=== PATIENT | male | born 1935 | race Caucasian/White ===

== ENCOUNTER 2017-02-14 12:29 | Inpatient (IN) | payer OTHER ==
[2017-02-14] MEDS ORDERED: TYLENOL PO PRN (12:35)
[2017-02-14] MEDS ORDERED: NITROSTAT SL PRN (12:35)
[2017-02-14] MEDS ORDERED: VISTARIL INJ IM PRN (12:35)
[2017-02-14] MEDS ORDERED: ATROPINE SULFATE PFS IVP PRN (12:35)
[2017-02-14] MEDS ORDERED: MORPHINE 4 MG/ML SYRINGE IVP PRN (12:35)
[2017-02-14] MEDS ORDERED: SOLU-CORTEF 250 MG IVP STA (12:39)
[2017-02-14 12:44] LABS: ABG PCO2 61.7 mmHg (35-45); ABG PH 7.367 (7.35-7.45)
[2017-02-14 12:45] LABS: ABG BASE EXCESS 10 (-2.0-2.0); ABG HCO3 35.4 (22.0-26.0); ABG TCO2 37 (22.0-28.0)
[2017-02-14 12:48] VITALS: BMI 20.9
[2017-02-14 13:24] LABS: BASOPHILS % (AUTO) 0.7 % (0.0-3.0); EOSINOPHILS # (AUTO) 0.1 K/ul (0.0-0.7); EOSINOPHILS % (AUTO) 0.9 % (0.0-7.0); HEMATOCRIT 42.9 % (42.0-52.0); HEMOGLOBIN 13.5 g/dl (14.0-18.0); IMMATURE GRANULOCYTE % (AUTO) 0.4 % (0.0-5.0); LYMPHOCYTES # (AUTO) 0.6 K/uL (0.60-3.4); LYMPHOCYTES % (AUTO) 11.2 (10.0-50.0); MEAN CORPUSCULAR HEMOGLOBIN 29.7 pg (27.0-31.0); MEAN CORPUSCULAR HGB CONC 31.5 (31.8-35.4); MEAN CORPUSCULAR VOLUME 94.3 fl (80.0-94.0); MONOCYTES # (AUTO) 0.5 K/uL (0.4-2.0); MONOCYTES % (AUTO) 9.7 (0-10); NEUTROPHILS # (AUTO) 4.3 K/ul (2.0-6.9); NEUTROPHILS % (AUTO) 77.1; PLATELET COUNT 186 10^3/uL (140-440); RED BLOOD COUNT 4.55 10^6/ul (4.70-6.10); WHITE BLOOD COUNT 5.54 K/ul (4.2-10.2)
[2017-02-14 13:26] LABS: BILIRUBIN,URINE Negative (NEGATIVE); KETONES,URINE Negative (NEGATIVE); LEUKOCYTE ESTERASE ,URINE Negative (NEGATIVE); NITRITE,URINE Negative (NEGATIVE); PH,URINE 8.5 (5-9); PROTEIN,URINE Negative (NEGATIVE); URINE, BLOOD Negative (NEGATIVE)
[2017-02-14 13:28] LABS: ADD URINE MICROSCOPIC NO
[2017-02-14] MEDS: ZITHROMAX PO SCH (13:58)
[2017-02-14] MEDS: ROCEPHIN 1 GM in SODIUM CHLORIDE 50 ML IV SCH (14:00)
[2017-02-14 14:03] LABS: ALBUMIN/GLOBULIN RATIO 1.14; ANION GAP 12.8; BILIRUBIN,TOTAL 0.77 mg/dL (0.00-1.20); BUN/CREATININE RATIO 14.49; CALCIUM 10.2 mg/dL (8.2-10.2); CREATININE 0.69 mg/dL (0.60-1.10); POTASSIUM 3.8 mmol/L (3.5-5.1); TOTAL PROTEIN 7.5 g/dL (5.8-8.1); TROPONIN I 0.042 ng/ml (0.0000-0.4000)
[2017-02-14 14:04] LABS: CREATINE KINASE MB 3.8 ng/ml (0.0-3.6)
[2017-02-14] MEDS ORDERED: ANTIVERT PO PRN (14:52)
--- NOTE | 2017-02-14 15:04 | DI ---
EXAM: Chest one view HISTORY: Shortness of air COMPARISON: 11/15/2015 TECHNIQUE: Single view of the chest was performed FINDINGS: Small right pleural effusion with adjacent atelectasis. No definite consolidation. Lung s are hyperinflated. No visible pneumothorax. Heart normal in size. Mediastinal contour unchanged , noting atherosclerosis. IMPRESSION: 1. Small right pleural effusion with adjacent atelectasis. No definite consolidation. 2. Hyperinflated lungs suggest chronic obstructive pulmonary disease
[2017-02-14] MEDS: PULMICORT 0.5 MG/2 ML NEB SCH (17:46)
[2017-02-14] MEDS: XOPENEX 1.25 MG NEB SCH ×2 (17:47→23:50)
[2017-02-14] MEDS: COZAAR PO SCH (20:28)
[2017-02-14] MEDS: XANAX PO SCH (20:28)
[2017-02-14 21:33] LABS: TROPONIN I 0.032 ng/ml (0.0000-0.4000)
[2017-02-14 21:34] LABS: CREATINE KINASE MB 3.9 ng/ml (0.0-3.6)
[2017-02-15] MEDS: PULMICORT 0.5 MG/2 ML NEB SCH ×2 (05:03→18:00)
[2017-02-15] MEDS: XOPENEX 1.25 MG NEB SCH ×3 (05:03→18:01)
[2017-02-15] MEDS ORDERED: DECADRON 4 MG/ML SDV IVP STA ×2 (08:38→09:25)
[2017-02-15 08:52] LABS: ABG PH 7.371 (7.35-7.45)
[2017-02-15 08:56] LABS: ABG BASE EXCESS 10 (-2.0-2.0); ABG HCO3 35.4 (22.0-26.0); ABG PCO2 61.1 mmHg (35-45); ABG TCO2 37 (22.0-28.0)
[2017-02-15] MEDS: ROCEPHIN 1 GM in SODIUM CHLORIDE 50 ML IV SCH (09:23)
[2017-02-15] MEDS: ZITHROMAX PO SCH (09:23)
[2017-02-15] MEDS: COZAAR PO SCH ×2 (09:23→21:08)
[2017-02-15] MEDS: LIPITOR PO SCH (09:23)
[2017-02-15] MEDS: NORVASC PO SCH (09:24)
[2017-02-15] MEDS: ASPIRIN EC PO SCH (09:24)
[2017-02-15 09:26] LABS: ABG BASE EXCESS 10 (-2.0-2.0); ABG PCO2 59.3 mmHg (35-45); ABG PH 7.379 (7.35-7.45)
[2017-02-15 09:27] LABS: ABG TCO2 37 (22.0-28.0)
--- NOTE | 2017-02-15 09:43 | PCM.PROG ---
Attending Provider: ATTENDING PROVIDER: Dr. BRIANA TORRES DATE OF SERVICE: 02/15/17 SUBJECTIVE: This 82 year old WHITE/ M was hospitalized 02/14/17 with acute respiratory failure and bronchitis. The patient is feeling a lot better. REVIEW OF SYSTEMS: CONSTITUTIONAL: No night sweats. No fatigue, malaise, lethargy. No fever or chills. HEENT: Eyes: No visual changes. No eye pain. No eye discharge. ENT: No runny nose. No epistaxis. No sinus pain. No odynophagia. No congestion. RESPIRATORY: No cough, no congestion. No hemoptysis. CARDIOVASCULAR: No angina symptoms. No CHF symptoms. No atypical chest pain for CAD. No palpitations. No shortness of breath. GASTROINTESTINAL: No abdominal pain. No nausea or vomiting. No diarrhea or constipation. No hematemesis. No hematochezia. GENITOURINARY: No urgency. No frequency. No dysuria. No hematuria. No obstructive symptoms. No discharge. No pain. No significant abnormal bleeding. MUSCULOSKELETAL: No musculoskeletal pain; no joint swelling. NEUROLOGICAL: Awake, alert, oriented to time, place and person. No headache. No neck pain. No syncope. No seizures. No dizziness. PSYCHIATRIC: Not anxious. No depression. No suicidal thoughts. No homicidal thoughts. SKIN: No rash. No lesions. No wounds. ENDOCRINE: No unexplained weight loss. No weight gain. HEMATOLOGIC/LYMPHATIC: No anemia. No purpura. No petechiae. No prolonged or excessive bleeding. No palpable lymph nodes. PHYSICAL EXAMINATION: GENERAL: The patient is awake, alert and oriented to time, place and person, sitting in bed in no distress. VITAL SIGNS: Temperature 96.9 F, Pulse 71, Respiratory Rate 22, BP 135/67, Pulse Ox 98% HEENT: Head normocephalic, atraumatic. Eyes: Extraocular muscles are intact. Pupils are equal, round and reactive to light and accommodation. Ears: No lesions. Nose appeared normal. Throat: No exudate or erythema. NECK: Supple. No JVD, no carotid bruit. No lymphadenopathy or thyromegaly. LUNGS:Decreased and clear to auscultation. Percussion note normal. Chest symmetrical. HEART: S1, S2, no S3. No murmurs. No cyanosis or clubbing. No ascites. Pulses: Dorsalis pedis and posterior tibial pulses +1 to +2 both sides. ABDOMEN: Soft. Non-tender. Bowel sounds active. No CVA tenderness. No mass felt. EXTREMITIES: No edema. Full range of motion of all extremities, equal. NEUROLOGIC: No focal deficit. Cranial nerves II through XII are grossly intact. No headache, no double vision or headache. SKIN: Not dry. Intact. Turgor-normal. LYMPHATIC: No palpable lymph nodes/no lymphedema. MUSCULOSKELETAL: Normal joints with no swelling. Muscle tone is normal. LAB REVIEW: 02/14/17 13:10 02/14/17 13:20 02/14/17 20:50: Total Creatine Kinase 177, CK-MB (CK-2) 3.9 H, CK-MB (CK-2) % 2.09426, Myoglobin 129, Troponin I 0.0320 02/14/17 13:23: B-Natriuretic Peptide 60 02/14/17 13:20: Sodium 137, Potassium 3.8, Chloride 94 L, Carbon Dioxide 34 H, Anion Gap 12.8, BUN 10, Creatinine 0.69, Estimated GFR (MDRD) 110.00, BUN/ Creatinine Ratio 14.49, Glucose 100, Calcium 10.2, Total Bilirubin 0.77, AST 22 , ALT 12, Alkaline Phosphatase 74, Total Creatine Kinase 176, CK-MB (CK-2) 3.8 H , CK-MB (CK-2) % 2.31784, Myoglobin 123, Troponin I 0.0420, Total Protein 7.5, Albumin 4.0, Globulin 3.5, Albumin/Globulin Ratio 1.14 02/14/17 13:10: WBC 5.54, RBC 4.55 L, Hgb 13.5 L, Hct 42.9, MCV 94.3 H, MCH 29.7 , MCHC 31.5 L, RDW Coeff of Amber 13.2, Plt Count 186, Immature Gran % (Auto) 0.4 , Neut % (Auto) 77.1, Lymph % (Auto) 11.2, [place] % (Auto) 9.7, Eos % (Auto) 0.9, Baso % (Auto) 0.7, Immature Gran # (Auto) 0.0, Neut # 4.3, Lymph # 0.6, [place] # 0.5, Eos # 0.1, Baso # 0.0, Urine Color Yellow, Urine Clarity Clear, Urine pH 8.5, Ur Specific [place] 1.015, Urine Protein Negative, Urine Glucose (UA) Negative, Urine Ketones Negative, Urine Blood Negative, Urine Nitrite Negative, Urine Bilirubin Negative, Urine Urobilinogen 0.2, Ur Leukocyte Esterase Negative 02/14/17 12:38: Puncture Site Rr, O2 Saturation 88.0 L, ABG pH 7.367, ABG pCO2 61.7 H, ABG pO2 59.0 L*, ABG HCO3 35.4 H, ABG Total CO2 37 H, ABG Base Excess 10 H, Steven Test +, O2 Delivery Device Nc, Oxygen Liter Flow 2.00, FiO2 % 28.0 ASSESSMENT: 1. Respiratory failure 2. Bronchitis 3. Pleuritic pain PLAN: 1. Steroids 2. Oxygen 3. Antibiotics Plan and coordination of the patient's care discussed in the presence of Motorcycle Fabricator and nurse. CONDITION: Stable The patient's oxygen tank was empty and that could have triggered all his respiratory problems. The patient is stubborn and non compliant. SCRIBED BY: CHIKI MOORE Cardiology Teacher scribed while in presence of service performed by Dr. BRIANA TORRES on 02/15/17 ([id number])
--- NOTE | 2017-02-15 13:33 | HP ---
DATE OF SERVICE: 02/14/17 REASON FOR HOSPITALIZATION/HISTORY OF PRESENT ILLNESS: The patient walked into the office. The patient is on 2 liters nasal cannula. Shortness of breath with minimal exertion. 86% oxygen saturation with exertion. Sinus drainage/cough. Duration of symptoms 7 days, getting worse. Son drive him to the office. REVIEW OF SYSTEMS: CONSTITUTIONAL: No fever, Fatigue. HEENT: No sinus drainage, no sore throat. RESPIRATORY: Cough, no congestion. CARDIOVASCULAR: No atypical chest pain for coronary artery disease. No angina , CHF symptoms, palpitations. Shortness of breath. GASTROINTESTINAL: No melena or abdominal pain. No GERD. GENITOURINARY: No hematuria, no prostatism, no polyuria. SALES TEAM MEMBER: No blackout, no dizziness, no headache, no double vision. MUSCULOSKELETAL: Osteoarthritis pain, no joint swelling. ENDOCRINE: No weight loss, no weight gain. SKIN: Not dry, no rash. PSYCHIATRIC: Not anxious, no depression, no suicidal thoughts, no homicidal thoughts. SOCIAL HISTORY: Marital Status: . Alcohol Usage: No. Tobacco Usage: Quit 25 years ago. Family history: Father , Mother - Adopted and 2 sisters one COPD and one alive unknown. MEDICAL/SURGICAL HISTORY: COPD Chronic bronchitis Hypertension Dyslipidemia Dizziness Anemia Appendectomy years ago. MEDICATIONS: Aspirin EC 81mg Po daily Proventil 2 grams IH four times a day Cozaar 50mg PO twice a day Norvasc 5mg PO daily Spiriva 18mcg IH daily Atorvastatin 20mg PO daily Symbicort 160-4.5mcg one puff IH twice a day Antivert 25mg PO four times a day PRN Xanax 0.25mg PO bedtime ALLERGIES: No known allergies. PHYSICAL EXAMINATION: V/S: Pulse 84, blood pressure 158/64, O2sat 93%, BMI 138.8. GENERAL APPEARANCE: Oriented times three. Pallor. Tired looking. HEENT: Normal. NECK: No JVP, no bruits. RESPIRATORY: Lungs are clear. Decreased breath sounds. CARDIOVASCULAR: S1, S2, no S3, Grade II/IV systolic ejection murmur. No cyanosis, clubbing. No ascites. GI/ABDOMEN: No tenderness. Bowel sounds are active. EXTREMITIES: edema, pulses +1, equal. SALES TEAM MEMBER: Deep tendon reflexes, sensory, motor and gait all normal. RECTAL: Refused/PROSTATE: 11-15 (4.7) Dr. Luu . LABS: The patients U/A was normal. The patient's ABG on 2 liters showed pO2 59, pCO2 61 and pH 7.36 with 80 % saturation. Hgb 13.5, hct 42.9, WBC 5,500 normal differentia. BUN 60. Chest x-ray shows more pleural effusion with possibility of atelectasis. Hyperinflated lungs were noted. BNP showed creatinine of 0.6, BUN 10, potassium 3.8, CK-MB 3.8, total CK 176. Liver profile normal. ASSESSMENT: 1. Acute respiratory failure 2. Pneumonitis 3. Pleuritic pain 4. COPD/Chronic bronchitis 5. mild/Moderate 6. Hypertension 7. Dyslipidemia 8. Severe atheronecrosis 9. Right Carotid 50-70% 10.History fo dizziness 11.Anemia 12.O2@ HS PLAN: 1. Admit (Special Care) 2. 2 CC Decadron in office 3. Routine Telemetry order 4. ABG stat 5. IV Solu-Cortef 125mg IV now 6. NEBS four times a day Xopenex 7. Pulmicort twice a day 8. Xanax 0.25mg PO at HS-Home medication 9. Atorvastatin 20mg PO daily- Home medication 10.Continue all home medications 11.Rocephin 1 gram IV now and Q 4 hours 12.Zithromax 500mg PO daily X 3 days 13.Blood cultures X2 14.Sputum Culture X2 15.BNP 16.Echo TIME SPENT: More than 70 minutes. MTDD
[2017-02-15] MEDS: XANAX PO SCH (21:08)
[2017-02-16] MEDS: XOPENEX 1.25 MG NEB SCH ×3 (00:05→11:07)
[2017-02-16] MEDS: PULMICORT 0.5 MG/2 ML NEB SCH (05:16)
[2017-02-16 07:09] LABS: EOSINOPHILS % (AUTO) 0.3 % (0.0-7.0); HEMATOCRIT 42.1 % (42.0-52.0); HEMOGLOBIN 13.4 g/dl (14.0-18.0); IMMATURE GRANULOCYTE % (AUTO) 0.3 % (0.0-5.0); LYMPHOCYTES # (AUTO) 1.1 K/uL (0.60-3.4); LYMPHOCYTES % (AUTO) 14.4 (10.0-50.0); MEAN CORPUSCULAR HEMOGLOBIN 29.6 pg (27.0-31.0); MEAN CORPUSCULAR HGB CONC 31.8 (31.8-35.4); MEAN CORPUSCULAR VOLUME 93.1 fl (80.0-94.0); MONOCYTES # (AUTO) 0.9 K/uL (0.4-2.0); MONOCYTES % (AUTO) 12.1 (0-10); NEUTROPHILS # (AUTO) 5.5 K/ul (2.0-6.9); NEUTROPHILS % (AUTO) 72.9; PLATELET COUNT 94 10^3/uL (140-440); RED BLOOD COUNT 4.52 10^6/ul (4.70-6.10)
[2017-02-16 07:26] LABS: ALBUMIN 3.6 g/dL (3.4-5.0); ALBUMIN/GLOBULIN RATIO 1.16; ANION GAP 14.3; BILIRUBIN,TOTAL 0.5 mg/dL (0.00-1.20); BUN/CREATININE RATIO 22.85; CALCIUM 9.9 mg/dL (8.2-10.2); CREATININE 0.7 mg/dL (0.60-1.10); POTASSIUM 5.3 mmol/L (3.5-5.1); TOTAL PROTEIN 6.7 g/dL (5.8-8.1)
[2017-02-16] MEDS: LIPITOR PO SCH (08:27)
[2017-02-16] MEDS: ROCEPHIN 1 GM in SODIUM CHLORIDE 50 ML IV SCH (08:27)
[2017-02-16] MEDS: ASPIRIN EC PO SCH (08:28)
[2017-02-16] MEDS: COZAAR PO SCH (08:28)
[2017-02-16] MEDS: ZITHROMAX PO SCH (08:28)
[2017-02-16] MEDS: NORVASC PO SCH (08:28)
[2017-02-16 09:33] VITALS: BP 122/61; TEMP 97.2
--- NOTE | 2017-02-16 09:33 | PCM.PROG ---
Attending Provider: ATTENDING PROVIDER: Dr. BRIANA TORRES rounds made by Dr. Hanks (covering for Dr. Torres) DATE OF SERVICE: 02/16/17 SUBJECTIVE: This 82 year old WHITE/ M was hospitalized 02/14/17. The patient's breathing better, still short of breath and needing oxygen. It has been discussed about the use of oxygen and risk of fire and the patient verbalized understanding. r. REVIEW OF SYSTEMS: CONSTITUTIONAL: No night sweats. No fatigue, malaise, lethargy. No fever or chills. HEENT: Eyes: No visual changes. No eye pain. No eye discharge. ENT: No runny nose. No epistaxis. No sinus pain. No odynophagia. No congestion. RESPIRATORY: No cough, no congestion. No hemoptysis. CARDIOVASCULAR: No angina symptoms. No CHF symptoms. No atypical chest pain for CAD. No palpitations. No shortness of breath. GASTROINTESTINAL: No abdominal pain. No nausea or vomiting. No diarrhea or constipation. No hematemesis. No hematochezia. GENITOURINARY: No urgency. No frequency. No dysuria. No hematuria. No obstructive symptoms. No discharge. No pain. No significant abnormal bleeding. MUSCULOSKELETAL: No musculoskeletal pain; no joint swelling. NEUROLOGICAL: Awake, alert, oriented to time, place and person. No headache. No neck pain. No syncope. No seizures. No dizziness. PSYCHIATRIC: Not anxious. No depression. No suicidal thoughts. No homicidal thoughts. SKIN: No rash. No lesions. No wounds. ENDOCRINE: No unexplained weight loss. No weight gain. HEMATOLOGIC/LYMPHATIC: No anemia. No purpura. No petechiae. No prolonged or excessive bleeding. No palpable lymph nodes. PHYSICAL EXAMINATION: GENERAL: The patient is awake, alert and oriented to time, place and person, sitting in bed in no distress and WANTS TO GO HOME. VITAL SIGNS: Temperature 97.0 F, Pulse 65, Respiratory Rate 22, BP 157/70, Pulse Ox 100% HEENT: Head normocephalic, atraumatic. Eyes: Extraocular muscles are intact. Pupils are equal, round and reactive to light and accommodation. Ears: No lesions. Nose appeared normal. Throat: No exudate or erythema. Mucosa dry. Pallor positive. NECK: Supple. No JVD, no carotid bruit. No lymphadenopathy or thyromegaly. LUNGS: Decreased and clear to auscultation. Percussion note normal. Chest symmetrical. HEART: S1, S2, no S3. No murmurs. No cyanosis or clubbing. No ascites. Pulses: Dorsalis pedis and posterior tibial pulses +1 to +2 both sides. ABDOMEN: Soft. Non-tender. Bowel sounds active. No CVA tenderness. No mass felt. EXTREMITIES: No edema. Full range of motion of all extremities, equal. NEUROLOGIC: No focal deficit. Cranial nerves II through XII are grossly intact. No headache, no double vision or headache. SKIN: Not dry. Intact. Turgor-normal. LYMPHATIC: No palpable lymph nodes/no lymphedema. MUSCULOSKELETAL: Normal joints with no swelling. Muscle tone is normal. LAB REVIEW: 02/16/17 06:25 02/16/17 06:25 02/16/17 06:25: WBC 7.50, RBC 4.52 L, Hgb 13.4 L, Hct 42.1, MCV 93.1, MCH 29.6, MCHC 31.8, RDW Coeff of Amber 13.1, Plt Count 94 L D, Immature Gran % (Auto) 0.3, Neut % (Auto) 72.9, Lymph % (Auto) 14.4, [place] % (Auto) 12.1 H, Eos % (Auto) 0.3 , Baso % (Auto) 0.0, Immature Gran # (Auto) 0.0, Neut # 5.5, Lymph # 1.1, [place] # 0.9, Eos # 0.0, Baso # 0.0, Sodium 134 L, Potassium 5.3 H, Chloride 94 L, Carbon Dioxide 31, Anion Gap 14.3, BUN 16, Creatinine 0.70, Estimated GFR (MDRD ) 108.00, BUN/Creatinine Ratio 22.85, Glucose 99, Calcium 9.9, Total Bilirubin 0.50, AST 27, ALT 14, Alkaline Phosphatase 61, Total Protein 6.7, Albumin 3.6, Globulin 3.1, Albumin/Globulin Ratio 1.16 02/15/17 09:15: Puncture Site R brach, O2 Saturation 86.0 L, ABG pH 7.379, ABG pCO2 59.3 H, ABG pO2 54.0 L*, ABG HCO3 35.0 H, ABG Total CO2 37 H, ABG Base Excess 10 H, Steven Test +, FiO2 % 21.0 02/15/17 08:45: Puncture Site R rad, O2 Saturation 96.0, ABG pH 7.371, ABG pCO2 61.1 H, ABG pO2 89.0, ABG HCO3 35.4 H, ABG Total CO2 37 H, ABG Base Excess 10 H , Steven Test +, O2 Delivery Device Nc, Oxygen Liter Flow 2.00 ASSESSMENT: 1. Respiratory failure 2. Bronchitis 3. Pleuritic pain PLAN: 1. Discharge home 2. Oxygen 2 liters nasal cannula 3. Keflex 500mg twice a day for 7 days 4. Prednisone 10mg twice for 7 days 5. DUO NEB three times a day 6. Followup in office on with Dr. Torres Plan and coordination of the patient's care discussed in the presence of Chisel Worker and nurse. CONDITION: Stable SCRIBED BY: Mau WEBER scribed while in presence of service performed by Dr. BRIANA TORRES on 02/16/17 ([id number])
--- NOTE | 2017-02-16 10:35 | CM.DICTOOL ---
ADMISSION: 02/14/17 12:29 DISCHARGE: February 16, 2017 DATE OF SERVICE: 02/16/17 FINAL DIAGNOSIS Acute respiratory failure Pleuritic pain Pneumonitis Hypertension COPD Aortic Stenosis, mild to moderate per echocardiogram Severe Atherosclerosis Right Carotid Stenosis, 50-70% (2015) Anemia Dyslipidemia LAST VITALS Temp Pulse Resp BP Pulse Ox 97.2 F L 65 20 122/61 97 02/16/17 09:31 02/16/17 09:31 02/16/17 09:31 02/16/17 09:31 02/16/17 09:31 ACTIVE HOME MEDICATIONS Alprazolam (Xanax) 0.25 mg PO BEDTIME [facility] Last Admin: 02/15/17 21:08 Dose: 0.25 mg Amlodipine Besylate (Norvasc) 5 mg PO DAILY [facility] Last Admin: 02/16/17 08:28 Dose: 5 mg Aspirin (Aspirin Ec) 81 mg PO DAILYWM [facility] Last Admin: 02/16/17 08:28 Dose: 81 mg Atorvastatin Calcium (Lipitor) 20 mg PO DAILY [facility] Last Admin: 02/16/17 08:27 Dose: 20 mg Losartan Potassium (Cozaar) 50 mg PO BID [facility] Last Admin: 02/16/17 08:28 Dose: 50 mg Meclizine HCl (Antivert) 25 mg PO QID PRN PRN Reason: Dizziness Albuterol Sulfate (ProAir) 2 gram IH QID Last Dose: Symbicort 160-4.5 Inhaler 1 puff BID Last Admin: ALLERGIES No Known Allergies Allergy (Verified 12/17/14 16:33) NEW PRESCRIPTIONS: Duonebs for nebulizer 1 treatment TID Keflex 500 mg BID for 7 days Prednsione 10 mg BID for 7 days take with food Alprazolam 0.25 mg at bedtime for sleep (refill rx) SMOKING: Not Applicable DISEASE SPECIFIC EDUCATION: COPD Use of oxygen continuous Medications Appointments LAB REVIEW: 02/16/17 06:25 02/16/17 06:25 02/16/17 06:25: WBC 7.50, RBC 4.52 L, Hgb 13.4 L, Hct 42.1, MCV 93.1, MCH 29.6, MCHC 31.8, RDW Coeff of Amber 13.1, Plt Count 94 L D, Immature Gran % (Auto) 0.3, Neut % (Auto) 72.9, Lymph % (Auto) 14.4, [place] % (Auto) 12.1 H, Eos % (Auto) 0.3 , Baso % (Auto) 0.0, Immature Gran # (Auto) 0.0, Neut # 5.5, Lymph # 1.1, [place] # 0.9, Eos # 0.0, Baso # 0.0, Sodium 134 L, Potassium 5.3 H, Chloride 94 L, Carbon Dioxide 31, Anion Gap 14.3, BUN 16, Creatinine 0.70, Estimated GFR (MDRD ) 108.00, BUN/Creatinine Ratio 22.85, Glucose 99, Calcium 9.9, Total Bilirubin 0.50, AST 27, ALT 14, Alkaline Phosphatase 61, Total Protein 6.7, Albumin 3.6, Globulin 3.1, Albumin/Globulin Ratio 1.16 PLAN: Discharge home Diet: as tolerated, heart healthy Activity: gradually resume as tolerated Use Oxygen continuously at 1 liter per cannula. Use nebulizer TID with medication No changes in home medications An appointment is scheduled with Dr. Flores on February 22 at 9 am. Mr. Wagner is alert and oriented x 3. He is independent with ADL's and ambulatory without staff assistance or use of assistive device. He has home oxygen through [employer]. [facility] has been advised of new liter flow of 1 liter for oxygen with new order sent. A nebulizer has been ordered through [employer]. No abdominal pain or nausea reported. Meal intakes are good at 50-100%. Skin is intact and free of open areas, rashes or irritation. The son is present at time of discharge. Recommendation for continuous oxygen and new flow of 1 liter discussed with the son. Antony Hanks MD for Roland Flores MD
--- NOTE | 2017-02-20 14:28 | ECHO2D ---
Date of Exam: 02/15/17 Ordering Physician: PRINCESS Reason for Echo: HYPERTENSION,DYSLIPIDEMIA M-Mode Normal Adult Results LV Dimensions Normal Adult Results AoV Opening excursions >1.6 1.3 LVEDD-base- 3.5-5.8 4.3 Ao root dimensions 2.0-3.7 3.7 LVESD-base- 3.1-4.6 L. Atrium dimensions 1.9-3.8 4.0 Post. Wall thickness 0.8-1.1 1.3 IV septum (thickness) 0.7-1.2 1.3 Post. Wall excursion 0.72-1.3 NORMAL Septal motion NORMAL Systolic motion R. Ventricular cavity 1.5-2.0 NORMAL LVEF 60% 64% Paradoxical septal wall motion NORMAL 2-D : MILDLY ENLARGED LEFT ATRIAL CAVITY, CALCIFIC AORTIC VALVES-MILD TO MODERATE AORTIC STENOSIS, NORMAL LEFT VENTRICULAR CONTRACTILITY--NO EFFUSION, NO THROMBUS M-MODE: MV: CALCIFIC MITRAL VALVE ANNULUS AV: CALCIFIC AORTIC STENOSIS (1.5 CM2) AREA TV: NORMAL PV: NORMAL CHAMBER SIZE: MILDLY ENLARGED WALL MOTION: NORMAL PERICARDIUM: NORMAL INTERPRETATION: 1. LEFT VENTRICULAR HYPERTROPHY WITH MILDLY ENLARGED LEFT ATRIAL CAVITY 2. NORMAL LEFT VENTRICULAR CONTRACTILITY 3. CALCIFIC MILD TO MODERATE AORTIC STENOSIS MTDD
--- NOTE | 2017-02-22 09:15 | DS ---
DATE OF SERVICE: 02/16/17 FINAL DIAGNOSIS: 1. Acute respiratory failure 2. Pleuritic pain 3. Pneumonitis 4. Hypertension 5. COPD 6. Aortic stenosis, mild to moderate per echocardiogram 7. Severe atherosclerosis 8. Right carotid stenosis, 50-70% (October 2015) 9. Anemia 10. Dyslipidemia LAST VITALS: Temperature 97.2, pulse 65, respiratory rate 20, blood pressure 122/61 and pulse ox 97% DISCHARGE INSTRUCTIONS: Discharge home. Use oxygen continuously at 1 liter per cannula. Use nebulizer three times a day with medication. No changes in home medications. An appointment is scheduled with Dr. Flores on February 9am. MEDICATIONS AT DISCHARGE: Xanax 0.25mg PO bedtime Norvasc 5mg PO daily Aspirin EC 81mg PO daily Lipitor 20mg PO daily Cozaar 50mg Po twice a day Antivert 25mg PO four times a day PRN ProAir 2 grams IH four times a day Symbicort 160-4.5 inhaler 1 puff twice a day ALLERGIES: No known allergies NEW PRESCRIPTIONS: GINA for nebulizer one treatment three times a day Keflex 500ng twice a day for 7 days Prednisone 10mg twice a day take with food Alprazolam 0.25mg at bedtime for sleep (refill rx) DIET INSTRUCTIONS: As tolerated, heart healthy ACTIVITY: Gradually resume as tolerated SMOKING: N/A DISEASE SPECIFIC EDUCATION: COPD Use of oxygen continuous Medications Appointments HOSPITAL COURSE: The patient is an 82 year old white male was hospitalized with acute respiratory failure and possibility of acute bronchitis with severe chronic lung disease. The patient was treated in the hospital with antibiotics Zithromax and Rocephin. He was also given steroids. The patient's condition improved and his blood gasses showed an improvement and was feeling a lot better. There was a possibility that the patient had an out of oxygen and continued to carry around the empty cylinder or stubborn enough not to tell anybody. When he was seen in the office his saturation was 86% what looked like on two liters. In any case at the time of discharge the patient is up and about , feeling a lot better and he isn't dizzy. His appetite has improved and he was strongly advised to start pulmonary rehab. Side effect of steroids discussed like cataracts, avascular necrosis of the femoral heads etc. CONDITION: Stable TIME SPENT: More than 60 minutes. [facility]
--- NOTE | 2017-02-22 09:18 | PN ---
02/14/17: Level 5 02/15/17: Intermediate 02/16/17: D as in discharge MTDD
== END 2017-02-16 12:03 | disposition home or self-care (01) | DRG 189 ==
LOC: SCU 12:29
PROVIDERS: ADMIT Internal Medicine; ATTEND Internal Medicine
DX: J96.00 Acute respiratory failure, unspecified whether with hypoxia or hypercapnia (principal); J18.9 Pneumonia, unspecified organism; J44.0 Chronic obstructive pulmonary disease with (acute) lower respiratory infection; J20.9 Acute bronchitis, unspecified; I10 Essential (primary) hypertension; R06.02 Shortness of breath; I35.0 Nonrheumatic aortic (valve) stenosis; I65.21 Occlusion and stenosis of right carotid artery; D64.9 Anemia, unspecified; E78.5 Hyperlipidemia, unspecified; Z99.81 Dependence on supplemental oxygen; Z87.891 Personal history of nicotine dependence; Z79.899 Other long term (current) drug therapy
CPT/HCPCS: 36415; 80053; 81001; 82550; 82553; 82803; 83874; 83880; 84484; 85025; 87040; 87070; 87081; 87186; 93005; 93010; 94640; 97802

== ENCOUNTER 2017-11-17 08:39 | Inpatient (IN) ==
[2017-11-17] MEDS ORDERED: SOLU-MEDROL 125 MG IVP STA (08:41)
[2017-11-17] MEDS ORDERED: DUONEB NEB STA (08:41)
--- NOTE | 2017-11-17 08:52 | ED.PDOC ---
General ED Provider: Dr. MAGGIE AGUILAR Chief Complaint: Shortness of Air Stated Complaint: Patient states he has been feeling ill for the past 3 days with cough that is productive of yellow sputum and shortness of breath. Usually uses 1 liter of oxygen. Quit smoking 30 year ago. Not sure if he has been exposed to persons with the Flu. He has been on Oral steroids and Keflex for 3 days but has not helped. Time Seen by Physician: 08:51 Mode of Arrival: Wheelchair Information Source: Patient Exam Limitations: No limitations Primary Care Provider: BRIANA TORRES Nursing and Triage Documentation Reviewed and Agree: Yes Reviewed sepsis parameters & appropriate labs ordered?: Yes (obtained ) System Inflammatory Response Syndrome: Pulse >90 BPM, Resp >20/Minute Sepsis Protocol: For patient's 13 years and over: Temp is 96.8 and below OR 101 and greater Pulse >90 BPM Resp >20/minute Acutely Altered Mental Status Are patient's symptoms suggestive of a new infection, such as: -Pneumonia -Skin, Soft Tissue -Endocarditis -UTI -Bone, Joint Infection -Implantable Device -Acute Abdominal Infection -Wound Infection -Meningitis -Blood Stream Catheter Infection -Unknown System Inflammatory Response Syndrome: Not Applicable Respiratory Complaint Exam - Respiratory Complaint/Exam Onset/Duration: 3 days Symptoms Are: Still present Timing: Constant Initial Severity: Moderate Current Severity: Severe Location: Chest Character: Reports: Productive cough Aggravating: Reports: URI, Weather Alleviating: Reports: None Associated Signs and Symptoms: Reports: Rapid breathing, Dyspnea, Wheezing, URI. Denies: Fever, Chills, Chest pain, Pleuritic chest pain, Hemoptysis, Dizziness, Calf pain, Calf swelling, Edema, Nasal congestion, Hoarseness, Sinus discomfort, Vomiting, Sore throat, Weight loss, Decreased oral intake, Increased thirst, Increased appetite, Increased urination Related History: Reports: Similar episode History of Healthcare-Acquired Pneumonia: No Related Surgical History: Reports: None Pulmonary Embolism Risk Factors: None Cardiac Risk Factors: Reports: Hypertension Pseudomonas Risk Factors: Reports: Chronic Lung Disease. Denies: Bronchiectasis , Repeat Antibx in 3 months, Chronic steriod use Tuberculosis Risk Factors: Reports: None Status Asthmaticus Risk Factors: Reports: Recent steriods Home Oxygen Use: Yes (1 ) Recent Stress Test: No Recent Echo/LV Function: No Current Antibiotic Use: Yes (keflex) Current Asthma Medication Use: No Inadequate Respiratory Effort: No Dysphagia Present: No Stridor Present: No JVD Present: No Accessory Muscle Use: No Retractions: Not Present Diminished Breath Sounds: Yes Sinus Tenderness: None Grunting Respirations: No Kussmaul Respirations: No Differential Diagnoses: COPD Exacerbation, Pneumonia, Bronchitis, URI, Influenza Non-Traumatic Chest Pain Syncope: EKG Performed Review of Systems - Review Of Systems Constitutional: Reports: Loss of appetite Eyes: Reports: No symptoms Ears, Nose, Mouth, Throat: Reports: No symptoms Respiratory: Reports: Cough, Short of air, Wheezing Cardiac: Reports: No symptoms GI: Reports: No symptoms : Reports: No symptoms Musculoskeletal: Reports: No symptoms Skin: Reports: No symptoms Neurological: Reports: Anxiety All Other Systems: Reviewed and Negative Past Medical History - Past Medical History Previously Healthy: Yes Endocrine: Reports: None Cardiovascular: Reports: Hypertension Respiratory: Reports: COPD Hematological: Reports: None Gastrointestinal: Reports: None Genitourinary: Reports: None Neuro/Psych: Reports: None Musculoskeletal: Reports: None Cancer: Reports: None Other Pertinent Past Medical History: heart murmur, shingles - Surgical History General Surgical History: Reports: None - Family History Family History: Reports: None - Social History Smoking Status: Former smoker Hx Substance Use: No Alcohol Screening: None - Immunizations Tetanus Shot up to Date: No Physical Exam - Physical Exam Appearance: Ill-appearing, Thin Ill-appearing: Moderate Pain Distress: None Neck: Supple Respiratory: Breath sounds diminished, Rhonchi, Wheezes Cardiovascular: Pulses normal, No rub, Tachycardia GI/: Soft, Nontender, No masses, Bowel sounds normal, No Organomegaly Musculoskeletal: Normal strength Skin: Warm, Dry, Normal color Neurological: Sensation intact, Alert, Oriented Psychiatric: Anxious Interpretation - Radiology Interpretation Radiology Interpretation By: ED Physician Radiology Results: Positive (minimal increased Lung Markings in the right Base probably atelectatis Although early infiltrate is possible, COPD changes.) Exam Interpreted: Portable CXR - EKG Interpretation Time of EKG #1: 09:22 Rate: Tachy Rhythm: Sinus Ectopy: None [place]: NL ST Segment: Normal Physician Notification - Case Discussed Physician Notified: Torres Time of Notification: 10:12 (Admit to SCU) Critical Care Note - Critical Care Note Total Time (mins): 40 Course - Course Hematology/Chemistry: 11/17/17 09:00 11/17/17 09:00 Orders, Labs, Meds: Lab Review 11/17/17 11/17/17 11/17/17 08:41 09:00 09:00 WBC RBC Hgb Hct MCV MCH MCHC RDW Coeff of Amber Plt Count Immature Gran % (Auto) Neut % (Auto) Lymph % (Auto) Baker % (Auto) Eos % (Auto) Baso % (Auto) Immature Gran # (Auto) Neut # Lymph # Baker # Eos # Baso # Puncture Site Rr O2 Saturation 71.0 L ABG pH 7.420 ABG pCO2 50.3 H ABG pO2 37.0 L* ABG HCO3 32.7 H ABG Total CO2 34 H ABG Base Excess 8 H Steven Test + O2 Delivery Device Nc Oxygen Liter Flow 1.00 Sodium Potassium Chloride Carbon Dioxide Anion Gap BUN Creatinine Estimated GFR (MDRD) BUN/Creatinine Ratio Glucose Lactic Acid 12.5 Calcium Total Bilirubin AST ALT Alkaline Phosphatase Total Creatine Kinase Troponin I B-Natriuretic Peptide 53 Total Protein Albumin Globulin Albumin/Globulin Ratio Influenza A (Rapid) Influenza B (Rapid) 11/17/17 11/17/17 11/17/17 09:00 09:00 09:05 WBC 14.81 H RBC 3.98 L Hgb 12.5 L Hct 38.6 L MCV 97.0 H MCH 31.4 H MCHC 32.4 RDW Coeff of Amber 13.6 Plt Count 251 Immature Gran % (Auto) 0.4 Neut % (Auto) 78.0 Lymph % (Auto) 10.3 Baker % (Auto) 10.9 H Eos % (Auto) 0.3 Baso % (Auto) 0.1 Immature Gran # (Auto) 0.1 Neut # 11.6 H Lymph # 1.5 Baker # 1.6 Eos # 0.0 Baso # 0.0 Puncture Site O2 Saturation ABG pH ABG pCO2 ABG pO2 ABG HCO3 ABG Total CO2 ABG Base Excess Steven Test O2 Delivery Device Oxygen Liter Flow Sodium 139 Potassium 4.0 Chloride 95 L Carbon Dioxide 34 H Anion Gap 14.0 BUN 23 H Creatinine 0.91 Estimated GFR (MDRD) 80.00 BUN/Creatinine Ratio 25.27 Glucose 120 H Lactic Acid Calcium 10.2 Total Bilirubin 0.7 AST 16 ALT 14 Alkaline Phosphatase 65 Total Creatine Kinase 37 Troponin I 0.0170 B-Natriuretic Peptide Total Protein 6.9 Albumin 3.5 Globulin 3.4 Albumin/Globulin Ratio 1.03 Influenza A (Rapid) Negative by naat Influenza B (Rapid) Negative by naat Orders Category Date Time Status ABG DRAW REQUEST Stat CARDIO 11/17/17 08:43 Completed ABG DRAW REQUEST Stat CARDIO 11/17/17 09:52 Ordered EKG-(ED ONLY) Stat CARDIO 11/17/17 08:42 Completed NEBULIZER TREATMENT Stat CARDIO 11/17/17 08:43 Completed ED APPLY O2 .ONCE EMERGENCY 11/17/17 08:41 Active ED IV/MEDIPORT/POWERPORT .ONCE EMERGENCY 11/17/17 08:41 Active ABG Stat LAB 11/17/17 08:41 Completed ABG Stat LAB 11/17/17 09:52 Ordered B-TYPE NATRIURETIC PEPTIDE Stat LAB 11/17/17 09:00 Completed BLOOD CULTURE (ED ONLY) Stat LAB 11/17/17 09:05 Received CBC W/ AUTO DIFF Stat LAB 11/17/17 09:00 Completed COMPREHENSIVE METABOLIC PANEL Stat LAB 11/17/17 09:00 Completed CREATINE KINASE Stat LAB 11/17/17 09:00 Completed FLU A/B MOLECULAR Stat LAB 11/17/17 09:05 Completed LACTIC ACID Stat LAB 11/17/17 09:00 Completed PROLACTIN Stat LAB 11/17/17 09:00 Received RAPID STREP SCREEN [MOLECULAR GROUP A STREP] Stat LAB 11/17/17 09:05 Completed TROPONIN I Stat LAB 11/17/17 09:00 Completed 0.9 % Sodium Chloride [Saline Flush] MEDS 11/17/17 08:41 Active 1 syr IVF PRN PRN Ipratropium/Albuterol Neb [Duoneb] MEDS 11/17/17 08:41 Discontinued 1 vial NEB ONCE STA Levofloxacin/D5w [Levaquin] 100 ml MEDS 11/17/17 09:57 Discontinued IV .STK-MED Levofloxacin/D5w [Levaquin] 500 mg MEDS 11/17/17 09:52 Active Premix 100 ml D5w 1 bag IV ONCE Methylprednisolone Sod Succ/Pf [Solu-Medrol 125 mg] MEDS 11/17/17 08:41 Discontinued 125 mg IVP ONCE STA CHEST, 1V AP ONLY Stat RADS 11/17/17 08:42 Completed Medications Generic Name Dose Route Start Last Admin Trade Name Freq PRN Reason Stop Dose Admin Levofloxacin/Dextrose 500 mg/ 100 mls @ 100 mls/hr 11/17/17 09:52 Dextrose IV 11/17/17 10:51 ONCE STA Sodium Chloride 1 syr 11/17/17 08:41 Saline Flush IVF PRN PRN To flush IV Discontinued Medications Generic Name Dose Route Start Last Admin Trade Name Bia PRN Reason Stop Dose Admin Albuterol/Ipratropium 1 vial 11/17/17 08:41 11/17/17 09:04 Duoneb NEB 11/17/17 08:42 1 vial ONCE STA Administration Methylprednisolone Sodium Succinate 125 mg 11/17/17 08:41 11/17/17 09:23 Solu-Medrol 125 Mg IVP 11/17/17 08:42 125 mg ONCE STA Administration Vital Signs: Temp Pulse Resp BP Pulse Ox 11/17/17 08:40 99.5 F 122 H 26 H 156/73 H 71 L Departure - Departure Time of Disposition: 10:12 Disposition: ADMITTED INPATIENT Discharge Problem: COPD with exacerbation Pneumonia Qualifiers: Pneumonia type: due to unspecified organism Laterality: right Lung location: lower lobe of lung Qualified Code(s): J18.1 - Lobar pneumonia, unspecified organism Condition: Stable Pt referred to PMD for follow-up: No (Admitted ) IPMP verified?: No Allergies/Adverse Reactions: Allergies No Known Allergies Allergy (Verified 11/17/17 09:29) Home Medications: Ambulatory Orders Aspirin [Aspirin EC] 81 mg PO DAILY 11/30/14 Albuterol Sulfate [Proventil Hfa] 2 gm IH QID 12/17/14 Amlodipine Besylate [Norvasc] 5 mg PO DAILY #30 tablet 12/24/14 Losartan Potassium [Cozaar] 50 mg PO BID #60 tablet 12/24/14 Alprazolam [Xanax] 0.25 mg PO BEDTIME 02/14/17 Budesonide/Formoterol Fumarate [Symbicort 160-4.5 Mcg Inhaler] 1 puff IH BID Ipratropium/Albuterol Neb [Duoneb] 1 vial NEB RTQ8H #90 vial.neb 02/16/17 Cephalexin [Keflex] 500 mg PO TID 11/17/17 Prednisone 20 mg PO BID 11/17/17 Disposition Discussed With: Patient, Family
--- NOTE | 2017-11-17 09:22 | DI ---
EXAM: Single view chest COMPARISON: Chest Xray from 02/14/2017 HISTORY: Cough FINDINGS: There is some minimal prominent lung markings in the right base which is a bit more appare nt and may represent early infiltrate or some atelectasis. There is no overt failure or large effusi on. There is hyperexpansion and flattening of the hemidiaphragms. Cardiac and mediastinal silhouett es show no acute abnormality. There is calcific atherosclerosis of the aorta. No acute soft tissue or osseous abnormalities. IMPRESSION: 1. Minimal increased lung markings in the right base probably atelectasis although early infiltrate is possible. 2. Chronic obstructive pulmonary disease.
[2017-11-17] MEDS ORDERED: LEVAQUIN 500 MG in PREMIX 100 ML D5W 1 BAG IV STA (09:52)
[2017-11-17] MEDS ORDERED: LEVAQUIN 100 ML IV ONE (09:57)
[2017-11-17] MEDS ORDERED: TYLENOL PO PRN (10:14)
[2017-11-17] MEDS ORDERED: ZOFRAN 4 MG/2 ML IVP PRN (10:14)
[2017-11-17] MEDS ORDERED: SODIUM CHLORIDE 1,000 ML IV SCH (10:30)
[2017-11-17] MEDS: XOPENEX 1.25 MG NEB SCH ×3 (11:30→23:40)
[2017-11-17 11:37] VITALS: BMI 21.1
[2017-11-17] MEDS: SODIUM CHLORIDE 1,000 ML IV SCH (12:46)
[2017-11-17] MEDS: SOLU-MEDROL 125 MG IVP SCH ×2 (15:17→20:32)
[2017-11-17] MEDS: COZAAR PO SCH (20:32)
[2017-11-17] MEDS: XANAX PO SCH (20:32)
[2017-11-17] MEDS: SYMBICORT 160-4.5 MCG INHALER IH SCH (20:32)
[2017-11-17] MEDS ORDERED: NON-FORMULARY MEDICATION (Losartan Potassium 50 MG) PO SCH (21:00)
[2017-11-18] MEDS: SOLU-MEDROL 125 MG IVP SCH ×3 (04:19→20:40)
[2017-11-18] MEDS: XOPENEX 1.25 MG NEB SCH ×4 (05:02→22:20)
[2017-11-18] MEDS: SODIUM CHLORIDE 1,000 ML IV SCH (06:16)
[2017-11-18] MEDS: ASPIRIN EC PO SCH (09:17)
[2017-11-18] MEDS: COZAAR PO SCH ×2 (09:17→20:40)
[2017-11-18] MEDS: NORVASC PO SCH (09:18)
[2017-11-18] MEDS: SYMBICORT 160-4.5 MCG INHALER IH SCH ×2 (09:18→20:40)
[2017-11-18] MEDS: DYAZIDE PO SCH (09:18)
[2017-11-18] MEDS: NON-FORMULARY MEDICATION (Tiotropium Bromide [Spiriva Respimat] 4 GM) IH SCH ×2 (09:19→09:30)
[2017-11-18] MEDS: LEVAQUIN 500 MG in PREMIX 100 ML D5W 1 BAG IV SCH (09:20)
[2017-11-18] MEDS: LOVENOX SUBCUT SCH (09:25)
[2017-11-18] MEDS: XANAX PO SCH (20:41)
[2017-11-19] MEDS: SOLU-MEDROL 125 MG IVP SCH ×3 (04:15→20:44)
[2017-11-19] MEDS: SODIUM CHLORIDE 1,000 ML IV SCH (04:15)
[2017-11-19] MEDS: XOPENEX 1.25 MG NEB SCH ×4 (04:30→23:58)
[2017-11-19] MEDS ORDERED: XANAX PO STA (08:21)
[2017-11-19] MEDS: ASPIRIN EC PO SCH (08:39)
[2017-11-19] MEDS: COZAAR PO SCH ×2 (08:39→20:44)
[2017-11-19] MEDS: LEVAQUIN 500 MG in PREMIX 100 ML D5W 1 BAG IV SCH (08:40)
[2017-11-19] MEDS: DYAZIDE PO SCH (08:40)
[2017-11-19] MEDS: NORVASC PO SCH (08:42)
[2017-11-19] MEDS: SYMBICORT 160-4.5 MCG INHALER IH SCH ×2 (08:43→20:50)
[2017-11-19] MEDS: NON-FORMULARY MEDICATION (Tiotropium Bromide [Spiriva Respimat] 4 GM) IH SCH (08:44)
[2017-11-19] MEDS: LOVENOX SUBCUT SCH (08:46)
--- NOTE | 2017-11-19 10:37 | PCM.PROG ---
Attending Provider: ATTENDING PROVIDER: Dr. BRIANA TORRES This patient is seen with Raina Rodriges, Nurse Practitioner. DATE OF SERVICE: 11/19/17 SUBJECTIVE: This 82 year old WHITE/ M was hospitalized 11/17/17. Sitting on side of bed, alert. He states he didn't sleep well and doesn't feel good today. REVIEW OF SYSTEMS: CONSTITUTIONAL: Fatigue and weakness. No night sweats. No malaise, lethargy. No fever or chills. HEENT: Eyes: No visual changes. No eye pain. No eye discharge. ENT: No runny nose. No epistaxis. No sinus pain. No odynophagia. No congestion. RESPIRATORY: Cough. No congestion. No hemoptysis. No shortness of breath. CARDIOVASCULAR: No angina symptoms. No CHF symptoms. No atypical chest pain for CAD. No palpitations. No orthopnea.. GASTROINTESTINAL: No abdominal pain. No nausea or vomiting. No diarrhea or constipation. No hematemesis. No hematochezia. GENITOURINARY: No urgency. No frequency. No dysuria. No hematuria. No obstructive symptoms. No discharge. No pain. No significant abnormal bleeding. MUSCULOSKELETAL: No musculoskeletal pain; no joint swelling. NEUROLOGICAL: Awake, alert, oriented to time, place and person. No headache. No neck pain. No syncope. No seizures. No dizziness. PSYCHIATRIC: Anxious. No depression. No suicidal thoughts. No homicidal thoughts. SKIN: No rash. No lesions. No wounds. ENDOCRINE: No unexplained weight loss. No weight gain. HEMATOLOGIC/LYMPHATIC: No anemia. No purpura. No petechiae. No prolonged or excessive bleeding. No palpable lymph nodes. PHYSICAL EXAMINATION: GENERAL: The patient is awake, alert and oriented, sitting in bed in no distress. VITAL SIGNS: Temperature 97.1 F, Pulse 75, Respiratory Rate 16, BP 100/51, Pulse Ox 96% HEENT: Head normocephalic, atraumatic. Eyes: Extraocular muscles are intact. Pupils are equal, round and reactive to light and accommodation. Ears: No lesions. Nose appeared normal. Throat: No exudate or erythema. NECK: Supple. No JVD, no carotid bruit. No lymphadenopathy or thyromegaly. LUNGS: Diminished breath sounds bilaterally. Clear to auscultation. Percussion note normal. Chest symmetrical. HEART: S1, S2, no S3. No murmurs. No cyanosis or clubbing. No ascites. Pulses: Dorsalis pedis and posterior tibial pulses +1 to +2 both sides. ABDOMEN: Soft. Non-tender. Bowel sounds active. No CVA tenderness. No mass felt. EXTREMITIES: No edema. Full range of motion of all extremities, equal. NEUROLOGIC: No focal deficit. Cranial nerves II through XII are grossly intact. No headache, no double vision or headache. SKIN: Not dry. Intact. Turgor-normal. LYMPHATIC: No palpable lymph nodes/no lymphedema. MUSCULOSKELETAL: Normal joints with no swelling. Muscle tone is normal. LAB REVIEW: 11/18/17 04:20 11/18/17 04:20 11/19/17 03:29: Puncture Site Lb, O2 Saturation 83.0 L, ABG pH 7.422, ABG pCO2 50.9 H, ABG pO2 48.0 L*, ABG HCO3 33.2 H, ABG Total CO2 35 H, ABG Base Excess 9 H, Steven Test +, FiO2 % 21.0 11/18/17 08:53: Puncture Site Rr, O2 Saturation 97.0, ABG pH 7.429, ABG pCO2 48.3 H, ABG pO2 87.0, ABG HCO3 32.0 H, ABG Total CO2 33 H, ABG Base Excess 8 H, Steven Test +, O2 Delivery Device Nc, Oxygen Liter Flow 3.00, FiO2 % 32.0 ASSESSMENT: ACUTE BRONCHITIS SOB DEHYDRATION IMPROVING PLAN: CBC and CMP Steroids q.12 Stop IV fluids Xanax 0.25 a.m. and 0.5 mg at nighttime Continue Xopenex Plan and coordination of the patient's care discussed in the presence of Soaker Helper and nurse. CONDITION: Stable SCRIBED BY: RAUL MINAYA Autom[employer] Salesperson scribed while in presence of service performed by Dr. Torres/Raina Rodriges APRN on 11/19/17 ([id number])
[2017-11-19] MEDS: PHENERGAN WITH CODEINE 6.25/10 MG/5 ML PO PRN ×2 (12:51→20:45)
[2017-11-19] MEDS: XANAX PO SCH (20:44)
[2017-11-20] MEDS: XOPENEX 1.25 MG NEB SCH ×3 (05:32→16:45)
[2017-11-20] MEDS: DYAZIDE PO SCH (09:01)
[2017-11-20] MEDS: NORVASC PO SCH (09:02)
[2017-11-20] MEDS: ASPIRIN EC PO SCH (09:02)
[2017-11-20] MEDS: COZAAR PO SCH ×2 (09:02→20:57)
[2017-11-20] MEDS: PREDNISONE PO SCH (09:03)
[2017-11-20] MEDS: LEVAQUIN PO SCH (09:03)
[2017-11-20] MEDS: LOVENOX SUBCUT SCH (09:04)
[2017-11-20] MEDS: SYMBICORT 160-4.5 MCG INHALER IH SCH ×2 (09:09→20:57)
[2017-11-20] MEDS: NON-FORMULARY MEDICATION (Tiotropium Bromide [Spiriva Respimat] 4 GM) IH SCH (09:10)
--- NOTE | 2017-11-20 14:29 | US ---
EXAM: ULTRASOUND CAROTID DUPLEX, BILATERAL HISTORY: Confusion, history of vascular stenosis FINDINGS: Adams-scale ultrasound, color Doppler and spectral analysis was performed. Velocities are in meters per second. By adams scale and color Doppler imaging, there were regions of heterogeneous plaque formation identif ied within the carotid bulbs and internal carotid arteries. These regions of plaque appeared to appr oach 50% vessel diameter at some levels bilaterally. RIGHT: External carotid artery peak systolic velocity: 1.2/0.1 Common carotid artery peak systolic velocity/end diastolic velocity: 0.7/0.2 Internal carotid artery peak systolic velocity: 1.5 ICA/CCA peak systolic velocity ratio: 2.2 ICA end diastolic velocity: 0.4 LEFT: External carotid artery peak systolic velocity: 1.8/0.1 Common carotid artery peak systolic velocity/end diastolic velocity: 0.6/0.1 Internal carotid artery peak systolic velocity: 1.5 ICA/CCA peak systolic velocity ratio: 2.6 ICA end diastolic velocity: 0.3 The right and left vertebral arteries were antegrade. IMPRESSION: 1. By adams scale and color Doppler imaging, there were regions of heterogeneous plaque formation dante ntified within the carotid bulbs and internal carotid arteries. These regions of plaque appeared to approach 50% vessel diameter at some levels bilaterally. 2. Both the right and left internal carotid artery peak systolic velocities as well as both of the I CA/CCA peak systolic velocity ratios are consistent with moderate stenosis. Moderate indicates 50 - 69% vessel diameter. This correlates with the adams scale and color Doppler imaging findings. 3. Both vertebral arteries were antegrade.
--- NOTE | 2017-11-20 15:26 | PN ---
DATE OF SERVICE: 11/19/17 SUBJECTIVE: The patient was hospitalized with acute respiratory failure, the patient has chronic respiratory insufficiency. The patient's condition have improved with steroids, antibiotics and NEBS. PHYSICAL EXAMINATION: HEENT: Head normocephalic, atraumatic. Eyes: Extraocular muscles are intact. Pupils are equal, round and reactive to light and accommodation. Ears: No lesions. Nose appeared normal. Throat: No exudate or erythema. NECK: Supple. No JVD, no carotid bruit. No lymphadenopathy or thyromegaly. LUNGS: Decreased breath sounds. Clear to auscultation. Percussion note normal. Chest symmetrical. HEART: S1, S2, no S3. No murmurs. No cyanosis or clubbing. No ascites. Pulses: Dorsalis pedis and posterior tibial pulses +1 to +2 both sides. ABDOMEN: Soft. Nontender. Bowel sounds active. No CVA tenderness. No mass felt. EXTREMITIES: No edema. Full range of motion of all extremities, equal. NEUROLOGIC: No focal deficit. Cranial nerves II through XII are grossly intact. No headache, no double vision or headache. SKIN: Not dry. Intact. Turgor - normal. LYMPHATIC: No palpable lymph nodes/no lymphedema. MUSCULOSKELETAL: Normal joints with no swelling. Muscle tone is normal. CONDITION: Stabilizing The patient was seen and examined with Nurse Practitioner. TIME SPENT: More than 30 minutes. Plan and coordination of the patient's care discussed in the presence of nurse. ZAKIA
[2017-11-20] MEDS: XANAX PO SCH (20:57)
[2017-11-20] MEDS: PHENERGAN WITH CODEINE 6.25/10 MG/5 ML PO PRN (20:57)
[2017-11-21] MEDS: XOPENEX 1.25 MG NEB SCH ×5 (00:04→22:33)
[2017-11-21] MEDS: LEVAQUIN PO SCH (05:37)
[2017-11-21] MEDS ORDERED: SOLU-CORTEF 250 MG IVP STA (08:33)
[2017-11-21] MEDS ORDERED: LASIX IVP STA (08:33)
[2017-11-21] MEDS ORDERED: TORADOL IVP STA (08:34)
[2017-11-21] MEDS ORDERED: PULMICORT 0.5 MG/2 ML NEB STA (08:37)
[2017-11-21] MEDS ORDERED: MUCOMYST 20% NEB NEB STA (08:37)
[2017-11-21] MEDS ORDERED: DUONEB NEB PRN ×2 (08:50→22:23)
[2017-11-21] MEDS: SYMBICORT 160-4.5 MCG INHALER IH SCH ×2 (09:36→20:38)
[2017-11-21] MEDS: NON-FORMULARY MEDICATION (Tiotropium Bromide [Spiriva Respimat] 4 GM) IH SCH (09:36)
[2017-11-21] MEDS: ASPIRIN EC PO SCH (09:37)
[2017-11-21] MEDS: PREDNISONE PO SCH (09:37)
[2017-11-21] MEDS: NORVASC PO SCH (09:37)
[2017-11-21] MEDS: DYAZIDE PO SCH (09:37)
[2017-11-21] MEDS: COZAAR PO SCH ×2 (09:37→20:38)
[2017-11-21] MEDS: LOVENOX SUBCUT SCH (09:38)
--- NOTE | 2017-11-21 09:41 | PN ---
DATE OF SERVICE: 11/17/17 SUBJECTIVE: 82-year-old white male hospitalized with acute respiratory failure, p02 was 37, pc02 50 with normal pH. The patient was given nebs treatment, steroids. He has been given oxygen. The patient's p02 now is 60 with pc02 of 45 and oxygen saturation of 94%. I had seen the patient in the [facility] and son was present in the room. He says he is feeling a lot better. PHYSICAL EXAMINATION: VITAL SIGNS: Temperature 100.9, pulse 108, respiratory rate 28, BP 150/70, pulse ox 92%. HEENT: Head normocephalic, atraumatic. Eyes: Extraocular muscles are intact. Pupils are equal, round and reactive to light and accommodation. Ears: No lesions. Nose appeared normal. Throat: No exudate or erythema. NECK: Supple. No JVD, no carotid bruit. No lymphadenopathy or thyromegaly. LUNGS: Clear to auscultation. Percussion note normal. Chest symmetrical. HEART: S1, S2, no S3. No murmurs. No cyanosis or clubbing. No ascites. Pulses: Dorsalis pedis and posterior tibial pulses +1 to +2 both sides. ABDOMEN: Soft. Nontender. Bowel sounds active. No CVA tenderness. No mass felt. EXTREMITIES: No edema. Full range of motion of all extremities, equal. NEUROLOGIC: No focal deficit. Cranial nerves II through XII are grossly intact. No headache, no double vision or headache. SKIN: Not dry. Intact. Turgor - normal. LYMPHATIC: No palpable lymph nodes/no lymphedema. MUSCULOSKELETAL: Normal joints with no swelling. Muscle tone is normal. LABS: Hemoglobin 12.5, hematocrit 38, WBC 14,000, normal differential. Creatinine 0.9 , BUN 23. ASSESSMENT: 1. ACUTE PNEUMONITIS/BRONCHITIS WITH ACUTE RESPIRATORY FAILURE PLAN: 1. Give IV antibiotics, steroids, nebs treatment. 2. The patient is a full code. TIME SPENT: More than 30 minutes. Plan and coordination of the patient's care discussed in the presence of nurse. ZAKIA
--- NOTE | 2017-11-21 09:46 | PN ---
DATE OF SERVICE: 11/18/17 SUBJECTIVE: The patient was hospitalized with acute bronchitis, pneumonia and respiratory failure. The patient is doing alot better, feeling better, sitting up in the chair eating. REVIEW OF SYSTEMS: CONSTITUTIONAL: No night sweats. No fatigue, malaise, lethargy. No fever or chills. HEENT: Eyes: No visual changes. No eye pain. No eye discharge. ENT: No runny nose. No epistaxis. No sinus pain. No sore throat. No odynophagia. No congestion. RESPIRATORY: Mild cough. No congestion. No hemoptysis. No shortness of breath. CARDIOVASCULAR: No angina symptoms. No CHF symptoms. No atypical chest pain for CAD. No palpitations. No orthopnea. GASTROINTESTINAL: No abdominal pain. No nausea or vomiting. No diarrhea or constipation. No hematemesis. No hematochezia. GENITOURINARY: No urgency. No frequency. No dysuria. No hematuria. No obstructive symptoms. No discharge. No pain. No significant abnormal bleeding. MUSCULOSKELETAL: No musculoskeletal pain; no joint swelling. NEUROLOGICAL: No headache. No neck pain. No syncope. No seizures. No dizziness. PSYCHIATRIC: Not anxious. No depression. No suicidal thoughts. No homicidal thoughts. SKIN: No rash. No lesions. No wounds. ENDOCRINE: No unexplained weight loss. No weight gain. HEMATOLOGIC/LYMPHATIC: No anemia. No purpura. No petechiae. No prolonged or excessive bleeding. No palpable lymph nodes. PHYSICAL EXAMINATION: GENERAL: The patient is oriented to time, place and person. VITAL SIGNS: Temperature 98.3, pulse 83, respiratory rate 16, BP 110/55. Pulse ox 97%. HEENT: Head normocephalic, atraumatic. Eyes: Extraocular muscles are intact. Pupils are equal, round and reactive to light and accommodation. Ears: No lesions. Nose appeared normal. Throat: No exudate or erythema. NECK: Supple. No JVD, no carotid bruit. No lymphadenopathy or thyromegaly. LUNGS: Decreased breath sounds but clear to auscultation. Percussion note normal. Chest symmetrical. HEART: S1, S2, no S3. No murmurs. No cyanosis or clubbing. No ascites. Pulses: Dorsalis pedis and posterior tibial pulses +1 to +2 both sides. ABDOMEN: Soft. Nontender. Bowel sounds active. No CVA tenderness. No mass felt. EXTREMITIES: No edema. Full range of motion of all extremities, equal. NEUROLOGIC: No focal deficit. Cranial nerves II through XII are grossly intact. No headache, no double vision or headache. SKIN: Not dry. Intact. Turgor - normal. LYMPHATIC: No palpable lymph nodes/no lymphedema. MUSCULOSKELETAL: Normal joints with no swelling. Muscle tone is normal. LABS: Hemoglobin 11.2, hematocrit 34, WBC 18,000, normal different. Creatinine 0.8, BUN 23, potassium 4.2. Glucose 152, BNP 53. ASSESSMENT: 1. ACUTE RESPIRATORY FAILURE SEEMS TO BE RESOLVING. 2. CHRONIC RESPIRATORY FAILURE. 3. CHRONIC LUNG DISEASE. PLAN: 1. Continue steroids, antibiotics, nebs treatment. CONDITION: Stable. TIME SPENT: More than 30 minutes. Plan and coordination of the patient's care discussed in the presence of nurse. ZAKIA
[2017-11-21] MEDS ORDERED: XOPENEX 1.25 MG NEB SCH (10:00)
[2017-11-21] MEDS: MUCOMYST 20% NEB NEB SCH ×2 (11:15→22:33)
--- NOTE | 2017-11-21 13:13 | PCM.PROG ---
Attending Provider: ATTENDING PROVIDER: Dr. BRIANA TORRES DATE OF SERVICE: 11/21/17 SUBJECTIVE: This 82 year old WHITE/ M was hospitalized 11/17/17 with acute bronchitis with respiratory failure. He has evidence of chronic respiratory failure. The patient's congestion is worse than the past couple of days. REVIEW OF SYSTEMS: CONSTITUTIONAL: No night sweats. No fatigue, malaise, lethargy. No fever or chills. HEENT: Eyes: No visual changes. No eye pain. No eye discharge. ENT: No runny nose. No epistaxis. No sinus pain. No odynophagia. No congestion. RESPIRATORY: Cough and congestion. No hemoptysis. No shortness of breath. CARDIOVASCULAR: No angina symptoms. No CHF symptoms. No atypical chest pain for CAD. No palpitations. No PND. No orthopnea.. GASTROINTESTINAL: No abdominal pain. No nausea or vomiting. No diarrhea or constipation. No hematemesis. No hematochezia. GENITOURINARY: No urgency. No frequency. No dysuria. No hematuria. No obstructive symptoms. No discharge. No pain. No significant abnormal bleeding. MUSCULOSKELETAL: No musculoskeletal pain; no joint swelling. NEUROLOGICAL: Awake, alert, oriented to time, place and person. No headache. No neck pain. No syncope. No seizures. No dizziness. PSYCHIATRIC: Not anxious. No depression. No suicidal thoughts. No homicidal thoughts. SKIN: No rash. No lesions. No wounds. ENDOCRINE: No unexplained weight loss. No weight gain. HEMATOLOGIC/LYMPHATIC: No anemia. No purpura. No petechiae. No prolonged or excessive bleeding. No palpable lymph nodes. PHYSICAL EXAMINATION: GENERAL: The patient is awake, alert and oriented, lying in bed in no distress. VITAL SIGNS: Temperature 98.7 F, Pulse 82, Respiratory Rate 20, BP 141/74, Pulse Ox 96% HEENT: Head normocephalic, atraumatic. Eyes: Extraocular muscles are intact. Pupils are equal, round and reactive to light and accommodation. Ears: No lesions. Nose appeared normal. Throat: No exudate or erythema. NECK: Supple. No JVD, no carotid bruit. No lymphadenopathy or thyromegaly. LUNGS: Decreased breath sounds with good air entry. Congestion is in the upper part of the chest. Clear to auscultation. Percussion note normal. Chest symmetrical. HEART: S1, S2, no S3. No murmurs. No cyanosis or clubbing. No ascites. Pulses: Dorsalis pedis and posterior tibial pulses +1 to +2 both sides. ABDOMEN: Soft. Non-tender. Bowel sounds active. No CVA tenderness. No mass felt. EXTREMITIES: No edema. Full range of motion of all extremities, equal. NEUROLOGIC: No focal deficit. Cranial nerves II through XII are grossly intact. No headache, no double vision or headache. SKIN: Warm and dry. Intact. Turgor-normal. LYMPHATIC: No palpable lymph nodes/no lymphedema. MUSCULOSKELETAL: Normal joints with no swelling. Muscle tone is normal. LAB REVIEW: 11/21/17 04:50 11/21/17 04:50 11/21/17 04:50: Sodium 139, Potassium 4.3, Chloride 98, Carbon Dioxide 34 H, Anion Gap 11.3, BUN 30 H, Creatinine 0.86, Estimated GFR (MDRD) 85.00, BUN/ Creatinine Ratio 34.88, Glucose 113 D, Calcium 10.4 H, Total Bilirubin 0.3, AST 14 L, ALT 13, Alkaline Phosphatase 45 L, Total Protein 5.7 L, Albumin 2.4 L , Globulin 3.3, Albumin/Globulin Ratio 0.73 11/21/17 04:50: WBC 16.29 H, RBC 3.73 L, Hgb 11.5 L, Hct 36.2 L, MCV 97.1 H, MCH 30.8, MCHC 31.8, RDW Coeff of Amber 13.5, Plt Count 246, Immature Gran % (Auto ) 2.2, Neut % (Auto) 78.0, Lymph % (Auto) 7.8 L, Mclean % (Auto) 11.8 H, Eos % ( Auto) 0.0, Baso % (Auto) 0.2, Immature Gran # (Auto) 0.4, Neut # (Auto) 12.7 H, Lymph # (Auto) 1.3, Mclean # (Auto) 1.9, Eos # (Auto) 0.0, Baso # (Auto) 0.0 ASSESSMENT: 1. CHRONIC RESPIRATORY FAILURE WITH ACUTE BRONCHITIS PLAN: 1. Toradol 30 mg IV 2. Pulmicort nebs b.i.d. add to breathing treatment with Mucomyst 3. Solucortef 250 mg IV, one dose with existing steroid supplements 4. Xopenex q.6hr 5. Echo to evaluate LV function 6. Repeat BNP 7. Will speak to family advising that patient should not drive. Plan and coordination of the patient's care discussed in the presence of Analysis Intern and nurse. CONDITION: Stable SCRIBED BY: RAUL MINAYA Lawyer Probate scribed while in presence of service performed by Dr. BRIANA TORRES on 11/21/17 ([id number])
--- NOTE | 2017-11-21 13:22 | PCM.PROG ---
Attending Provider: ATTENDING PROVIDER: Dr. BRIANA TORRES This patient is seen with Raina Rodriges, Nurse Practitioner. DATE OF SERVICE: 11/20/17 SUBJECTIVE: This 82 year old WHITE/ M was hospitalized 11/17/17. Lying in bed, resting comfortably. Will try to wean 02 today. He usually has 1L of 02 at home. REVIEW OF SYSTEMS: CONSTITUTIONAL: Weakness. No night sweats. No malaise, lethargy. No fever or chills. HEENT: Eyes: No visual changes. No eye pain. No eye discharge. ENT: No runny nose. No epistaxis. No sinus pain. No odynophagia. No congestion. RESPIRATORY: Cough and congestion. No hemoptysis. No shortness of breath. CARDIOVASCULAR: No angina symptoms. No CHF symptoms. No atypical chest pain for CAD. No palpitations. No orthopnea.. GASTROINTESTINAL: No abdominal pain. No nausea or vomiting. No diarrhea or constipation. No hematemesis. No hematochezia. GENITOURINARY: No urgency. No frequency. No dysuria. No hematuria. No obstructive symptoms. No discharge. No pain. No significant abnormal bleeding. MUSCULOSKELETAL: No musculoskeletal pain; no joint swelling. NEUROLOGICAL: Awake, alert, oriented to time, place and person. No headache. No neck pain. No syncope. No seizures. No dizziness. PSYCHIATRIC: Not anxious. No depression. No suicidal thoughts. No homicidal thoughts. SKIN: No rash. No lesions. No wounds. ENDOCRINE: No unexplained weight loss. No weight gain. HEMATOLOGIC/LYMPHATIC: No anemia. No purpura. No petechiae. No prolonged or excessive bleeding. No palpable lymph nodes. PHYSICAL EXAMINATION: GENERAL: The patient is awake, alert and oriented, lying/sitting in bed in no distress. VITAL SIGNS: Temperature 97.5 F, Pulse 72, Respiratory Rate 18, BP 104/49, Pulse Ox 95% HEENT: Head normocephalic, atraumatic. Eyes: Extraocular muscles are intact. Pupils are equal, round and reactive to light and accommodation. Ears: No lesions. Nose appeared normal. Throat: No exudate or erythema. NECK: Supple. No JVD, no carotid bruit. No lymphadenopathy or thyromegaly. LUNGS: Diminished breath sounds bilaterally. Clear to auscultation. Percussion note normal. Chest symmetrical. HEART: S1, S2, no S3. No murmurs. No cyanosis or clubbing. No ascites. Pulses: Dorsalis pedis and posterior tibial pulses +1 to +2 both sides. ABDOMEN: Soft. Non-tender. Bowel sounds active. No CVA tenderness. No mass felt. EXTREMITIES: No edema. Full range of motion of all extremities, equal. NEUROLOGIC: No focal deficit. Cranial nerves II through XII are grossly intact. No headache, no double vision or headache. SKIN: Not dry. Intact. Turgor-normal. LYMPHATIC: No palpable lymph nodes/no lymphedema. MUSCULOSKELETAL: Normal joints with no swelling. Muscle tone is normal. LAB REVIEW: 11/20/17 05:10 11/20/17 05:10 11/20/17 05:10: Sodium 138, Potassium 4.3, Chloride 99, Carbon Dioxide 34 H, Anion Gap 9.3, BUN 35 H, Creatinine 0.96, Estimated GFR (MDRD) 75.00, BUN/ Creatinine Ratio 36.45, Glucose 164 H, Calcium 10.1, Total Bilirubin < 0.3, AST 13 L, ALT 13, Alkaline Phosphatase 46 L, Total Protein 5.9, Albumin 2.6 L, Globulin 3.3, Albumin/Globulin Ratio 0.79 11/20/17 05:10: WBC 15.59 H D, RBC 3.60 L, Hgb 11.2 L, Hct 34.8 L, MCV 96.7 H, MCH 31.1 H, MCHC 32.2, RDW Coeff of Amber 13.4, Plt Count 239, Immature Gran % ( Auto) 2.0, Neut % (Auto) 87.9, Lymph % (Auto) 3.6 L, Vinton % (Auto) 6.3, Eos % ( Auto) 0.0, Baso % (Auto) 0.2, Immature Gran # (Auto) 0.3, Neut # 13.7 H, Lymph # 0.6, Vinton # 1.0, Eos # 0.0, Baso # 0.0 11/19/17 08:30: Sodium 138, Potassium 3.8, Chloride 99, Carbon Dioxide 31, Anion Gap 11.8, BUN 26 H, Creatinine 0.87, Estimated GFR (MDRD) 84.00, BUN/ Creatinine Ratio 29.88, Glucose 162 H, Calcium 10.6 H, Total Bilirubin 0.3, AST 16, ALT 14, Alkaline Phosphatase 54 L, Total Protein 6.6, Albumin 3.1 L, Globulin 3.5, Albumin/Globulin Ratio 0.89 11/19/17 08:30: WBC 22.82 H, RBC 3.89 L, Hgb 12.1 L, Hct 36.8 L, MCV 94.6 H, MCH 31.1 H, MCHC 32.9, RDW Coeff of Amber 13.6, Plt Count 289 D, Immature Gran % (Auto) 1.1, Neut % (Auto) 90.5, Lymph % (Auto) 2.0 L, V[place] % (Auto) 6.3, Eos % ( Auto) 0.0, Baso % (Auto) 0.1, Immature Gran # (Auto) 0.3, Neut # 20.6 H, Lymph # 0.5 L, Vinton # 1.4, Eos # 0.0, Baso # 0.0 ASSESSMENT: 1. ACUTE BRONCHITIS 2. SOB, IMPROVED 3. DEHYDRATION IMPROVING PLAN: 1. D/C Solu-Cortef 2. Start oral Levaquin 500 mg daily 3. PFT if not done recently 4. Try and wean oxygen 5. Prednisone 20 mg daily Plan and coordination of the patient's care discussed in the presence of Physical Therapy Assistant Instructor and nurse. CONDITION: Stable SCRIBED BY: RAUL MINAYA Quality Review Specialist scribed while in presence of service performed by Dr. Torres/Raina Rodriges APRN on 11/20/17 ([id number])
--- NOTE | 2017-11-21 14:24 | HP ---
DATE OF SERVICE: 11/17/17 HISTORY OF PRESENT ILLNESS: This is an 82-year-old male who presented to the emergency room with coughing and shortness of breath. He stated that he had been having to use more oxygen. He had been on oral Keflex and Prednisone and has had a cough for several days with no improvement. PAST MEDICAL HISTORY: COPD Previous smoker Hypertension Anxiety Dementia PAST SURGICAL HISTORY: None pertinent. REVIEW OF SYSTEMS: CONSTITUTIONAL: Fatigue. No night sweats. No malaise, lethargy. No fever or chills. HEENT: Eyes: No visual changes. No eye pain. No eye discharge. ENT: No runny nose. No epistaxis. No sinus pain. No sore throat. No odynophagia. No ear pain. No congestion. RESPIRATORY: Cough and wheezing. No hemoptysis. Positive for shortness of breath. CARDIOVASCULAR: No angina symptoms. No CHF symptoms. No atypical chest pain for CAD. No palpitations. No orthopnea. GASTROINTESTINAL: No abdominal pain. No nausea or vomiting. No diarrhea or constipation. No hematemesis. No hematochezia. GENITOURINARY: No urgency. No frequency. No dysuria. No hematuria. No obstructive symptoms. No discharge. No pain. No significant abnormal bleeding. MUSCULOSKELETAL: No musculoskeletal pain. No joint swelling. No arthritis. NEUROLOGICAL: No headache. No neck pain. No syncope. No seizures. No dizziness. PSYCHIATRIC: Not anxious. No depression. No suicidal thoughts. No homicidal thoughts. SKIN: No rash. No lesions. No wounds. ENDOCRINE: No unexplained weight loss. No weight gain. HEMATOLOGIC/LYMPHATIC: No anemia. No purpura. No petechiae. No prolonged or excessive bleeding. No palpable lymph nodes. PERSONAL/FAMILY/SOCIAL HISTORY: He is a former smoker. He has three children. He currently resides at home by himself. No alcohol or ilicit drug use. MEDICATIONS: (Home) Aspirin 81 mg p.o. daily Proventil HFA 2 gm IH t.i.d. p.r.n. Cozaar 50 mg p.o. b.i.d. Norvasc 5 mg p.o. daily Symbicort 160-4.5 mcg one puff IH b.i.d. Xanax 0.25 mg p.o. bedtime Duoneb q.8hr Spiriva Respimat 4 gm IH daily Lipitor one tab p.o. daily Meclizine 25 mg one tab p.o. b.i.d. Triamterene-HCTZ 37.5-25 mg one tab p.o. daily Keflex 500 mg p.o. t.i.d. Prednisone 20 mg p.o. b.i.d. ALLERGIES: NKDA PHYSICAL EXAMINATION: VITAL SIGNS: Temperature 99.5, heart rate 122, respirations 26, BP 156/73, pulse ox 71% in the ER. GENERAL: Pale. Mild respiratory distress. HEENT: Head normocephalic, atraumatic. Eyes: Extraocular muscles are intact. Pupils are equal, round and reactive to light and accommodation. Ears: No lesions. Nose appeared normal. Throat: No exudate or erythema. NECK: Supple. No JVD, no carotid bruit. No lymphadenopathy or thyromegaly. LUNGS: Diminished breath sounds bilaterally with bilateral wheezing. Percussion note normal. Chest symmetrical. HEART: S1, S2, no S3. No murmurs. Normal heart sounds. No cyanosis or clubbing. No ascites. Pulses: Dorsalis pedis and posterior tibial pulses +1 to +2 both sides. ABDOMEN: Soft. Nontender. Bowel sounds active. No CVA tenderness. No mass felt. EXTREMITIES: No leg edema. Full range of motion of all extremities, equal. NEUROLOGIC: No focal deficit. Cranial nerves II through XII are grossly intact. No headache, no double vision or headache. SKIN: Not dry. Intact. Turgor - normal. LYMPHATIC: No palpable lymph nodes/no lymphedema. MUSCULOSKELETAL: Normal joints with no swelling. Muscle tone is normal. LAB VALUES: Hemoglobin 12.5, hematocrit 38.6, white count 14.81. Sodium 139, potassium 4.0, BUN 23, creatinine 0.91, glucose 120. ABGs on room air: 02 sat 71, pH 7.4, pc02 50.3, p02 37, bicarb 32.7, total c02 34, base excess of 8, BNP 53. Rapid flu A & B were both negative. Chest x-ray revealed right lower lobe pneumonia, COPD with exacerbation. ASSESSMENT: 1. RIGHT LOWER LOBE PNEUMONIA 2. COPD WITH EXACERBATION 3. RESPIRATORY DISTRESS 4. SHORTNESS OF BREATH 5. DEHYDRATION PLAN: 1. Admit to Special Care Unit 2. Routine telemetry orders 3. CBC, CMP daily 4. Repeat ABGs STAT on 3L 5. Rocephin 1 gm IV daily 6. Solu-Cortef 125 mg IV q.8hr 7. Xanax 0.25 mg b.i.d. as needed for anxiety 8. IV fluids NS at 50 cc/hr 9. Continue home medications 10. Xopenex neb treatments q.6hr 11. Continue home medications 12. Regular diet 13. Venti mask if needed TIME SPENT: More than 70 minutes. MTDD
[2017-11-21] MEDS: PULMICORT 0.5 MG/2 ML NEB SCH (17:50)
[2017-11-21] MEDS: XANAX PO SCH (20:38)
[2017-11-21] MEDS: PHENERGAN WITH CODEINE 6.25/10 MG/5 ML PO PRN (20:38)
[2017-11-22] MEDS: PULMICORT 0.5 MG/2 ML NEB SCH ×2 (04:38→17:12)
[2017-11-22] MEDS: XOPENEX 1.25 MG NEB SCH ×4 (04:38→23:48)
[2017-11-22] MEDS: LEVAQUIN PO SCH (05:29)
[2017-11-22] MEDS: PHENERGAN WITH CODEINE 6.25/10 MG/5 ML PO PRN (05:31)
[2017-11-22] MEDS: ASPIRIN EC PO SCH (09:44)
[2017-11-22] MEDS: DYAZIDE PO SCH (09:44)
[2017-11-22] MEDS: PREDNISONE PO SCH (09:44)
[2017-11-22] MEDS: COZAAR PO SCH ×2 (09:44→20:40)
[2017-11-22] MEDS: LOVENOX SUBCUT SCH (09:45)
[2017-11-22] MEDS: NON-FORMULARY MEDICATION (Tiotropium Bromide [Spiriva Respimat] 4 GM) IH SCH (09:45)
[2017-11-22] MEDS: NORVASC PO SCH (09:45)
[2017-11-22] MEDS: MUCINEX PO SCH ×2 (09:45→20:40)
[2017-11-22] MEDS: SYMBICORT 160-4.5 MCG INHALER IH SCH ×2 (09:45→20:40)
[2017-11-22] MEDS: MUCOMYST 20% NEB NEB SCH ×2 (11:10→23:48)
--- NOTE | 2017-11-22 12:30 | DI ---
Exam: Two x-rays of the chest. Comparison: 11/17/2017. Reason for exam: Cough and shortness of breath. FINDINGS: Patchy airspace opacities are seen throughout the right hemithorax. There is blunting of both costophrenic angles with a right-sided pleural effusion. The cardiac silhouette is not enlarged . The imaged osseous structures appear grossly unremarkable without acute fracture. No pneumothorax . Impression: Imaging findings are most consistent with a right-sided pneumonia and a small pleural effusion.
--- NOTE | 2017-11-22 12:48 | PCM.PROG ---
Attending Provider: ATTENDING PROVIDER: Dr. BRIANA TORRES DATE OF SERVICE: 11/22/17 SUBJECTIVE: This 82 year old WHITE/ M was hospitalized 11/17/17 with acute respiratory failure. The patient is less congested than yesterday. He is still shaky which could be from all the bronchodilators he gets. The patient is oriented to time, place and person. REVIEW OF SYSTEMS: CONSTITUTIONAL: No night sweats. No fatigue, malaise, lethargy. No fever or chills. HEENT: Eyes: No visual changes. No eye pain. No eye discharge. ENT: No runny nose. No epistaxis. No sinus pain. No odynophagia. No congestion. RESPIRATORY: Positive for cough, no congestion. No hemoptysis. Positive for hortness of breath on exertion as usual. CARDIOVASCULAR: No angina symptoms. No CHF symptoms. No atypical chest pain for CAD. No palpitations. No PND. No orthopnea.. GASTROINTESTINAL: Appetite is acceptable. No abdominal pain. No nausea or vomiting. No diarrhea or constipation. No hematemesis. No hematochezia. GENITOURINARY: No urgency. No frequency. No dysuria. No hematuria. No obstructive symptoms. No discharge. No pain. No significant abnormal bleeding. MUSCULOSKELETAL: No musculoskeletal pain; no joint swelling. NEUROLOGICAL: Awake, alert, oriented to time, place and person. Shaky. No headache. No neck pain. No syncope. No seizures. No dizziness. PSYCHIATRIC: Not anxious. No depression. No suicidal thoughts. No homicidal thoughts. SKIN: No rash. No lesions. No wounds. ENDOCRINE: No unexplained weight loss. No weight gain. HEMATOLOGIC/LYMPHATIC: No anemia. No purpura. No petechiae. No prolonged or excessive bleeding. No palpable lymph nodes. PHYSICAL EXAMINATION: GENERAL: The patient is awake, alert and oriented, sitting in bed in no distress. VITAL SIGNS: Temperature 98.1 F, Pulse 88, Respiratory Rate 18, BP 100/48, Pulse Ox 92% HEENT: Head normocephalic, atraumatic. Eyes: Extraocular muscles are intact. Pupils are equal, round and reactive to light and accommodation. Ears: No lesions. Nose appeared normal. Throat: No exudate or erythema. NECK: Supple. No JVD, no carotid bruit. No lymphadenopathy or thyromegaly. LUNGS: Decreased breath sounds. Clear to auscultation. Percussion note normal. Chest symmetrical. HEART: S1, S2, no S3. No murmurs. No cyanosis or clubbing. No ascites. Pulses: Dorsalis pedis and posterior tibial pulses +1 to +2 both sides. ABDOMEN: Soft. Non-tender. Bowel sounds active. No CVA tenderness. No mass felt. EXTREMITIES: No edema. Full range of motion of all extremities, equal. NEUROLOGIC: No focal deficit. Cranial nerves II through XII are grossly intact. No headache, no double vision or headache. SKIN: Warm and dry. Intact. Turgor-normal. LYMPHATIC: No palpable lymph nodes/no lymphedema. MUSCULOSKELETAL: Normal joints with no swelling. Muscle tone is normal. LAB REVIEW: 11/21/17 04:50 11/21/17 04:50 11/21/17 04:30: B-Natriuretic Peptide 36 ASSESSMENT: 1. ACUTE RESPIRATORY FAILURE WITH ACUTE BRONCHITIS AND SEVERE CHRONIC LUNG DISEASE. PLAN: 1. ABG on room air 2. Chest x-ray 3. D/C Phenergan with Codeine 4. Decrease Xanax to 0.25 mg 5. GG Expectorant (Guiafenensin) Plan and coordination of the patient's care discussed in the presence of Dial Mounter and nurse. CONDITION: Stable SCRIBED BY: RAUL MINAYA Diagnostics Sales Developer scribed while in presence of service performed by Dr. BRIANA TORRES on 11/22/17 ([id number])
[2017-11-22] MEDS: TESSALON PERLES PO PRN ×2 (16:51→20:39)
[2017-11-22] MEDS: XANAX PO SCH (20:40)
[2017-11-23] MEDS: PULMICORT 0.5 MG/2 ML NEB SCH ×2 (04:33→16:45)
[2017-11-23] MEDS: XOPENEX 1.25 MG NEB SCH ×3 (04:33→16:45)
[2017-11-23] MEDS: LEVAQUIN PO SCH (05:57)
[2017-11-23] MEDS ORDERED: MIRALAX PO STA (08:27)
[2017-11-23] MEDS: SYMBICORT 160-4.5 MCG INHALER IH SCH ×2 (09:38→21:04)
[2017-11-23] MEDS: MUCINEX PO SCH ×2 (09:39→21:03)
[2017-11-23] MEDS: NORVASC PO SCH (09:39)
[2017-11-23] MEDS: PREDNISONE PO SCH (09:39)
[2017-11-23] MEDS: COZAAR PO SCH (09:39)
[2017-11-23] MEDS: ASPIRIN EC PO SCH (09:40)
[2017-11-23] MEDS: NON-FORMULARY MEDICATION (Tiotropium Bromide [Spiriva Respimat] 4 GM) IH SCH (09:40)
[2017-11-23] MEDS: LOVENOX SUBCUT SCH (09:40)
[2017-11-23] MEDS: DYAZIDE PO SCH (09:40)
--- NOTE | 2017-11-23 10:26 | PN ---
DATE OF SERVICE: 11/20/17 SUBJECTIVE: The patient was hospitalized with acute respiratory failure. The patient has chronic respiratory insufficiency and failure. The patient is being treated with steroids, nebs treatment and antibiotics. The patient's condition is improving. He is gaining some strength back. On room air, the patient's p02 was 49 with pc02 of 50 with normal pH with 84% saturation, seems to be good for him. The patient was seen and examined with the nurse practitioner. The patient was explained about steroids and their side effects like avascular necrosis of the femoral head, cataracts, osteoporosis. The patient's COPD is dependent on steroids. When the steroids are taken off his condition worsens. The patient is advised not to go without oxygen. TIME SPENT: More than 30 minutes. Plan and coordination of the patient's care discussed in the presence of nurse. ZAKIA
[2017-11-23] MEDS: MUCOMYST 20% NEB NEB SCH (11:15)
--- NOTE | 2017-11-23 12:55 | PCM.PROG ---
Attending Provider: ATTENDING PROVIDER: Dr. BRIANA TORRES This patient is seen with Raina Rodriges, Nurse Practitioner. DATE OF SERVICE: 11/23/17 SUBJECTIVE: This 82 year old WHITE/ M was hospitalized 11/17/17. Sitting on the side of bed. He states he has no energy. He hasn't had a bowel movement since 11/19. Tired and worried about going home. REVIEW OF SYSTEMS: CONSTITUTIONAL: Weakness and fatigue. No night sweats. No malaise, lethargy. No fever or chills. HEENT: Eyes: No visual changes. No eye pain. No eye discharge. ENT: No runny nose. No epistaxis. No sinus pain. No odynophagia. No congestion. RESPIRATORY: Cough. No congestion. No hemoptysis. No shortness of breath. CARDIOVASCULAR: No angina symptoms. No CHF symptoms. No atypical chest pain for CAD. No palpitations. No orthopnea.. GASTROINTESTINAL: No abdominal pain. No nausea or vomiting. No diarrhea or constipation. No hematemesis. No hematochezia. GENITOURINARY: No urgency. No frequency. No dysuria. No hematuria. No obstructive symptoms. No discharge. No pain. No significant abnormal bleeding. MUSCULOSKELETAL: No musculoskeletal pain; no joint swelling. NEUROLOGICAL: Awake, alert, oriented to time, place and person. No headache. No neck pain. No syncope. No seizures. No dizziness. PSYCHIATRIC: Not anxious. No depression. No suicidal thoughts. No homicidal thoughts. SKIN: No rash. No lesions. No wounds. ENDOCRINE: No unexplained weight loss. No weight gain. HEMATOLOGIC/LYMPHATIC: No anemia. No purpura. No petechiae. No prolonged or excessive bleeding. No palpable lymph nodes. PHYSICAL EXAMINATION: GENERAL: The patient is awake, alert and oriented, sitting in bed in no distress. VITAL SIGNS: Temperature 98.5 F, Pulse 80, Respiratory Rate 24, BP 107/51, Pulse Ox 94% HEENT: Head normocephalic, atraumatic. Eyes: Extraocular muscles are intact. Pupils are equal, round and reactive to light and accommodation. Ears: No lesions. Nose appeared normal. Throat: No exudate or erythema. NECK: Supple. No JVD, no carotid bruit. No lymphadenopathy or thyromegaly. LUNGS: Diminished breath sounds bilaterally. Clear to auscultation. Percussion note normal. Chest symmetrical. HEART: S1, S2, no S3. No murmurs. No cyanosis or clubbing. No ascites. Pulses: Dorsalis pedis and posterior tibial pulses +1 to +2 both sides. ABDOMEN: Soft. Non-tender. Bowel sounds active. No CVA tenderness. No mass felt. EXTREMITIES: No edema. Full range of motion of all extremities, equal. NEUROLOGIC: No focal deficit. Cranial nerves II through XII are grossly intact. No headache, no double vision or headache. SKIN: Not dry. Intact. Turgor-normal. LYMPHATIC: No palpable lymph nodes/no lymphedema. MUSCULOSKELETAL: Normal joints with no swelling. Muscle tone is normal. LAB REVIEW: 11/21/17 04:50 11/21/17 04:50 11/22/17 09:00: Puncture Site Rr, O2 Saturation 79.0 L, ABG pH 7.513 H*, ABG pCO2 48.1 H, ABG pO2 39.0 L*, ABG HCO3 38.6 H, ABG Total CO2 40 H, ABG Base Excess 16 H, Steven Test +, FiO2 % 21.0 ASSESSMENT: 1. ACUTE RESPIRATORY FAILURE WITH ACUTE BRONCHITIS AND SEVERE CHRONIC LUNG DISEASE. 2. GENERALIZED WEAKNESS. 3. CONSTIPATION PLAN: 1. CBC, CMP 2. Miralax one capful times one dose Plan and coordination of the patient's care discussed in the presence of Ip Attorney and nurse. CONDITION: Stable SCRIBED BY: RAUL MINYAA Children'S Service Supervisor scribed while in presence of service performed by Dr. Torres/Raina Rodriges APRN on 11/23/17 ([id number])
[2017-11-23] MEDS: SODIUM CHLORIDE 1,000 ML IV SCH (13:29)
[2017-11-23] MEDS ORDERED: CARDIZEM PO SCH (21:00)
[2017-11-23] MEDS: TESSALON PERLES PO PRN (21:06)
[2017-11-23] MEDS: XANAX PO SCH (21:52)
[2017-11-24] MEDS: XOPENEX 1.25 MG NEB SCH ×3 (00:05→11:15)
[2017-11-24] MEDS: MUCOMYST 20% NEB NEB SCH ×2 (00:05→11:16)
[2017-11-24] MEDS: SODIUM CHLORIDE 1,000 ML IV SCH (02:13)
[2017-11-24] MEDS: PULMICORT 0.5 MG/2 ML NEB SCH (05:00)
[2017-11-24] MEDS: LEVAQUIN PO SCH (06:27)
[2017-11-24] MEDS ORDERED: NON-FORMULARY MEDICATION (Tiotropium Bromide [Spiriva Respimat] 4 GM) IH SCH (09:00)
[2017-11-24] MEDS ORDERED: CARDIZEM PO SCH (09:00)
[2017-11-24] MEDS ORDERED: COZAAR PO SCH (09:00)
[2017-11-24] MEDS: SYMBICORT 160-4.5 MCG INHALER IH SCH (09:33)
[2017-11-24] MEDS: MUCINEX PO SCH (09:34)
[2017-11-24] MEDS: PREDNISONE PO SCH (09:34)
[2017-11-24] MEDS: DYAZIDE PO SCH (09:34)
[2017-11-24] MEDS: ASPIRIN EC PO SCH (09:34)
[2017-11-24] MEDS: LOVENOX SUBCUT SCH (09:35)
[2017-11-24 11:00] VITALS: BP 113/59; TEMP 97.5
[2017-11-24] MEDS ORDERED: DULCOLAX PO SCH (21:00)
--- NOTE | 2017-11-26 13:20 | ECHO2D ---
Date of Exam: 11/26/17 Ordering Physician: DR. BRIANA TORRES Room #: SCU 2 Reason for Echo: SOB, RESPIRATORY FAILURE M-Mode Normal Adult Results LV Dimensions Normal Adult Results AoV Opening excursions >1.6 1.3 LVEDD-base- 3.5-5.8 4.6 Ao root dimensions 2.0-3.7 3.5 LVESD-base- 3.1-4.6 L. Atrium dimensions 1.9-3.8 3.8 Post. Wall thickness 0.8-1.1 1.0 IV septum (thickness) 0.7-1.2 1.0 Post. Wall excursion 0.72-1.3 NORMAL Septal motion NORMAL Systolic motion R. Ventricular cavity 1.5-2.0 3.0 LVEF 60% 80% Paradoxical septal wall motion NORMAL 2-D : CALCIFIC AORTIC STENOSIS--MILD, NORMAL LEFT VENTRICULAR CONTRACTILITY-- NO EFFUSION, NO THROMBUS, NORMAL VALVES, NORMAL LEFT VENTRICLE AND LEFT ATRIAL SIZE, ENLARGED RIGHT VENTRICLE SIZE M-MODE: MV: NORMAL AV: CALCIFIC AORTIC VALVES WITH MILD AORTIC STENOSIS TV: NORMAL PV: NORMAL CHAMBER SIZE: ENLARGED RIGHT VENTRICLE CAVITY WALL MOTION: NORMAL PERICARDIUM: NORMAL INTERPRETATION: 1. ENLARGED RIGHT VENTRICLE CAVITY 2. DARIANA LEFT VENTRICULAR CONTRACTILITY 3. MILD CALCIFIC AORTIC STENOSIS MTDD
--- NOTE | 2017-12-03 13:45 | PN ---
DATE OF SERVICE: 11/23/17 SUBJECTIVE: 82-year-old white male hospitalized with pneumonia and acute bronchitis. The patient has severe chronic lung disease. The patient's condition has steadily improved. He is feeling a lot better. The chest x-ray done yesterday showed still some infiltrate in the right lower lobe but mainly clinically the patient is afebrile for the past 3 to 4 days. Oxygen saturation running in the range of 92 to 96 on 2L. Appetite has improved. His congestion and wheezing is much less. He is coughing up clear sputum. His appetite has improved. He wants to go home. He says he may walk out. The daughter was also explained about all of his medical problems because her expectations seems to be somewhat higher. The son understands the medical conditions of his father. The patient's COPD is end- stage. The patient's COPD is Prednisone dependent. The side effects of Prednisone discussed including osteoporosis, cataracts and avascular necrosis of the femoral heads. His condition is improving. The patient was seen and examined with the nurse practitioner. TIME SPENT: More than 30 minutes. Plan and coordination of the patient's care discussed in the presence of nurse. ZAKIA
--- NOTE | 2017-12-03 13:53 | PN ---
DATE OF SERVICE: 11/24/17 SUBJECTIVE: 82-year-old white male hospitalized with acute bronchitis and pneumonia. The patient's condition has improved remarkably. He is feeling a lot better. As usual he is sitting up at the bedside and talking without stopping. The son is present in the room. The patient says he has not been wheezing like he was two days ago. He wants to go home. REVIEW OF SYSTEMS: CONSTITUTIONAL: No night sweats. No fatigue, malaise, lethargy. No fever or chills. HEENT: Eyes: No visual changes. No eye pain. No eye discharge. ENT: No runny nose. No epistaxis. No sinus pain. No sore throat. No odynophagia. No congestion. RESPIRATORY: No cough, no congestion. No hemoptysis. No shortness of breath. CARDIOVASCULAR: No angina symptoms. No CHF symptoms. No atypical chest pain for CAD. No palpitations. No orthopnea. GASTROINTESTINAL: Good appetite. No abdominal pain. No nausea or vomiting. No diarrhea or constipation. No hematemesis. No hematochezia. GENITOURINARY: No urgency. No frequency. No dysuria. No hematuria. No obstructive symptoms. No discharge. No pain. No significant abnormal bleeding. MUSCULOSKELETAL: No musculoskeletal pain; no joint swelling. NEUROLOGICAL: No headache. No neck pain. No syncope. No seizures. No dizziness. PSYCHIATRIC: Not anxious. No depression. No suicidal thoughts. No homicidal thoughts. SKIN: No rash. No lesions. No wounds. ENDOCRINE: No unexplained weight loss. No weight gain. HEMATOLOGIC/LYMPHATIC: No anemia. No purpura. No petechiae. No prolonged or excessive bleeding. No palpable lymph nodes. PHYSICAL EXAMINATION: VITAL SIGNS: Temperature 98, pulse 78, respiratory rate 19, BP 118/53, pulse ox 93%. HEENT: Head normocephalic, atraumatic. Eyes: Extraocular muscles are intact. Pupils are equal, round and reactive to light and accommodation. Ears: No lesions. Nose appeared normal. Throat: No exudate or erythema. NECK: Supple. No JVD, no carotid bruit. No lymphadenopathy or thyromegaly. LUNGS: Decreased breath sounds but good air entry. Percussion note normal. Chest symmetrical. HEART: S1, S2, no S3. No murmurs. No cyanosis or clubbing. No ascites. Pulses: Dorsalis pedis and posterior tibial pulses +1 to +2 both sides. ABDOMEN: Soft. Nontender. Bowel sounds active. No CVA tenderness. No mass felt. EXTREMITIES: No edema. Full range of motion of all extremities, equal. NEUROLOGIC: No focal deficit. Cranial nerves II through XII are grossly intact. No headache, no double vision or headache. SKIN: Not dry. Intact. Turgor - normal. LYMPHATIC: No palpable lymph nodes/no lymphedema. MUSCULOSKELETAL: Normal joints with no swelling. Muscle tone is normal. LABS: The patient's echocardiogram showed normal LV contractility with enlarged RV cavity. It was done yesterday. ASSESSMENT: 1. Pneumonia, clinically seems to be resolving with improvement in the hypoxemia and lung functions. 2. The patient's other medical conditions are stable. PLAN: 1. We will switch the medications around and he will be off Cozaar and will start him on Hyzaar 50/12.5 mg p.o. daily. 2. The patient is going to be off Norvasc and will use Cardizem 60 mg twice a day. 3. The patient will be off Dyazide. 4. The rest of the medications and nebs treatment to be continued. 5. The patient will be on Levaquin 500 mg p.o. daily for 3 days. 6. Prednisone 20 mg daily for 3 days and 10 mg p.o. for 10 days. 7. Advised that I will see him on Sunday morning or morning. If any difficulty breathing or condition worsens, he is to go to the emergency room. 8. Do not drive. 9. The patient's leukocytosis from the steroid use. 10. Kidney functions have improved. 11. The patient was given IV fluids and his hydration status has improved. CONDITION: Stable. TIME SPENT: More than 30 minutes. Plan and coordination of the patient's care discussed in the presence of nurse. ZAKIA
--- NOTE | 2017-12-03 14:00 | DS ---
DATE OF SERVICE: 11/24/17 FINAL DIAGNOSIS: 1. RIGHT LOWER LOBE PNEUMONIA 2. SEVERE CHRONIC LUNG DISEASE 3. HYPERTENSION 4. MILD TO MODERATE AORTIC STENOSIS 5. HISTORY OF ASTHMA 6. DYSLIPIDEMIA 7. SEVERE ATHEROSCLEROSIS 8. 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 HISTORY OF MEGALOBLASTIC ANEMIA DISCHARGE INSTRUCTIONS: Followup appointment on Sunday or morning at Dr. Flores's office. MEDICATIONS AT DISCHARGE: Cardizem 60 mg twice a day Hyzaar 50/12.5 mg p.o. daily Prednisone 20 mg daily for 5 days; after that 10 mg p.o. for 10 days Aspirin 81 mg p.o. daily Proventil Hfa two puffs three times a day Xanax 0.25 mg at nighttime Symbicort 160/4.5 mg two puffs daily Duonebs one vial neb q.8 p.r.n. Lipitor 20 mg p.o. daily Spiriva Respimat one inhalation daily NEW PRESCRIPTIONS: None DIET INSTRUCTIONS: Heart Healthy ACTIVITY: As patient tolerates. SMOKING: Former smoker DISEASE SPECIFIC EDUCATION: Oxygen use Medications, steroids and their side effects Diagnosis Followup appointment HOSPITAL COURSE: 82-year-old white male was hospitalized with severe hypoxemia with acute respiratory failure. The patient had pneumonia. The patient was treated with IV Levaquin, aggressive treatment with nebs treatments with Pulmicort and Xopenex. The patient also was given IV steroids, later on switched to p.o. steroids. The patient's condition improved. The patient's echo showed normal LV contractility , enlarged RV cavity. The patient has severe chronic lung disease with very poor pulmonary function. He is noncompliant, doesn't wear his oxygen the way he is supposed to. Strongly advised to wear his oxygen on a regular basis. The side effects of steroids discussed including avascular necrosis of femoral bones. The patient is also impatient and noncompliant. His echo also showed mild aortic stenosis. The patient has systolic ejection murmur on auscultation that hasn't been mentioned during this hospital stay in my progress notes. In any case, the patient was discharged in stable condition, was up and about. His appetite had improved greatly. His oxygen saturation was more than 90% on 2L. He was able to talk sentences without stopping. He was up and about in the room. His overall medical condition improved remarkably. His ammonia clinically seems to be resolving very well. On discharge, his creatinine was 1.3, BUN 43 which is improvement from the previous day after IV hydration. WBC count has gone down some to 21,000 from steroid use. TIME SPENT: More than 60 minutes. MTDD
--- NOTE | 2017-12-03 14:38 | PN ---
CODING FOR BILLING 11/17/17 LEVEL 5 11/18/17 INTERMEDIATE 11/19/17 INTERMEDIATE 11/20/17 INTERMEDIATE 11/21/17 INTERMEDIATE 11/22/17 INTERMEDIATE 11/23/17 INTERMEDIATE 11/24/17 DISCHARGE MTDD
== END 2017-11-24 16:30 | disposition home or self-care (01) | DRG 193 ==
LOC: ED 08:39 → SCU 10:15
PROVIDERS: ADMIT Internal Medicine; ATTEND Internal Medicine
DX: J18.1 Lobar pneumonia, unspecified organism (principal); J96.21 Acute and chronic respiratory failure with hypoxia; J44.1 Chronic obstructive pulmonary disease with (acute) exacerbation; J44.0 Chronic obstructive pulmonary disease with (acute) lower respiratory infection; J20.9 Acute bronchitis, unspecified; R06.02 Shortness of breath; I35.0 Nonrheumatic aortic (valve) stenosis; I10 Essential (primary) hypertension; I70.90 Unspecified atherosclerosis; I51.7 Cardiomegaly; I65.21 Occlusion and stenosis of right carotid artery; E86.0 Dehydration; K59.00 Constipation, unspecified; R53.1 Weakness; R00.0 Tachycardia, unspecified; Z87.09 Personal history of other diseases of the respiratory system; Z91.19 Patient's noncompliance with other medical treatment and regimen; Z86.2 Personal history of diseases of the blood and blood-forming organs and certain disorders involving the immune mechanism; Z79.899 Other long term (current) drug therapy; Z87.891 Personal history of nicotine dependence
CPT/HCPCS: 36415; 80048; 80053; 82550; 82803; 83605; 83880; 84145; 84146; 84484; 85025; 87040; 87070; 87081; 87502; 87651; 93005; 93010; 94640; 96365; 96375; 99223; 99232; 99239; 99285

== ENCOUNTER 2018-10-07 13:25 | Emergency (ER) | payer OTHER ==
[2018-10-07 13:38] VITALS: BMI 22.8
[2018-10-07] MEDS ORDERED: MORPHINE 2 MG/ML SYRINGE IM STA ×2 (13:53→14:07)
[2018-10-07] MEDS ORDERED: ZOFRAN 4 MG/2 ML IM STA (13:53)
--- NOTE | 2018-10-07 14:58 | US ---
EXAM: ULTRASOUND ABDOMEN LIMITED HISTORY: Abdominal pain FINDINGS: Ultrasound abdomen, limited. Adasm-scale ultrasound and color Doppler was performed. Live r size was within normal limits at about 13 cm. The liver parenchyma demonstrated normal sonographic appearance without evidence of intrahepatic biliary dilatation or focal lesion. Patent and hepatoped al main portal vein. The gallbladder is distended. There appear to be a tiny gallstones present. Gallbladder wall thickn ess was within normal limits at 0.2 cm. The common bile duct diameter was within normal limits at 0. 5 cm. Visualized pancreas was within normal limits. No ascites identified. IMPRESSION: 1. Distended gallbladder with tiny stones. No gallbladder wall thickening or common bile duct dilat ation. No ascites.
--- NOTE | 2018-10-07 15:00 | CT ---
EXAM: CT of the abdomen pelvis without contrast History: Mid abdominal pain, history of appendectomy. Comparison: Abdominal ultrasound 10/07/2018, CT abdomen pelvis 11/15/2015 Technique: Multiplanar CT images through the abdomen and pelvis were obtained without the administra tion of IV contrast Findings: Lung bases are free of consolidation. No acute osseous abnormalities. Atherosclerotic vascular calcifications. Calcified granulomas within the spleen. No focal liver les ions. Gallbladder is distended and there is cholelithiasis. No peripancreatic inflammation. Adrena l glands are unremarkable. No renal stones and no hydronephrosis. 1.5 cm cyst within the inferior p ole of the right kidney. No bowel obstruction. Scattered colonic stool. No bladder wall thickening . Prominent prostate abutting the base of the bladder. Colonic diverticulosis. No free air and no ascites. Impression: 1. Cholelithiasis and distended gallbladder. 2. Simple appearing right renal cyst. 3. Colonic diverticulosis. 4. Prominent prostate
[2018-10-07 15:52] VITALS: BP 152/66; TEMP 98
--- NOTE | 2018-10-07 16:00 | ED.PDOC ---
General ED Provider: Dr. ELIZABETH JACOBS Chief Complaint: Abdominal Pain Stated Complaint: RUQ PAIN TODAY Time Seen by Physician: 13:30 Mode of Arrival: Walk-In Information Source: Patient Exam Limitations: No limitations Primary Care Provider: BRIANA TORRES Nursing and Triage Documentation Reviewed and Agree: Yes Does patient meet sepsis criteria?: No If yes, has appropriate treatment been initiated?: No System Inflammatory Response Syndrome: Not Applicable Sepsis Protocol: For patient's 13 years and over: Temp is 96.8 and below OR 101 and greater Pulse >90 BPM Resp >20/minute Acutely Altered Mental Status Are patient's symptoms suggestive of a new infection, such as: -Pneumonia -Skin, Soft Tissue -Endocarditis -UTI -Bone, Joint Infection -Implantable Device -Acute Abdominal Infection -Wound Infection -Meningitis -Blood Stream Catheter Infection -Unknown GI Complaint Exam - Abdominal Pain Complaint/Exam Onset: Gradual Duration: TODAY Symptoms Are: Still present Timing: Intermittent Initial Severity: Moderate Current Severity: Moderate Location of Pain: RUQ Radiates To: Denies: Chest, Back, Flank, LLQ, RLQ, Inguinal Character: Reports: Aching Aggravating: Reports: None Alleviating: Reports: None Associated Signs and Symptoms: Reports: Decreased appetite, Nausea. Denies: Diaphoresis, Fever, Cough, Chest pain, Dizziness, Back pain, Constipation, Blood in stool, Dysuria, Urinary frequency, Decreased urine output, Discharge, Vomiting, Diarrhea, Decreased activity Related History: Reports: Similar episode AAA Risk Factors: Reports: Hypertension Cardiac Risk Factors: Reports: Hypertension Testicular Torsion Risk Factors: Reports: None Surgical Obstruction Risk Factors: Reports: None Related Surgical History: Reports: Appendectomy Abdominal Findings: Present: None Review of Systems - Review Of Systems Constitutional: Reports: No symptoms Eyes: Reports: No symptoms Ears, Nose, Mouth, Throat: Reports: No symptoms Respiratory: Reports: No symptoms Cardiac: Reports: No symptoms GI: Reports: Abdominal pain : Reports: No symptoms Musculoskeletal: Reports: No symptoms Skin: Reports: No symptoms Neurological: Reports: No symptoms Endocrine: Reports: No symptoms Hematologic/Lymphatic: Reports: No symptoms All Other Systems: Reviewed and Negative Past Medical History - Past Medical History Previously Healthy: Yes Endocrine: Reports: None Cardiovascular: Reports: Hypertension Respiratory: Reports: COPD Hematological: Reports: None Gastrointestinal: Reports: None Genitourinary: Reports: None Neuro/Psych: Reports: None Musculoskeletal: Reports: None Cancer: Reports: None Other Pertinent Past Medical History: heart murmur, shingles - Surgical History General Surgical History: Reports: None - Family History Family History: Reports: None - Social History Smoking Status: Former smoker Hx Substance Use: No Alcohol Screening: None Physical Exam - Physical Exam Appearance: Well-appearing, No pain distress, Well-nourished Eyes: RIGOBERTO, EOMI, Conjunctiva clear ENT: Ears normal, Nose normal, Oropharynx normal Respiratory: Airway patent, Breath sounds clear, Breath sounds equal, Respirations nonlabored Cardiovascular: RRR, Pulses normal, No rub, No murmur GI/: Tender (RUQ) Musculoskeletal: Normal strength, ROM intact, No edema, No calf tenderness Skin: Warm, Dry, Normal color Neurological: Sensation intact, Motor intact, Reflexes intact, Cranial nerves intact, Alert, Oriented Psychiatric: Affect appropriate, Mood appropriate Interpretation - Radiology Interpretation Radiology Interpretation By: Radiologist Radiology Results: Positive (GALL STONE) Physician Notification - Case Discussed Physician Notified: PMD Time of Notification: 16:00 (TRANSFER NOW) Physician Notified: keagan koroma Time of Notification: 16:48 (accepted to go [facility]) Critical Care Note - Critical Care Note Total Time (mins): 0 Course - Course Hematology/Chemistry: 10/07/18 14:05 10/07/18 14:05 Orders, Labs, Meds: Lab Review 10/07/18 10/07/18 10/07/18 13:45 14:05 14:05 WBC 9.30 RBC 4.10 L Hgb 12.2 L Hct 38.5 L MCV 93.9 MCH 29.8 MCHC 31.7 L RDW Coeff of Amber 13.2 Plt Count 166 Immature Gran % (Auto) 0.3 Neut % (Auto) 82.4 Lymph % (Auto) 9.1 L Wright % (Auto) 7.0 Eos % (Auto) 0.9 Baso % (Auto) 0.3 Immature Gran # (Auto) 0.0 Neut # (Auto) 7.7 H Lymph # (Auto) 0.9 Wright # (Auto) 0.7 Eos # (Auto) 0.1 Baso # (Auto) 0.0 Sodium 134.7 Potassium 3.80 Chloride 95.8 L Carbon Dioxide 35.7 H Anion Gap 7.00 BUN 21.8 H Creatinine 0.74 Estimated GFR (MDRD) 101.00 BUN/Creatinine Ratio 29.45 Glucose 142.2 H Lactic Acid Calcium 9.89 Total Bilirubin 2.18 H AST 102.3 H ALT 66.7 H Alkaline Phosphatase 74.1 Total Creatine Kinase 57.3 Troponin I < 0.012 Total Protein 7.33 Albumin 4.42 Globulin 2.91 Albumin/Globulin Ratio 1.51 Amylase 94.3 Lipase 169.7 Procalcitonin Urine Color Yellow Urine Clarity Clear Urine pH 7.5 Ur Specific [place] 1.020 Urine Protein Negative Urine Glucose (UA) Negative Urine Ketones Negative Urine Blood Trace-intact Urine Nitrite Negative Urine Bilirubin Negative Urine Urobilinogen 4.0 Ur Leukocyte Esterase Negative Urine Microscopic RBC 2-5 Ur Squamous Epith Cells 0-2 Urine Bacteria Trace 10/07/18 10/07/18 14:05 14:05 WBC RBC Hgb Hct MCV MCH MCHC RDW Coeff of Amber Plt Count Immature Gran % (Auto) Neut % (Auto) Lymph % (Auto) Wright % (Auto) Eos % (Auto) Baso % (Auto) Immature Gran # (Auto) Neut # (Auto) Lymph # (Auto) Wright # (Auto) Eos # (Auto) Baso # (Auto) Sodium Potassium Chloride Carbon Dioxide Anion Gap BUN Creatinine Estimated GFR (MDRD) BUN/Creatinine Ratio Glucose Lactic Acid 1.29 Calcium Total Bilirubin AST ALT Alkaline Phosphatase Total Creatine Kinase Troponin I Total Protein Albumin Globulin Albumin/Globulin Ratio Amylase Lipase Procalcitonin < 0.05 Urine Color Urine Clarity Urine pH Ur Specific [place] Urine Protein Urine Glucose (UA) Urine Ketones Urine Blood Urine Nitrite Urine Bilirubin Urine Urobilinogen Ur Leukocyte Esterase Urine Microscopic RBC Ur Squamous Epith Cells Urine Bacteria Orders Category Date Time Status EKG-(ED ONLY) Stat CARDIO 10/07/18 13:52 Completed NPO REMINDER: IMAGING ONCE CARE 10/07/18 13:53 Active AMYLASE Stat LAB 10/07/18 14:05 Completed BLOOD CULTURE (ED ONLY) Stat LAB 10/07/18 14:05 Received CBC W/ AUTO DIFF Stat LAB 10/07/18 14:05 Completed COMPREHENSIVE METABOLIC PANEL Stat LAB 10/07/18 14:05 Completed CREATINE KINASE Stat LAB 10/07/18 14:05 Completed LACTIC ACID Stat LAB 10/07/18 14:05 Completed LIPASE Stat LAB 10/07/18 14:05 Completed PROCALCITONIN Stat LAB 10/07/18 14:05 Completed TROPONIN I Stat LAB 10/07/18 14:05 Completed URINALYSIS C & S IF INDICATED Stat LAB 10/07/18 13:45 Completed Morphine Sulfate [Morphine 2 mg/ml Syringe] MEDS 10/07/18 14:07 Discontinued 2 mg IM ONCE STA Ondansetron HCl/Pf [Zofran 4 mg/2 ml] MEDS 10/07/18 13:53 Discontinued 4 mg IM ONCE STA CHEST, 1V AP ONLY Stat RADS 10/07/18 16:[address] ABDOMEN/PELVIS WO CONTRAST Stat RADS 10/07/18 13:53 Completed ULTRASOUND ABDOMEN, RT. UPPER QUAD [U/S ABDOMEN RT RADS 10/07/18 13:52 Completed UPPER QUAD] Stat Medications Discontinued Medications Generic Name Dose Route Start Last Admin Trade Name Freq PRN Reason Stop Dose Admin Morphine Sulfate 2 mg 10/07/18 14:07 10/07/18 14:08 Morphine 2 Mg/Ml Syringe IM 10/07/18 14:08 2 mg ONCE STA Administration Ondansetron HCl 4 mg 10/07/18 13:53 10/07/18 14:07 Zofran 4 Mg/2 Ml IM 10/07/18 13:54 4 mg ONCE STA Administration Vital Signs: Temp Pulse Resp BP Pulse Ox 10/07/18 15:51 98.0 F 70 20 152/66 H 99 10/07/18 13:26 96.0 F L 72 20 176/70 H 89 L Departure - Departure Time of Disposition: 16:00 Disposition: TSF SHORT-TRM HOSP Discharge Problem: Abdominal pain, Colic, biliary Condition: Good Pt referred to PMD for follow-up: Yes IPMP verified?: No Allergies/Adverse Reactions: Allergies No Known Allergies Allergy (Verified 10/07/18 13:30) Home Medications: Ambulatory Orders Aspirin [Aspirin EC] 81 mg PO DAILY 11/30/14 Albuterol Sulfate [Proventil Hfa] 2 gm IH TID PRN 12/17/14 Alprazolam [Xanax] 0.25 mg PO BEDTIME 02/14/17 Budesonide/Formoterol Fumarate [Symbicort 160-4.5 Mcg Inhaler] 1 puff IH BID Atorvastatin Calcium [Lipitor] 40 tab PO DAILY 11/17/17 Meclizine HCl 1 tab PO BID PRN 11/17/17 Diltiazem HCl [Cardizem] 60 mg PO Q12HR 10/07/18 Losartan/Hydrochlorothiazide [Hyzaar 50-12.5 mg Tab] 1 tab PO DAILY 10/07/18 Potassium Chloride [K-Dur] 20 meq PO DAILY 10/07/18 Disposition Discussed With: Patient, Family
--- NOTE | 2018-10-07 17:46 | DI ---
EXAM: AP single view of the chest. HISTORY: Cough. FINDINGS: The bones are unremarkable. The cardiac silhouette and pulmonary vasculature are within no rmal limits. The costophrenic angles are clear. There are emphysematous changes throughout both martina gs. There is minimal right basilar atelectasis and/or pneumonia. Impression: Minimal right basilar atelectasis and/or pneumonia. Chronic obstructive pulmonary disease.
== END 2018-10-07 18:48 | disposition short-term general hospital (02) ==
LOC: ED 13:25
DX: K80.80 Other cholelithiasis without obstruction (principal); I10 Essential (primary) hypertension; Z79.899 Other long term (current) drug therapy
CPT/HCPCS: 36415; 80053; 81001; 82150; 82550; 83605; 83690; 84145; 84484; 85025; 87040; 93005; 93010; 96372; 99285

== ENCOUNTER 2019-03-31 17:57 | Emergency (ER) ==
[2019-03-31 17:59] VITALS: BP 181/71; TEMP 97.4; BMI 20.5
--- NOTE | 2019-03-31 18:30 | ED.PDOC ---
General ED Provider: Dr. ELIZABETH JACOBS Chief Complaint: Laceration Stated Complaint: laceration left elbow Time Seen by Physician: 18:00 (see photos) Mode of Arrival: Walk-In Information Source: Patient Exam Limitations: No limitations Primary Care Provider: BRIANA TORRES Nursing and Triage Documentation Reviewed and Agree: Yes Does patient meet sepsis criteria?: No System Inflammatory Response Syndrome: Not Applicable Sepsis Protocol: For patient's 13 years and over: Temp is 96.8 and below OR 101 and greater Pulse >90 BPM Resp >20/minute Acutely Altered Mental Status Are patient's symptoms suggestive of a new infection, such as: -Pneumonia -Skin, Soft Tissue -Endocarditis -UTI -Bone, Joint Infection -Implantable Device -Acute Abdominal Infection -Wound Infection -Meningitis -Blood Stream Catheter Infection -Unknown Skin Complaint Exam - Lac/Torso/Upper Ext. Complaint/Exam Location of Injury: Left (elbow only) Mechanism of Injury: Laceration (by blunt force ) Onset/Duration: 1 hrago Symptoms Are: Still present Initial Severity: Mild Current Severity: Mild Aggravating: None Alleviating: None Associated Signs and Symptoms: Denies: Fever, Chills, Erythema, Numbness, Tingling Differential Diagnoses: Laceration Review of Systems - Review Of Systems Constitutional: Reports: No symptoms Eyes: Reports: No symptoms Ears, Nose, Mouth, Throat: Reports: No symptoms Respiratory: Reports: No symptoms Cardiac: Reports: No symptoms GI: Reports: No symptoms : Reports: No symptoms Musculoskeletal: Reports: No symptoms Skin: Reports: Other (left elbow laceration see photos) Neurological: Reports: No symptoms Endocrine: Reports: No symptoms Hematologic/Lymphatic: Reports: No symptoms All Other Systems: Reviewed and Negative Past Medical History - Past Medical History Previously Healthy: Yes Endocrine: Reports: None Cardiovascular: Reports: Hypertension Respiratory: Reports: COPD Hematological: Reports: None Gastrointestinal: Reports: None Genitourinary: Reports: None Neuro/Psych: Reports: None Musculoskeletal: Reports: None Cancer: Reports: None Other Pertinent Past Medical History: heart murmur, shingles - Surgical History General Surgical History: Reports: None - Family History Family History: Reports: None - Social History Smoking Status: Former smoker Hx Substance Use: No Alcohol Screening: None Physical Exam - Physical Exam Appearance: Well-appearing, No pain distress, Well-nourished Eyes: RIGOBERTO, EOMI, Conjunctiva clear ENT: Ears normal, Nose normal, Oropharynx normal Respiratory: Airway patent, Breath sounds clear, Breath sounds equal, Respirations nonlabored Cardiovascular: RRR, Pulses normal, No rub, No murmur GI/: Soft, Nontender, No masses, Bowel sounds normal, No Organomegaly Musculoskeletal: Normal strength, ROM intact, No edema, No calf tenderness Skin: Warm, Dry (laceration left elbow) Neurological: Sensation intact, Motor intact, Reflexes intact, Cranial nerves intact, Alert, Oriented Psychiatric: Affect appropriate, Mood appropriate Procedures - Laceration/Wound Repair No standard instances Wound Description: Linear Wound Length (cm): 6cm Wound Width: 3mm Wound Depth: 2mm Wound Explored: Clean Wound Irrigated: No Wound Prep: Saline Anesthesia: Lidocaine Wound Repaired With: Sutures, Steri-strips Critical Care Note - Critical Care Note Total Time (mins): 0 Course - Course Vital Signs: Temp Pulse Resp BP Pulse Ox 03/31/19 17:57 97.4 F L 69 20 181/71 H 91 L Departure - Departure Time of Disposition: 18:29 (see photos) Disposition: HOME SELF-CARE Discharge Problem: Laceration of left elbow Qualifiers: Encounter type: initial encounter Qualified Code(s): S51.012A - Laceration without foreign body of left elbow, initial encounter Instructions: Laceration (ED) Condition: Good Pt referred to PMD for follow-up: Yes IPMP verified?: No Additional Instructions: Please call your Family Physician as soon as possible to schedule a follow-up appointment. Allergies/Adverse Reactions: Allergies No Known Allergies Allergy (Verified 10/07/18 13:30) Home Medications: Ambulatory Orders Aspirin [Aspirin EC] 81 mg PO DAILY 11/30/14 Albuterol Sulfate [Proventil Hfa] 2 gm IH TID PRN 12/17/14 Alprazolam [Xanax] 0.25 mg PO BEDTIME 02/14/17 Budesonide/Formoterol Fumarate [Symbicort 160-4.5 Mcg Inhaler] 1 puff IH BID Atorvastatin Calcium [Lipitor] 40 tab PO DAILY 11/17/17 Meclizine HCl 1 tab PO BID PRN 11/17/17 Diltiazem HCl [Cardizem] 60 mg PO Q12HR 10/07/18 Losartan/Hydrochlorothiazide [Hyzaar 50-12.5 mg Tab] 1 tab PO DAILY 10/07/18 Potassium Chloride [K-Dur] 20 meq PO DAILY 10/07/18 Disposition Discussed With: Patient
== END 2019-03-31 18:42 | disposition home or self-care (01) ==
LOC: ED 17:57
DX: S51.012A Laceration without foreign body of left elbow, initial encounter (principal); W22.8XXA Striking against or struck by other objects, initial encounter
CPT/HCPCS: 99282

== ENCOUNTER 2020-12-16 13:01 | Inpatient (IN) ==
--- NOTE | 2020-12-16 13:42 | ED.PDOC ---
General ED Provider: Dr. JOHN JACKSON Chief Complaint: Shortness of Air Stated Complaint: SOB, Feeling bad, poor appetite not eating or drinking Time Seen by Provider: 12/16/20 13:20 Mode of Arrival: Wheelchair Information Source: Patient Primary Care Provider: BRIANA TORRES Nursing and Triage Documentation Reviewed and Agree: Yes Does patient meet sepsis criteria?: No System Inflammatory Response Syndrome: Not Applicable Sepsis Protocol: For patient's 13 years and over: Temp is 96.8 and below OR 101 and greater Pulse >90 BPM Resp >20/minute Acutely Altered Mental Status Are patient's symptoms suggestive of a new infection, such as: -Pneumonia -Skin, Soft Tissue -Endocarditis -UTI -Bone, Joint Infection -Implantable Device -Acute Abdominal Infection -Wound Infection -Meningitis -Blood Stream Catheter Infection -Unknown Respiratory Complaint Exam Respiratory Complaint/Exam Onset/Duration: Worse over past week Symptoms Are: Still present Timing: Constant Initial Severity: Moderate Current Severity: Moderate Location: Chest Character: Reports Non-productive cough Associated Signs and Symptoms: Reports Dyspnea Related History: Reports Similar episode History of Healthcare-Acquired Pneumonia: No Related Surgical History: Reports None Pulmonary Embolism Risk Factors: None Cardiac Risk Factors: Reports None Pseudomonas Risk Factors: Reports None Tuberculosis Risk Factors: Reports None and Drug addiction Status Asthmaticus Risk Factors: Reports None Home Oxygen Use: Yes Recent Stress Test: No Recent Echo/LV Function: No Current Antibiotic Use: No Current Asthma Medication Use: Yes Respiratory Distress: Moderate Inadequate Respiratory Effort: Yes Dysphagia Present: Yes Stridor Present: Yes JVD Present: No Accessory Muscle Use: No Retractions: Not Present Diminished Breath Sounds: Yes Sinus Tenderness: None Grunting Respirations: No Kussmaul Respirations: No Differential Diagnoses: COPD Exacerbation and Pneumonia Review of Systems Review Of Systems Constitutional: Reports Weakness All Other Systems: Reviewed and Negative Physical Exam Physical Exam Appearance: Reports Well-appearing and Other Interpretation EKG Interpretation Time of EKG #1: 13:50 Rate: Normal Rhythm: Sinus Ectopy: None ST Segment: Normal Interpretation: NSR-sinus arrhythmia Critical Care Note Critical Care Note Total Critical Care Time (mins): 60 Course Course Hematology/Chemistry: 12/16/20 13:50 12/16/20 13:50 Orders, Labs, Meds: Lab Review 12/16/20 12/16/20 12/16/20 13:50 13:50 13:50 WBC 6.30 RBC 4.67 L Hgb 13.5 L Hct 46.5 MCV 99.6 H MCH 28.9 MCHC 29.0 L RDW Coeff of Amber 13.1 Plt Count 148 Immature Gran % (Auto) 0.2 Neut % (Auto) 76.6 H Lymph % (Auto) 14.0 [place] % (Auto) 8.6 Eos % (Auto) 0.3 Baso % (Auto) 0.3 Neut # (Auto) 4.8 Lymph # (Auto) 0.9 [place] # (Auto) 0.5 Eos # (Auto) 0.0 Baso # (Auto) 0.0 Immature Gran # (Auto) 0.0 Puncture Site Base Excess O2 Saturation ABG pH ABG pCO2 ABG pO2 ABG HCO3 ABG Total CO2 Steven Test Hemoglobin Oxyhemoglobin Carboxyhemoglobin Total Hemoglobin O2 Delivery Device Oxygen Liter Flow Sodium 139.5 Potassium 5.12 H Chloride 92.2 L Carbon Dioxide 41.0 H* Anion Gap 11.42 BUN 23.9 H Creatinine 0.73 Estimated GFR (MDRD) 102.00 BUN/Creatinine Ratio 32.73 Glucose 103.7 Uric Acid 5.59 Calcium 10.03 Total Bilirubin 0.68 AST 24.7 ALT 9.9 Alkaline Phosphatase 66.0 Total Creatine Kinase 29.2 L Troponin I < 0.012 Total Protein 7.62 Albumin 4.31 Globulin 3.31 Albumin/Globulin Ratio 1.30 Adenovirus (PCR) B. pertussis DNA (PCR) B.parapertussis DNA PCR C. pneumoniae DNA (PCR) Coronavirus OC43 (PCR) Coronavirus HKU1 (PCR) Coronavirus 229E (PCR) Coronavirus NL63 (PCR) Human Metapneumovir PCR Influenza Type A (PCR) Influenza B (RT-PCR) M. pneumoniae (PCR) Parainfluenza 1 (PCR) Parainfluenza 2 (PCR) Parainfluenza 3 (PCR) Parainfluenza 4 (PCR) RSV (PCR) Entero/Rhino (PCR) SARS-CoV-2 (PCR) 12/16/20 12/16/20 13:55 14:35 WBC RBC Hgb Hct MCV MCH MCHC RDW Coeff of Amber Plt Count Immature Gran % (Auto) Neut % (Auto) Lymph % (Auto) [place] % (Auto) Eos % (Auto) Baso % (Auto) Neut # (Auto) Lymph # (Auto) [place] # (Auto) Eos # (Auto) Baso # (Auto) Immature Gran # (Auto) Puncture Site R rad Base Excess 19.9 H O2 Saturation 98.5 H ABG pH 7.30 L ABG pCO2 94.0 H ABG pO2 125.0 H ABG HCO3 46.3 H ABG Total CO2 49.2 H Steven Test Y Hemoglobin 1.1 Oxyhemoglobin 96.4 Carboxyhemoglobin 2.1 H Total Hemoglobin 12.6 O2 Delivery Device Cannula Oxygen Liter Flow 2.00 Sodium Potassium Chloride Carbon Dioxide Anion Gap BUN Creatinine Estimated GFR (MDRD) BUN/Creatinine Ratio Glucose Uric Acid Calcium Total Bilirubin AST ALT Alkaline Phosphatase Total Creatine Kinase Troponin I Total Protein Albumin Globulin Albumin/Globulin Ratio Adenovirus (PCR) Not detected B. pertussis DNA (PCR) Not detected B.parapertussis DNA PCR Not detected C. pneumoniae DNA (PCR) Not detected Coronavirus OC43 (PCR) Not detected Coronavirus HKU1 (PCR) Not detected Coronavirus 229E (PCR) Not detected Coronavirus NL63 (PCR) Not detected Human Metapneumovir PCR Not detected Influenza Type A (PCR) Not detected Influenza B (RT-PCR) Not detected M. pneumoniae (PCR) Not detected Parainfluenza 1 (PCR) Not detected Parainfluenza 2 (PCR) Not detected Parainfluenza 3 (PCR) Not detected Parainfluenza 4 (PCR) Not detected RSV (PCR) Not detected Entero/Rhino (PCR) Not detected SARS-CoV-2 (PCR) Not detected Orders Category Date Time Status ABG DRAW REQUEST Stat CARDIO 12/16/20 13:37 Completed ABG DRAW REQUEST Stat CARDIO 12/16/20 16:45 Ordered EKG-(ED ONLY) Stat CARDIO 12/16/20 13:37 Completed ABG COOX Stat LAB 12/16/20 13:55 Completed ABG COOX Stat LAB 12/16/20 15:33 Ordered CBC W/ AUTO DIFF Stat LAB 12/16/20 13:50 Completed CMP [COMPREHENSIVE METABOLIC PANEL] Stat LAB 12/16/20 13:50 Completed CPK [CREATINE KINASE] Stat LAB 12/16/20 13:50 Completed RESPIRATORY PANEL 2.1 (PCR) Stat LAB 12/16/20 14:35 Completed TROPONIN I Stat LAB 12/16/20 13:50 Completed UA [URINALYSIS C & S IF INDICATED] Stat LAB 12/16/20 13:38 Uncollected URIC ACID Stat LAB 12/16/20 13:50 Completed CHEST, 1V AP ONLY Stat RADS 12/16/20 13:37 Completed Vital Signs: Temp Pulse Resp BP Pulse Ox 12/16/20 14:50 90 L 12/16/20 13:02 98 F 86 20 147/65 H 86 L Discharge Plan Discharge Prescriptions: No Action aspirin 81 MG tablet,delayed release (DR/EC) 81 mg PO DAILY RF: 0 alprazolam 0.25 MG tablet 0.25 mg PO BEDTIME RF: 0 potassium chloride [Klor-Con M20] 20 MEQ tablet,ER particles/crystals 20 meq PO DAILY RF: 0 losartan-hydrochlorothiazide 1 TAB tablet 1 tab PO DAILY RF: 0 diltiazem HCl 60 MG tablet 60 mg PO Q12HR RF: 0 atorvastatin [Lipitor] 20 MG tablet 40 tab PO DAILY RF: 0 ED Provider: JOHN JACKSON Physician Progress Note: []
[2020-12-16 13:58] LABS: BASOPHILS % (AUTO) 0.3 % (0.0-3.0); EOSINOPHILS % (AUTO) 0.3 % (0.0-7.0); HEMATOCRIT 46.5 % (42.0-52.0); HEMOGLOBIN 13.5 g/dl (14.0-18.0); IMMATURE GRANULOCYTE % (AUTO) 0.2 % (0.0-5.0); LYMPHOCYTES # (AUTO) 0.9 K/uL (0.60-3.4); MEAN CORPUSCULAR HEMOGLOBIN 28.9 pg (27.0-31.0); MEAN CORPUSCULAR VOLUME 99.6 fl (80.0-94.0); MONOCYTES # (AUTO) 0.5 K/uL (0.4-2.0); MONOCYTES % (AUTO) 8.6 (0-10); NEUTROPHILS # (AUTO) 4.8 K/ul (2.0-6.9); NEUTROPHILS % (AUTO) 76.6 % (42.2-75.2); PLATELET COUNT 148 10^3/uL (140-440); RDW COEFFICIENT OF VARIATION 13.1 % (11.6-14.8); RED BLOOD COUNT 4.67 10^6/ul (4.70-6.10)
[2020-12-16 14:09] LABS: URIC ACID 5.59 mg/dL (3.5-8.5)
[2020-12-16 14:10] LABS: ALANINE AMINOTRANSFERASE 9.9 U/L (0-50); ALBUMIN 4.31 g/dL (3.5-5.0); ASPARTATE AMINO TRANSFERASE 24.7 U/L (17-59); BILIRUBIN,TOTAL 0.68 mg/dL (0.2-1.3); BLOOD UREA NITROGEN 23.9 mg/dL (9-20); CALCIUM 10.03 mg/dL (8.4-10.2); CHLORIDE 92.2 mmol/L (98-107); CREATINE KINASE 29.2 U/L (55-170); CREATININE 0.73 mg/dL (0.60-1.10); GLUCOSE 103.7 mg/dL (74-106); POTASSIUM 5.12 mmol/L (3.5-5.1); SODIUM 139.5 mmol/L (134.5-145); TOTAL PROTEIN 7.62 g/dL (6.3-8.2)
--- NOTE | 2020-12-16 14:11 | DI ---
EXAM: Single AP view of the chest HISTORY: Shortness of breath. COMPARISON: Chest x-ray 10/07/[address] chest 12/06/2020 FINDINGS: Cardiomediastinal silhouette is normal. The lungs are hyperinflated. There is no pneumoth orax or effusion. There is no consolidation, nodule or mass. The osseous structures demonstrate deg enerative disease. IMPRESSION: Hyperinflated lungs suggestive of chronic obstructive pulmonary disease.
[2020-12-16 14:22] LABS: TROPONIN I < 0.012 ng/ml (0.0000-0.120)
[2020-12-16 16:03] LABS: ABG PH 7.35 (7.35-7.45)
[2020-12-16] MEDS ORDERED: ZITHROMAX 500 MG in SODIUM CHLORIDE 250 ML IV STA (16:44)
[2020-12-16] MEDS ORDERED: SOLU-MEDROL 125 MG IVP STA (16:46)
[2020-12-16] MEDS ORDERED: ZOFRAN 4 MG/2 ML IVP PRN (16:49)
[2020-12-16] MEDS ORDERED: ROCEPHIN 1 GM/50 ML D5W 1 GM/50 ML BAG IV SCH (17:00)
[2020-12-16] MEDS ORDERED: SODIUM CHLORIDE 0.9%-KCL 20 MEQ 1,000 ML IV SCH (17:00)
[2020-12-16 18:15] VITALS: BMI 17.3
[2020-12-16] MEDS: SOLU-MEDROL 125 MG IVP SCH (18:36)
[2020-12-16] MEDS: LOVENOX SUBCUT SCH (19:41)
[2020-12-16] MEDS: XANAX PO SCH (20:18)
[2020-12-16] MEDS: CARDIZEM PO SCH (20:18)
[2020-12-16] MEDS: SODIUM CHLORIDE 1,000 ML IV SCH (20:52)
[2020-12-16 23:02] LABS: BILIRUBIN,URINE Negative (NEGATIVE); CLARITY,URINE Clear (CLEAR); COLOR,URINE Yellow (YELLOW); GLUCOSE, URINE (UA) 1+ (NEGATIVE); KETONES,URINE 1+ (NEGATIVE); LEUKOCYTE ESTERASE ,URINE Negative (NEGATIVE); NITRITE,URINE Negative (NEGATIVE); PH,URINE 7.5 (5-9); PROTEIN,URINE Trace (NEGATIVE); URINE, BLOOD Negative (NEGATIVE)
[2020-12-17] MEDS: SOLU-MEDROL 125 MG IVP SCH ×5 (00:25→23:37)
[2020-12-17 05:16] LABS: ABG PH 7.42 (7.35-7.45)
[2020-12-17 05:20] LABS: HEMATOCRIT 39.7 % (42.0-52.0); HEMOGLOBIN 12.1 g/dl (14.0-18.0); IMMATURE GRANULOCYTE % (AUTO) 0.3 % (0.0-5.0); LYMPHOCYTES # (AUTO) 0.5 K/uL (0.60-3.4); MEAN CORPUSCULAR HEMOGLOBIN 29.5 pg (27.0-31.0); MEAN CORPUSCULAR HGB CONC 30.5 (31.8-35.4); MEAN CORPUSCULAR VOLUME 96.8 fl (80.0-94.0); MONOCYTES % (AUTO) 0.6 (0-10); NEUTROPHILS # (AUTO) 2.8 K/ul (2.0-6.9); NEUTROPHILS % (AUTO) 83.1 % (42.2-75.2); PLATELET COUNT 146 10^3/uL (140-440); RDW COEFFICIENT OF VARIATION 12.9 % (11.6-14.8); WHITE BLOOD COUNT 3.32 K/ul (4.2-10.2)
[2020-12-17 05:33] LABS: ALANINE AMINOTRANSFERASE 8.1 U/L (0-50); ALBUMIN 3.49 g/dL (3.5-5.0); ALKALINE PHOSPHATASE 54.8 U/L (56-119); ASPARTATE AMINO TRANSFERASE 22.5 U/L (17-59); BILIRUBIN,TOTAL 0.53 mg/dL (0.2-1.3); BLOOD UREA NITROGEN 26.4 mg/dL (9-20); CALCIUM 9.58 mg/dL (8.4-10.2); CHLORIDE 95.6 mmol/L (98-107); CREATININE 0.61 mg/dL (0.60-1.10); GLUCOSE 147.7 mg/dL (74-106); POTASSIUM 4.8 mmol/L (3.5-5.1); SODIUM 136.6 mmol/L (134.5-145); TOTAL PROTEIN 6.3 g/dL (6.3-8.2)
[2020-12-17 05:39] LABS: CARBON DIOXIDE 39.7 mmol/L (22-30.0)
[2020-12-17] MEDS ORDERED: PULMICORT 1 MG/2 ML NEB STA (08:47)
[2020-12-17] MEDS: ASPIRIN EC PO SCH (08:49)
[2020-12-17] MEDS: HYZAAR 50-12.5 MG TAB PO SCH (08:49)
[2020-12-17] MEDS: ZITHROMAX PO SCH (08:49)
[2020-12-17] MEDS: CARDIZEM PO SCH ×2 (08:49→21:19)
[2020-12-17] MEDS: LOVENOX SUBCUT SCH (08:49)
[2020-12-17] MEDS ORDERED: LIPITOR PO SCH (09:00)
--- NOTE | 2020-12-17 09:52 | PCM.PROG ---
Attending Provider: ATTENDING PROVIDER: Dr. BRIANA TORRES This patient is seen with Raina Rodriges, Nurse Practitioner. DATE OF SERVICE: 12/17/20 SUBJECTIVE: This 85 year old /WHITE M was hospitalized 12/16/20. The patient is resting comfortably, c02 level improved on Vapotherm. He is still slightly confused. REVIEW OF SYSTEMS: CONSTITUTIONAL: No night sweats. No fatigue, malaise, lethargy. No fever or chills. HEENT: Eyes: No visual changes. No eye pain. No eye discharge. ENT: No runny nose. No epistaxis. No sinus pain. No odynophagia. No congestion. RESPIRATORY: Cough. Shortness of breath. No hemoptysis. CARDIOVASCULAR: No angina symptoms. No CHF symptoms. No atypical chest pain for CAD. No palpitations. No orthopnea.. GASTROINTESTINAL: No abdominal pain. No nausea or vomiting. No diarrhea or constipation. No hematemesis. No hematochezia. GENITOURINARY: No urgency. No frequency. No dysuria. No hematuria. No obstructive symptoms. No discharge. No pain. No significant abnormal bleeding. MUSCULOSKELETAL: No musculoskeletal pain; no joint swelling. NEUROLOGICAL: Awake, alert, oriented to time, place and person. No headache. No neck pain. No syncope. No seizures. No dizziness. PSYCHIATRIC: Confusion. Not anxious. No depression. No suicidal thoughts. No homicidal thoughts. SKIN: No rash. No lesions. No wounds. ENDOCRINE: No unexplained weight loss. No weight gain. HEMATOLOGIC/LYMPHATIC: No anemia. No purpura. No petechiae. No prolonged or excessive bleeding. No palpable lymph nodes. PHYSICAL EXAMINATION: GENERAL: The patient is awake, oriented to person and place not time. VITAL SIGNS: Temperature 98.3 F, Pulse 68, Respiratory Rate 18, BP 132/67, Pulse Ox 94% HEENT: Head normocephalic, atraumatic. Eyes: Extraocular muscles are intact. Pupils are equal, round and reactive to light and accommodation. Ears: No lesions. Nose appeared normal. Throat: No exudate or erythema. NECK: Supple. No JVD, no carotid bruit. No lymphadenopathy or thyromegaly. LUNGS: Severely diminished breath sounds. Clear to auscultation. Percussion note normal. Chest symmetrical. HEART: S1, S2, no S3. No murmurs. No cyanosis or clubbing. No ascites. Pulses: Dorsalis pedis and posterior tibial pulses +1 to +2 both sides. ABDOMEN: Soft. Non-tender. Bowel sounds active. No CVA tenderness. No mass felt. EXTREMITIES: No edema. Full range of motion of all extremities, equal. NEUROLOGIC: No focal deficit. Cranial nerves II through XII are grossly intact. No headache. No double vision. SKIN: Not dry. Intact. Turgor-normal. LYMPHATIC: No palpable lymph nodes/no lymphedema. MUSCULOSKELETAL: Normal joints with no swelling. Muscle tone is normal. LAB REVIEW: 12/17/20 05:05 12/17/20 05:05 12/17/20 05:05: Sodium 136.6, Potassium 4.80, Chloride 95.6 L, Carbon Dioxide 39.7 H, Anion Gap 6.10, BUN 26.4 H, Creatinine 0.61, Estimated GFR (MDRD) 126.00, BUN/Creatinine Ratio 43.27, Glucose 147.7 H, Calcium 9.58, Total Bilirubin 0.53, AST 22.5, ALT 8.1, Alkaline Phosphatase 54.8 L, Total Protein 6.30, Albumin 3.49 L, Globulin 2.81, Albumin/Globulin Ratio 1.24 12/17/20 05:05: WBC 3.32 L, RBC 4.10 L, Hgb 12.1 L, Hct 39.7 L D, MCV 96.8 H, MCH 29.5, MCHC 30.5 L, RDW Coeff of Amber 12.9, Plt Count 146, Immature Gran % (Auto) 0.3, Neut % (Auto) 83.1 H, Lymph % (Auto) 16.0, [place] % (Auto) 0.6, Eos % (Auto) 0.0, Baso % (Auto) 0.0, Neut # (Auto) 2.8, Lymph # (Auto) 0.5 L, [place] # (Auto) 0.0 L, Eos # (Auto) 0.0, Baso # (Auto) 0.0, Immature Gran # (Auto) 0.0 12/17/20 05:00: Puncture Site Lb, Base Excess 14.4 H, O2 Saturation 97.8, ABG pH 7.42, ABG pCO2 60.0 H, ABG pO2 99.0, ABG HCO3 38.9 H, ABG Total CO2 40.7 H, Steven Test +, Hemoglobin 0.7, Oxyhemoglobin 94.9 L, Carboxyhemoglobin 3.4 H, Total Hemoglobin 12.6, O2 Delivery Device Vapotherm, FiO2 % 32.0 12/16/20 22:55: Urine Color Yellow, Urine Clarity Clear, Urine pH 7.5, Ur Specific [place] 1.025, Urine Protein Trace H, Urine Glucose (UA) 1+ H, Urine Ketones 1+ H, Urine Blood Negative, Urine Nitrite Negative, Urine Bilirubin Negative, Urine Urobilinogen 1.0 H, Ur Leukocyte Esterase Negative 12/16/20 15:50: Puncture Site Rr, Base Excess 19.1 H, O2 Saturation 87.7 L, ABG pH 7.35, ABG pCO2 81.0 H, ABG pO2 57.0 L*, ABG HCO3 44.7 H, ABG Total CO2 47.2 H , [place] Test Y, Hemoglobin 1.1, Oxyhemoglobin 91.6 L, Carboxyhemoglobin 2.1 H, Total Hemoglobin 11.9, O2 Delivery Device Vapotherm, FiO2 % 28.0 12/16/20 14:35: Adenovirus (PCR) Not detected, B. pertussis DNA (PCR) Not detected, B.parapertussis DNA PCR Not detected, C. pneumoniae DNA (PCR) Not detected, Coronavirus OC43 (PCR) Not detected, Coronavirus HKU1 (PCR) Not detected, Coronavirus 229E (PCR) Not detected, Coronavirus NL63 (PCR) Not detected, Human Metapneumovir PCR Not detected, Influenza Type A (PCR) Not detected, Influenza B (RT-PCR) Not detected, M. pneumoniae (PCR) Not detected, Parainfluenza 1 (PCR) Not detected, Parainfluenza 2 (PCR) Not detected, Parainfluenza 3 (PCR) Not detected, Parainfluenza 4 (PCR) Not detected, RSV (PCR) Not detected, Entero/Rhino (PCR) Not detected, SARS-CoV-2 (PCR) Not detected 12/16/20 13:55: Puncture Site R rad, Base Excess 19.9 H, O2 Saturation 98.5 H, ABG pH 7.30 L, ABG pCO2 94.0 H, ABG pO2 125.0 H, ABG HCO3 46.3 H, ABG Total CO2 49.2 H, Steven Test Y, Hemoglobin 1.1, Oxyhemoglobin 96.4, Carboxyhemoglobin 2.1 H, Total Hemoglobin 12.6, O2 Delivery Device Cannula, Oxygen Liter Flow 2.00 12/16/20 13:50: Uric Acid 5.59, Troponin I < 0.012 12/16/20 13:50: Sodium 139.5, Potassium 5.12 H, Chloride 92.2 L, Carbon Dioxide 41.0 H*, Anion Gap 11.42, BUN 23.9 H, Creatinine 0.73, Estimated GFR (MDRD) 102.00, BUN/Creatinine Ratio 32.73, Glucose 103.7, Calcium 10.03, Total Bilirubin 0.68, AST 24.7, ALT 9.9, Alkaline Phosphatase 66.0, Total Creatine Kinase 29.2 L, Total Protein 7.62, Albumin 4.31, Globulin 3.31, Albumin/Globulin Ratio 1.30 12/16/20 13:50: WBC 6.30, RBC 4.67 L, Hgb 13.5 L, Hct 46.5, MCV 99.6 H, MCH 28.9, MCHC 29.0 L, RDW Coeff of Amber 13.1, Plt Count 148, Immature Gran % (Auto) 0.2, Neut % (Auto) 76.6 H, Lymph % (Auto) 14.0, [place] % (Auto) 8.6, Eos % (Auto) 0.3, Baso % (Auto) 0.3, Neut # (Auto) 4.8, Lymph # (Auto) 0.9, [place] # (Auto) 0.5, Eos # (Auto) 0.0, Baso # (Auto) 0.0, Immature Gran # (Auto) 0.0 ASSESSMENT: Please see below. 1. Acute respiratory failure with c02 retention. 2. Severe COPD exacerbation with c02 retention. 3. Chronic kidney disease, Stage 2. 4. Anxiety. PLAN: 1. Pulmicort 1 mg b.i.d. 2. Duoneb t.i.d. Plan and coordination of the patient's care discussed in the presence of Director [employer] and nurse. CONDITION: Stable SCRIBED BY: Mau ALMONTE scribed while in presence of service performed by Dr. Torres/Raina oRdriges APRN on 12/17/20 ([id number])
[2020-12-17] MEDS: SODIUM CHLORIDE 1,000 ML IV SCH (10:53)
[2020-12-17] MEDS: DUONEB NEB SCH ×2 (13:35→22:10)
[2020-12-17] MEDS: LIPITOR PO SCH (17:13)
[2020-12-17] MEDS: XANAX PO SCH (21:19)
[2020-12-17] MEDS: ROCEPHIN 1 GM/50 ML D5W 1 GM/50 ML BAG IV SCH (21:21)
[2020-12-17] MEDS: PULMICORT 1 MG/2 ML NEB SCH (22:10)
[2020-12-18] MEDS: SODIUM CHLORIDE 1,000 ML IV SCH ×2 (01:47→16:12)
[2020-12-18] MEDS: PULMICORT 1 MG/2 ML NEB SCH ×2 (04:45→21:00)
[2020-12-18] MEDS: DUONEB NEB SCH ×3 (04:45→21:00)
[2020-12-18 05:29] LABS: ABG PH 7.49 (7.35-7.45)
[2020-12-18 05:35] LABS: BASOPHILS % (AUTO) 0.1 % (0.0-3.0); EOSINOPHILS % (AUTO) 0.2 % (0.0-7.0); HEMATOCRIT 37.4 % (42.0-52.0); HEMOGLOBIN 12.1 g/dl (14.0-18.0); IMMATURE GRANULOCYTE # (AUTO) 0.1 (0.0-1.0); IMMATURE GRANULOCYTE % (AUTO) 0.5 % (0.0-5.0); LYMPHOCYTES # (AUTO) 0.6 K/uL (0.60-3.4); LYMPHOCYTES % (AUTO) 5.5 (10.0-50.0); MEAN CORPUSCULAR HEMOGLOBIN 29.5 pg (27.0-31.0); MEAN CORPUSCULAR HGB CONC 32.4 (31.8-35.4); MEAN CORPUSCULAR VOLUME 91.2 fl (80.0-94.0); MONOCYTES # (AUTO) 0.3 K/uL (0.4-2.0); NEUTROPHILS # (AUTO) 10.2 K/ul (2.0-6.9); NEUTROPHILS % (AUTO) 90.7 % (42.2-75.2); PLATELET COUNT 147 10^3/uL (140-440); RDW COEFFICIENT OF VARIATION 13.2 % (11.6-14.8); WHITE BLOOD COUNT 11.25 K/ul (4.2-10.2)
[2020-12-18 05:37] LABS: ALANINE AMINOTRANSFERASE 8.2 U/L (0-50); ALBUMIN 3.35 g/dL (3.5-5.0); ALKALINE PHOSPHATASE 47.9 U/L (56-119); ASPARTATE AMINO TRANSFERASE 23.4 U/L (17-59); BILIRUBIN,TOTAL 0.41 mg/dL (0.2-1.3); BLOOD UREA NITROGEN 29.8 mg/dL (9-20); CALCIUM 9.43 mg/dL (8.4-10.2); CARBON DIOXIDE 38.5 mmol/L (22-30.0); CHLORIDE 97.7 mmol/L (98-107); CREATININE 0.66 mg/dL (0.60-1.10); GLUCOSE 157.2 mg/dL (74-106); POTASSIUM 4.11 mmol/L (3.5-5.1); SODIUM 134.6 mmol/L (134.5-145); TOTAL PROTEIN 6.01 g/dL (6.3-8.2)
[2020-12-18] MEDS: SOLU-MEDROL 125 MG IVP SCH ×4 (05:47→23:39)
[2020-12-18] MEDS: ASPIRIN EC PO SCH (09:26)
[2020-12-18] MEDS: HYZAAR 50-12.5 MG TAB PO SCH (09:26)
[2020-12-18] MEDS: ZITHROMAX PO SCH (09:26)
[2020-12-18] MEDS: CARDIZEM PO SCH ×2 (09:26→20:18)
[2020-12-18] MEDS: LOVENOX SUBCUT SCH (09:27)
[2020-12-18 12:07] LABS: ABG PH 7.44 (7.35-7.45)
[2020-12-18] MEDS: LIPITOR PO SCH (17:20)
[2020-12-18] MEDS: ROCEPHIN 1 GM/50 ML D5W 1 GM/50 ML BAG IV SCH (20:18)
[2020-12-18] MEDS: XANAX PO SCH (20:18)
[2020-12-19 05:11] LABS: BASOPHILS % (AUTO) 0.1 % (0.0-3.0); HEMATOCRIT 35.7 % (42.0-52.0); HEMOGLOBIN 11.2 g/dl (14.0-18.0); IMMATURE GRANULOCYTE % (AUTO) 0.3 % (0.0-5.0); LYMPHOCYTES # (AUTO) 0.4 K/uL (0.60-3.4); LYMPHOCYTES % (AUTO) 3.7 (10.0-50.0); MEAN CORPUSCULAR HEMOGLOBIN 29.9 pg (27.0-31.0); MEAN CORPUSCULAR HGB CONC 31.4 (31.8-35.4); MEAN CORPUSCULAR VOLUME 95.2 fl (80.0-94.0); MONOCYTES # (AUTO) 0.2 K/uL (0.4-2.0); MONOCYTES % (AUTO) 1.9 (0-10); NEUTROPHILS # (AUTO) 9.7 K/ul (2.0-6.9); PLATELET COUNT 131 10^3/uL (140-440); RDW COEFFICIENT OF VARIATION 13.3 % (11.6-14.8); RED BLOOD COUNT 3.75 10^6/ul (4.70-6.10); WHITE BLOOD COUNT 10.33 K/ul (4.2-10.2)
[2020-12-19] MEDS: PULMICORT 1 MG/2 ML NEB SCH ×2 (05:15→21:00)
[2020-12-19] MEDS: DUONEB NEB SCH ×3 (05:15→21:00)
[2020-12-19 05:27] LABS: ALANINE AMINOTRANSFERASE 8.4 U/L (0-50); ALBUMIN 2.77 g/dL (3.5-5.0); ALKALINE PHOSPHATASE 38.7 U/L (56-119); ASPARTATE AMINO TRANSFERASE 21.1 U/L (17-59); BILIRUBIN,TOTAL 0.29 mg/dL (0.2-1.3); BLOOD UREA NITROGEN 32.4 mg/dL (9-20); CALCIUM 9.27 mg/dL (8.4-10.2); CARBON DIOXIDE 37.2 mmol/L (22-30.0); CHLORIDE 99.4 mmol/L (98-107); CREATININE 0.7 mg/dL (0.60-1.10); GLUCOSE 147.6 mg/dL (74-106); POTASSIUM 3.93 mmol/L (3.5-5.1); TOTAL PROTEIN 5.24 g/dL (6.3-8.2)
[2020-12-19] MEDS: SODIUM CHLORIDE 1,000 ML IV SCH ×2 (05:44→20:11)
[2020-12-19] MEDS: SOLU-MEDROL 125 MG IVP SCH ×3 (05:44→18:17)
[2020-12-19 06:46] LABS: ABG PH 7.42 (7.35-7.45)
[2020-12-19] MEDS: LOVENOX SUBCUT SCH (09:11)
[2020-12-19] MEDS: HYZAAR 50-12.5 MG TAB PO SCH (09:12)
[2020-12-19] MEDS: CARDIZEM PO SCH ×2 (09:13→20:11)
[2020-12-19] MEDS: ASPIRIN EC PO SCH (09:13)
[2020-12-19] MEDS: LIPITOR PO SCH (17:20)
[2020-12-19] MEDS ORDERED: OMNICEF PO SCH (18:00)
[2020-12-19] MEDS: XANAX PO SCH (20:11)
[2020-12-20] MEDS: SOLU-MEDROL 125 MG IVP SCH ×2 (00:36→05:37)
[2020-12-20] MEDS: PULMICORT 1 MG/2 ML NEB SCH ×2 (05:00→22:50)
[2020-12-20] MEDS: DUONEB NEB SCH ×3 (05:00→22:50)
[2020-12-20 05:48] LABS: HEMATOCRIT 39.9 % (42.0-52.0); HEMOGLOBIN 12.4 g/dl (14.0-18.0); MEAN CORPUSCULAR HEMOGLOBIN 29.7 pg (27.0-31.0); MEAN CORPUSCULAR HGB CONC 31.1 (31.8-35.4); MEAN CORPUSCULAR VOLUME 95.7 fl (80.0-94.0); PLATELET COUNT 143 10^3/uL (140-440); RDW COEFFICIENT OF VARIATION 13.4 % (11.6-14.8); RED BLOOD COUNT 4.17 10^6/ul (4.70-6.10); WHITE BLOOD COUNT 9.61 K/ul (4.2-10.2)
[2020-12-20 05:53] LABS: ANISOCYTOSIS NOT PRESENT (NOT PRESENT)
[2020-12-20 05:59] LABS: ALANINE AMINOTRANSFERASE 12.9 U/L (0-50); ALBUMIN 3.28 g/dL (3.5-5.0); ALKALINE PHOSPHATASE 41.8 U/L (56-119); ASPARTATE AMINO TRANSFERASE 24.7 U/L (17-59); BILIRUBIN,TOTAL 0.61 mg/dL (0.2-1.3); BLOOD UREA NITROGEN 35.1 mg/dL (9-20); CALCIUM 9.3 mg/dL (8.4-10.2); CREATININE 0.66 mg/dL (0.60-1.10); GLUCOSE 147.3 mg/dL (74-106); POTASSIUM 3.74 mmol/L (3.5-5.1); SODIUM 135.9 mmol/L (134.5-145); TOTAL PROTEIN 5.87 g/dL (6.3-8.2)
--- NOTE | 2020-12-20 09:16 | PN ---
DATE OF SERVICE: 12/16/20 - ADMIT NOTE SUBJECTIVE: 85-year-old white male hospitalized with exacerbation of COPD. The patient has chronic respiratory failure with hypercarbia. The patient is noncompliant. The patient has visited the emergency room a couple of times. Also has been seen in the office a couple of times. Nearly all the times, the patient was recommended to be in the hospital for treatment but he had declined. He is oriented to time, place and person. The son tries his best, but the patient is very stubborn. The patient is noncompliant on followup, recommendations and lifestyle. PHYSICAL EXAMINATION: GENERAL: The patient was oriented to time, place and person, not in much distress. His c02 level was more than 70 to 75 with pH of 7.35. p02 was close to 50 to 55 on admission. HEENT: Head normocephalic, atraumatic. Eyes: Extraocular muscles are intact. Pupils are equal, round and reactive to light and accommodation. Ears: No lesions. Nose appeared normal. Throat: No exudate or erythema. NECK: Supple. No JVD, no carotid bruit. No lymphadenopathy or thyromegaly. LUNGS: Decreased breath sounds with mild wheeze. Percussion note normal. Chest symmetrical. HEART: S1, S2, no S3. No murmurs. No cyanosis or clubbing. No ascites. Pulses: Dorsalis pedis and posterior tibial pulses +1 to +2 bilaterally. ABDOMEN: Soft. Nontender. Bowel sounds active. No CVA tenderness. No mass felt. EXTREMITIES: No edema. Full range of motion of all extremities, equal. NEUROLOGIC: No focal deficit. Cranial nerves II through XII are grossly intact. No headache. No double vision. SKIN: Not dry. Intact. Turgor - normal. LYMPHATIC: No palpable lymph nodes/no lymphedema. MUSCULOSKELETAL: Normal joints with no swelling. Muscle tone is normal. The patient is emaciated, tries to live by himself, unable to take care of himself, refuses [facility] placement or assisted living. ASSESSMENT: 1. Acute exacerbation of COPD with respiratory failure. PLAN: 1. Admit the patient with antibiotics, steroids, nebs. The nurse is trying to convince the patient for more help at home. The patient's prognosis is poor. He is a full code. TIME SPENT: More than 30 minutes. Plan and coordination of the patient's care discussed in the presence of nurse. ZAKIA
--- NOTE | 2020-12-20 09:22 | PCM.PROG ---
Attending Provider: ATTENDING PROVIDER: Dr. BRIANA TORRES This patient is seen with Raina Rodriges, Nurse Practitioner. DATE OF SERVICE: 12/20/20 SUBJECTIVE: This 85 year old /WHITE M was hospitalized 12/16/20. The patient is resting comfortably. BUN is slightly increased. He has slightly good oral input. Creatinine is normal. Shortness of breath has improved. Tolerating the nasal cannula. REVIEW OF SYSTEMS: CONSTITUTIONAL: No night sweats. No fatigue, malaise, lethargy. No fever or chills. Weakness. HEENT: Eyes: No visual changes. No eye pain. No eye discharge. ENT: No runny nose. No epistaxis. No sinus pain. No odynophagia. No congestion. RESPIRATORY: Cough, no congestion. No hemoptysis. Shortness of breath. CARDIOVASCULAR: No angina symptoms. No CHF symptoms. No atypical chest pain for CAD. No palpitations. No orthopnea.. GASTROINTESTINAL: No abdominal pain. No nausea or vomiting. No diarrhea or constipation. No hematemesis. No hematochezia. GENITOURINARY: No urgency. No frequency. No dysuria. No hematuria. No obstructive symptoms. No discharge. No pain. No significant abnormal bleeding. MUSCULOSKELETAL: No musculoskeletal pain; no joint swelling. NEUROLOGICAL: Awake, alert, oriented to time, place and person. No headache. No neck pain. No syncope. No seizures. No dizziness. PSYCHIATRIC: Not anxious. No depression. No suicidal thoughts. No homicidal thoughts. SKIN: No rash. No lesions. No wounds. ENDOCRINE: No unexplained weight loss. No weight gain. HEMATOLOGIC/LYMPHATIC: No anemia. No purpura. No petechiae. No prolonged or excessive bleeding. No palpable lymph nodes. PHYSICAL EXAMINATION: GENERAL: The patient is awake, alert and oriented, lying in bed in no distress. VITAL SIGNS: Temperature 98.8 F, Pulse 74, Respiratory Rate 18, BP 142/72, Pulse Ox 99% HEENT: Head normocephalic, atraumatic. Eyes: Extraocular muscles are intact. Pupils are equal, round and reactive to light and accommodation. Ears: No lesions. Nose appeared normal. Throat: No exudate or erythema. NECK: Supple. No JVD, no carotid bruit. No lymphadenopathy or thyromegaly. LUNGS: Diminished breath sounds. Clear to auscultation. Percussion note normal. Chest symmetrical. HEART: S1, S2, no S3. No murmurs. No cyanosis or clubbing. No ascites. Pulses: Dorsalis pedis and posterior tibial pulses +1 to +2 both sides. ABDOMEN: Soft. Non-tender. Bowel sounds active. No CVA tenderness. No mass felt. EXTREMITIES: No edema. Full range of motion of all extremities, equal. NEUROLOGIC: No focal deficit. Cranial nerves II through XII are grossly intact. No headache. No double vision. SKIN: Not dry. Intact. Turgor-normal. LYMPHATIC: No palpable lymph nodes/no lymphedema. MUSCULOSKELETAL: Normal joints with no swelling. Muscle tone is normal. LAB REVIEW: 12/20/20 05:22 12/20/20 05:22 12/20/20 05:22: Sodium 135.9, Potassium 3.74, Chloride 98.0, Carbon Dioxide 37.0 H, Anion Gap 4.64, BUN 35.1 H, Creatinine 0.66, Estimated GFR (MDRD) 115.00, BUN/Creatinine Ratio 53.18, Glucose 147.3 H, Calcium 9.30, Total Bilirubin 0.61, AST 24.7, ALT 12.9, Alkaline Phosphatase 41.8 L, Total Protein 5.87 L, Albumin 3.28 L, Globulin 2.59, Albumin/Globulin Ratio 1.26 12/20/20 05:22: WBC 9.61, RBC 4.17 L, Hgb 12.4 L, Hct 39.9 L, MCV 95.7 H, MCH 29.7, MCHC 31.1 L, RDW Coeff of Amber 13.4, Plt Count 143, Neutrophils % (Manual) 93.0 H, Lymphocytes % (Manual) 1.0 L, Reactive Lymphocytes 6.0 H, Anisocytosis Not present ASSESSMENT: Please see below. 1. Acute respiratory failure, improved 2. Acute COPD exacerbation 3. Generalized weakness. PLAN: 1. Discontinue Solu-Cortef 2. Prednisone 20mg BID 3. Reduce fluid to KVO Plan and coordination of the patient's care discussed in the presence of [employer] [employer] and nurse. SCRIBED BY: CHIKI MOORE Position Classifier scribed while in presence of service performed by Dr. Torres/Raina Rodriges APRN on 12/20/20 ([id number])
[2020-12-20] MEDS: HYZAAR 50-12.5 MG TAB PO SCH (09:33)
[2020-12-20] MEDS: XANAX PO PRN (09:33)
[2020-12-20] MEDS: ASPIRIN EC PO SCH (09:33)
[2020-12-20] MEDS: CARDIZEM PO SCH ×2 (09:33→20:46)
[2020-12-20] MEDS: OMNICEF PO SCH ×2 (09:34→20:46)
[2020-12-20] MEDS: LOVENOX SUBCUT SCH (09:34)
[2020-12-20] MEDS: SODIUM CHLORIDE 1,000 ML IV SCH ×2 (10:21→12:59)
[2020-12-20] MEDS: PREDNISONE PO SCH ×2 (10:23→17:25)
--- NOTE | 2020-12-20 11:56 | RS.OTINEVL ---
Subjective - Patient information Date of Evaluation: 12/20/20 Date of Arrival on Unit: 12/16/20 Admitted From:: Home Diagnosis: COPD Exacerbation/Urinary retention,Short of Air PRECAUTIONS: Will start dancing or doing silly things that are not safe at any time. Usual Living Arrangement: Alone Living Arrangement Comments: lives alone. with his dog Home Environment: House, Stairs (few) Medical History Comments:: Was on vapotherm in ER. Forgetful. Cannot lie flat. Medications: see chart Subjective Information/ Patient Comments:: "I am cold. I do want to go home and see my girlfriend." - Level of function Prior to this admission, the patient could do the following:: Independent ADL's, Independent Ambulation, Participated in Social Activities Outside home Abilities prior to this admission: Walked with a walker or a cane in the home. Current Level of Function: Partially Dependent Current Equipment Used at Home: LIVES AT HOME ALONE WITH DOG. FAMILY LIVES NEARBY Interventions - Objective Patient Orientation: Person, Place, Time, Situation Current Interventions: IV's, Oxygen, Telemetry Observation: Pt is weak and walks more safely with the RW. Interventions - ROM Right Upper Extremity AROM: Slight limitation Left Upper Extremity AROM: Slight limitation - Strength Right Upper Extremity Strength: Mild Weakness Left Upper Extremity Strength: Mild Weakness Comments:: Pt becomes SOA with exertion. Balance - Sitting Balance Static Sitting Balance: Good Dynamic Sitting Balance: Good - Standing Balance Static Standing Balance: Poor Dynamic Standing Balance: Poor ADL Skills - Self Feeding Self Feeding: Independent - Grooming Grooming: Min Assist - Bathing Bathing UE: Independent Bathing LE: Min Assist - Dressing Dressing UE: Independent Dressing LE: Min Assist - Toilet Management Toileting Management: Min Assist Functional Mobility - Bed Mobility Rolling R/L: Independent Scooting: Independent Supine to Sit: Independent Sit to Supine: Independent - Transfers Sit to Stand: CGA Stand to Sit: CGA Stand Pivot Transfers: CGA - Ambulation Weight Bearing Status: FWB Assistive Device Used: Rolling Walker Assistance needed with Ambulation: Min Assist Comments:: Cues to not act silly and keep the walker on the floor. - Safety Awareness Safety Awareness: Fair JESSE INDEX SCORE: . Additional Treatment Performed - Time with patient Length of Evaluation: 20 Total treatment time: 20 Activities Do you enjoy playing games?: Yes Would you be interested in leaving your room for activities?: Yes Would you enjoy group activities?: Yes Do you have difficulty with your vision?: Yes What types of things do you enjoy doing? Any Hobbies?: Sits with his dog. Patient Interests:: Watching Television Patient Education Patient Education: Education of diagnosis, Home Exercise Program, Home Safety, Education of Plan of Care Teaching Recipient: Patient Teaching Methods: Discussion Assessment Problem List:: Decreased level of function, Requires training/education, Decreased safety/Risk of falls, Weakness Rehab Potential: Good Evaluation Complexity: HISTORY: Medium, EXAM OF BODY SYSTEMS: Medium, CLINICAL DECISION MAKING: Medium Patient's Goal(s): To go home today. Short Term Goals - Goals GOAL 1: Pt to be CGA for sink level ADLS. Goal to be met by: 12/22/20 GOAL 2: Pt to increase BUE strength to 4/5. GOAL 3: Pt to increase dyn. Std. balance to F+. Mcc Goals GOAL 1: Pt to be Mod-I for sink level ADLS. Goal to be met by: 12/23/20 GOAL 2: Pt to increase BUE strength to 4+/5. Goal to be met by: 12/23/20 GOAL 3: Pt to increase dyn. Std. balance to G. Plan Plan of Care: Therapeutic EX, Therapeutic Activity, Self-Care/Home Management Frequency of Treatment: 1-2 X day, as tolerated Duration of Treatment: 1 Week Anticipated Discharge Destination: Home Treatment Diagnosis (ICD 10 Codes): M62.81 Generalized weakness, Z74.1 Need for assistance with personal care. Has the Physician been added for Co-signature?: Yes
--- NOTE | 2020-12-20 13:32 | ECHO2D ---
Date of Exam: 12/18/2020 Ordering Physician: DR. BRIANA TORRES Room #: 108 Reason for Echo: SOB, RESPIRATORY FAILURE, MILD AORTIC STENOSIS Murmurs: SYSTOLIC M-Mode Normal Adult Results LV Dimensions Normal Adult Results AoV Opening excursions >1.6 1.2 LVEDD-base- 3.5-5.8 3.9 Ao root dimensions 2.0-3.7 3.7 LVESD-base- 3.1-4.6 L. Atrium dimensions 1.9-3.8 4.4 Post. Wall thickness 0.8-1.1 1.1 IV septum (thickness) 0.7-1.2 1.5 Post. Wall excursion 0.72-1.3 NORMAL Septal motion NORMAL Systolic motion R. Ventricular cavity 1.5-2.0 3.9 LVEF 60% 77% Paradoxical septal wall motion NORMAL 2-D : MILD PERICARDIAL EFFUSION, --NORMAL LEFT VENTRICLE CONTRACTILITY--ENLARGED LEFT ATRIAL AND RIGHT VENTRICLE CAVITIES--CALCIFIC AORTIC VALVES--MILD AORTIC STENOSIS, NORMAL LEFT VENTRICLE SIZE M-MODE: MV: MILD CALCIFIC MITRAL VALVE ANNULUS AV: CALCIFIC VALVES--MITRAL AORTIC STENOSIS TV: NORMAL PV: NORMAL CHAMBER SIZE: ENLARGED RIGHT VENTRICLE AND LEFT ATRIAL CAVITIES WALL MOTION: NORMAL PERICARDIUM: MILD PERICARDIAL EFFUSION INTERPRETATION: 1. SUBCOSTAL APPROACH--SEVERE COPD 2. ENLARGED RIGHT VENTRICLE AND LEFT ATRIAL CAVITIES 3. CALCIFIC MITRAL VALVE ANNULUS/ CALCIFIC AORTIC VALVE 4. MILD AORTIC STENOSIS 5. MILD PERICARDIAL EFFUSION 6. NORMAL LEFT VENTRICLE CONTRACTILITY MTDD
--- NOTE | 2020-12-20 13:46 | RS.PTINEVL ---
Subjective - Patient information Date of Evaluation: 12/20/20 Date of Arrival on Unit: 12/16/20 Admitted From:: Home Diagnosis: balance impaired, difficulty walking, acute resp failure Usual Living Arrangement: Alone Home Environment: House, Stairs (few), No rail Medical History: COPD (severe), Dementia Medical History Comments:: CKD, anxiety, aortic stenosis, anemia, LATEX ALLERGY?: No Medications: see chart Subjective Information/ Patient Comments:: pt states that he wants to go home. He states that he is cold. - Level of function Prior to this admission, the patient could do the following:: Independent ADL's, Independent Ambulation, Participated in Social Activities Outside home Current Level of Function: Partially Dependent Current Equipment Used at Home: LIVES AT HOME ALONE WITH DOG. FAMILY LIVES NEARBY Interventions - Objective Patient Orientation: Person, Place Current Interventions: IV's, Oxygen (2 liters), Telemetry Range of Motion - ROM Right Upper Extremity AROM: WFL's Left Upper Extremity AROM: WFL's Right Lower Extremity AROM: WFL's Left Lower Extremity AROM: WFL's Muscle Strength - Muscle Strength Right Upper Extremity Strength: Mild Weakness (grossly 4/5) Left Upper Extremity Strength: Mild Weakness (grossly 4/5) Right Lower Extremity Strength: Mild Weakness (hip flex 4-/5, knee flex/ext 4/5, ankle Df/PF 4/5) Left Lower Extremity Strength: Mild Weakness (hip flex 4-/5, knee flex/ext 4/5, ankle Df/PF 4/5) Sensation - Sensation Right Upper Extremity Sensation: Intact/Normal Left Upper Extremity Sensation: Intact/Normal Right Lower Extremity Sensation: Intact/Normal Left Lower Extremity Sensation: Intact/Normal Palpation Palpation Findings: None/Normal Balance - Sitting Balance and Reactions Static Sitting Balance: Fair Dynamic Sitting Balance: Fair - Standing Balance and Reactions Static Standing Balance: Poor Dynamic Standing Balance: Poor Standing Equilibrium Reactions: Delayed Left, Delayed Right Standing Protective Reactions: Delayed Left, Delayed Right Functional Mobility - Bed Mobility Rolling R/L: Min Assist Supine to Sit: Min Assist Sit to Supine: CGA - Transfers Sit to Stand: CGA Stand to Sit: CGA - Safety Awareness Safety Awareness: Fair JESSE INDEX SCORE: n/a Ambulation - Ambulation Assistive Device Used: Rolling Walker Orthotic/Prosthetic Device: No Distance: 110ft Assistance needed with Ambulation: CGA, Min Assist Quality of Ambulation: pt is impulsive, stopping to "dance" and to lift leg to pass gas while walking. Gait Deviations: Forward posture, Short stride, Deviates from path (questionably on purpose) Factors Affecting Ambulation: Decreased Balance, Breathing/O2 Saturation, Weakness, Decreased Safety, Cognitive Status, Limited Endurance Treatment time - Units charged Gait trainin - Time with patient Length of Evaluation: 18 Total treatment time: 32 Patient Education - Education Patient Education: Activity Modification, Education of Plan of Care Teaching Recipient: Patient Teaching Methods: Discussion, Demonstration Assessment - Assessment Problem List:: Decreased level of function, Requires training/education, Decreased safety/Risk of falls, Weakness, Cognitive status limits abilities Rehab Potential: Good Further Therapy Indicated?: Yes Candidate for Swing Bed for Therapy Services?: Feel pt may not be a candidate for swing bed for therapy due to higher level of function as well as questionable whether patient would participate. Evaluation Complexity: HISTORY: Medium, EXAM OF BODY SYSTEMS: Medium, CLINICAL PRESENTATION: Medium, CLINICAL DECISION MAKING: Medium Patient's Goal(s): " I want to go home" Short Term Goals GOAL #1: pt independent with rolling and scooting in bed. Goal to be met by: 12/22/20 GOAL #2: Transfer sup to/from sit CGA Goal to be met by: 12/22/20 GOAL #3: Sit to/from stand CGA Goal to be met by: 12/22/20 GOAL #4: pt amb 110ft with rwx CGA with no LOB. Goal to be met by: 12/22/20 GOAL #5: Improve LE strength 4 to 4+/5 Goal to be met by: 12/22/20 Usp Goals GOAL #1: pt amb functional household distances with rwx SBA Goal to be met by: 12/24/20 GOAL #2: Transfer sup to/from sit to /from stand SBA Goal to be met by: 12/24/20 GOAL #3: Improve dyn stand balance to fair Goal to be met by: 12/24/20 Plan Plan of Care: Therapeutic EX, Therapeutic Activity Other:: gait training Frequency of Treatment: 1-2 X day, as tolerated Duration of Treatment: 5 days Anticipated Discharge Destination: Home Treatment Diagnosis (ICD 10 Codes): difficulty walking R 26.2. balance impaired R 26.81. weakness M62.81 Has the Physician been added for Co-signature?: Yes
[2020-12-20] MEDS: LIPITOR PO SCH (17:25)
[2020-12-20] MEDS: XANAX PO SCH (20:46)
[2020-12-21] MEDS: PULMICORT 1 MG/2 ML NEB SCH (04:50)
[2020-12-21] MEDS: DUONEB NEB SCH (04:50)
[2020-12-21 05:56] VITALS: BP 145/69; TEMP 97.8
[2020-12-21 06:10] LABS: HEMATOCRIT 38.4 % (42.0-52.0); MEAN CORPUSCULAR HEMOGLOBIN 29.7 pg (27.0-31.0); MEAN CORPUSCULAR HGB CONC 31.3 (31.8-35.4); PLATELET COUNT 94 10^3/uL (140-440); RDW COEFFICIENT OF VARIATION 13.5 % (11.6-14.8); RED BLOOD COUNT 4.04 10^6/ul (4.70-6.10); WHITE BLOOD COUNT 9.64 K/ul (4.2-10.2)
[2020-12-21 06:17] LABS: ANISOCYTOSIS NOT PRESENT (NOT PRESENT)
[2020-12-21 06:25] LABS: ALANINE AMINOTRANSFERASE 14.1 U/L (0-50); ALBUMIN 2.9 g/dL (3.5-5.0); ALKALINE PHOSPHATASE 40.7 U/L (56-119); ASPARTATE AMINO TRANSFERASE 22.1 U/L (17-59); BILIRUBIN,TOTAL 0.38 mg/dL (0.2-1.3); CALCIUM 9.62 mg/dL (8.4-10.2); CARBON DIOXIDE 38.8 mmol/L (22-30.0); CHLORIDE 98.6 mmol/L (98-107); CREATININE 0.72 mg/dL (0.60-1.10); POTASSIUM 3.75 mmol/L (3.5-5.1); SODIUM 135.6 mmol/L (134.5-145); TOTAL PROTEIN 5.28 g/dL (6.3-8.2)
--- NOTE | 2020-12-21 08:44 | HP ---
DATE OF SERVICE: 12/16/20 HISTORY OF PRESENT ILLNESS: 85-year-old white male who presented to the Emergency Department with shortness of breath, poor appetite, not eating or drinking. PAST MEDICAL HISTORY: Includes chronic respiratory failure Chronic bronchitis B12 deficiency Severe COPD, oxygen dependent Chronic anemia Early dementia Aortic stenosis History of asthma Hypertension Dyslipidemia Severe atherosclerotic heart disease Carotid stenosis, right carotid 50 to 60% Dependent leg edema History of noncompliance with medications, followup, diet and lifestyle PAST SURGICAL HISTORY: Appendectomy years ago REVIEW OF SYSTEMS: CONSTITUTIONAL: No night sweats. No fatigue, malaise, lethargy. No fever or chills. HEENT: Eyes: No visual changes. No eye pain. No eye discharge. ENT: No runny nose. No epistaxis. No sinus pain. No sore throat. No odynophagia. No ear pain. No congestion. RESPIRATORY: No hemoptysis. Positive for shortness of breath, cough and wheezing. CARDIOVASCULAR: No angina symptoms. No CHF symptoms. No atypical chest pain for CAD. No palpitations. No PND. No orthopnea. GASTROINTESTINAL: Decreased appetite. No abdominal pain. No nausea or vomiting. No diarrhea or constipation. No hematemesis. No hematochezia. GENITOURINARY: No urgency. No frequency. No dysuria. No hematuria. No obstructive symptoms. No discharge. No pain. No significant abnormal bleeding. MUSCULOSKELETAL: No musculoskeletal pain. No joint swelling. No arthritis. NEUROLOGICAL: No headache. No neck pain. No syncope. No seizures. No dizziness. PSYCHIATRIC: Increased confusion. Not anxious. No depression. No suicidal thoughts. No homicidal thoughts. SKIN: No rash. No lesions. No wounds. ENDOCRINE: No unexplained weight loss. No weight gain. HEMATOLOGIC/LYMPHATIC: No anemia. No purpura. No petechiae. No prolonged or excessive bleeding. No palpable lymph nodes. PERSONAL/FAMILY/SOCIAL HISTORY: He is . He currently lives by himself. No alcohol or ilicit drug use. He is a former smoker. MEDICATIONS: Aspirin 81 mg p.o. daily Alprazolam 0.25 mg p.o. bedtime Losartan-Hydrochlorothiazide 50-12.5 mg one tablet p.o. daily Diltiazem 60 mg p.o. q.12hr Potassium Chloride (K-Dur) 20 mEq p.o. daily Atorvastatin 20 mg p.o. q.p.m. ALLERGIES: NKDA PHYSICAL EXAMINATION: GENERAL: Alert and oriented to person, not place or time. VITAL SIGNS: Temperature 98, heart rate 86, respirations 20, blood pressure 147/65, pulse ox 86%. HEENT: Head normocephalic, atraumatic. Eyes: Extraocular muscles are intact. Pupils are equal, round and reactive to light and accommodation. Ears: No lesions. Nose appeared normal. Throat: No exudate or erythema. NECK: Supple. No JVD, no carotid bruit. No lymphadenopathy or thyromegaly. LUNGS: Diminished breath sounds bilaterally. Bilaterally coarse with inspiratory and expiratory wheezing. Percussion note normal. Chest symmetrical. HEART: S1, S2, no S3. No murmur. No cyanosis or clubbing. No ascites. Pulses: Dorsalis pedis and posterior tibial pulses +1 to +2 bilaterally. ABDOMEN: Soft. Nontender. Bowel sounds active. No CVA tenderness. No mass felt. EXTREMITIES: No edema. Full range of motion of all extremities, equal. NEUROLOGIC: No focal deficit. Cranial nerves II through XII are grossly intact. No headache, no double vision or headache. SKIN: Not dry. Intact. Turgor - normal. LYMPHATIC: No palpable lymph nodes/no lymphedema. MUSCULOSKELETAL: Normal joints with no swelling. Muscle tone is normal. LABS: White count 6.3, hemoglobin 13.5, hematocrit 46.5. Sodium 139, potassium 5.12, c02 41, BUN 23.9, creatinine 0.73, glucose 103, uric acid 5.59, troponin less than 0.01. Initial ABGs on 2L: 02 sat 98.5, pH 7.3, pc02 94, p02 125, bicarb 46.3, total c02 49.2. Respiratory panel by PCR is negative. Urine shows trace protein, 1+ glucose, 1+ ketones. Chest x-ray shows no acute findings, changes associated with COPD. ASSESSMENT: 1. Shortness of breath. 2. Severe COPD with c02 retention. 3. Hyperkalemia. 4. Hypertension. 5. Aortic stenosis. 6. Chronic respiratory failure. 7. B12 deficiency. 8. Chronic anemia. 9. Dementia. 10. Coronary artery disease. 11. Dependent leg edema. PLAN: 1. We will admit. 2. Routine telemetry orders. 3. CBC, CMP daily. 4. Start Vapotherm. 5. Repeat ABGs in one hour. 6. Rocephin 1 gm IV daily. 7. Zithromax 500 mg p.o. daily. 8. Start Solu-Cortef 125 mg IV q.6hr. 9. Regular diet. 10. Continue all home medications. 11. Will follow closely. TIME SPENT: More than 70 minutes. MTDD
--- NOTE | 2020-12-21 08:56 | PCM.PROG ---
Attending Provider: ATTENDING PROVIDER: Dr. BRIANA TORRES This patient is seen with Raina Rodriges, Nurse Practitioner. DATE OF SERVICE: 12/21/20 SUBJECTIVE: This 85 year old /WHITE M was hospitalized 12/16/20. The patient is resting comfortably. He has been up and about walking. he tolerated the decrease in steroids. He is alert and oriented this morning. Ready to be discharged. REVIEW OF SYSTEMS: CONSTITUTIONAL: No night sweats. No fatigue, malaise, lethargy. No fever or chills. Weakness. HEENT: Eyes: No visual changes. No eye pain. No eye discharge. ENT: No runny nose. No epistaxis. No sinus pain. No odynophagia. No congestion. RESPIRATORY: No cough, no congestion. No hemoptysis. Shortness of breath. CARDIOVASCULAR: No angina symptoms. No CHF symptoms. No atypical chest pain for CAD. No palpitations. No orthopnea.. GASTROINTESTINAL: No abdominal pain. No nausea or vomiting. No diarrhea or constipation. No hematemesis. No hematochezia. GENITOURINARY: No urgency. No frequency. No dysuria. No hematuria. No obstructive symptoms. No discharge. No pain. No significant abnormal bleeding. MUSCULOSKELETAL: No musculoskeletal pain; no joint swelling. NEUROLOGICAL: Awake, alert, oriented to time, place and person. No headache. No neck pain. No syncope. No seizures. No dizziness. PSYCHIATRIC: Not anxious. No depression. No suicidal thoughts. No homicidal thoughts. SKIN: No rash. No lesions. No wounds. ENDOCRINE: No unexplained weight loss. No weight gain. HEMATOLOGIC/LYMPHATIC: No anemia. No purpura. No petechiae. No prolonged or excessive bleeding. No palpable lymph nodes. PHYSICAL EXAMINATION: GENERAL: The patient is awake, alert and oriented, lying in bed in no distress. VITAL SIGNS: Temperature 97.8 F, Pulse 63, Respiratory Rate 18, BP 145/69, Pulse Ox 99% HEENT: Head normocephalic, atraumatic. Eyes: Extraocular muscles are intact. Pupils are equal, round and reactive to light and accommodation. Ears: No lesions. Nose appeared normal. Throat: No exudate or erythema. NECK: Supple. No JVD, no carotid bruit. No lymphadenopathy or thyromegaly. LUNGS: Diminished breath sounds. Clear to auscultation. Percussion note normal. Chest symmetrical. HEART: S1, S2, no S3. No murmurs. No cyanosis or clubbing. No ascites. Pulses: Dorsalis pedis and posterior tibial pulses +1 to +2 both sides. ABDOMEN: Soft. Non-tender. Bowel sounds active. No CVA tenderness. No mass felt. EXTREMITIES: No edema. Full range of motion of all extremities, equal. NEUROLOGIC: No focal deficit. Cranial nerves II through XII are grossly intact. No headache. No double vision. SKIN: Not dry. Intact. Turgor-normal. LYMPHATIC: No palpable lymph nodes/no lymphedema. MUSCULOSKELETAL: Normal joints with no swelling. Muscle tone is normal. LAB REVIEW: 12/21/20 05:55 12/21/20 05:55 12/21/20 05:55: WBC 9.64, RBC 4.04 L, Hgb 12.0 L, Hct 38.4 L, MCV 95.0 H, MCH 29.7, MCHC 31.3 L, RDW Coeff of Amber 13.5, Plt Count 94 L D, Neutrophils % (Man ual) 90.0 H, Lymphocytes % (Manual) 3.0 L, Monocytes % (Manual) 7.0, Anisocytosis Not present 12/21/20 05:55: Sodium 135.6, Potassium 3.75, Chloride 98.6, Carbon Dioxide 38.8 H, Anion Gap 1.95, BUN 34.0 H, Creatinine 0.72, Estimated GFR (MDRD) 104.00, BUN/Creatinine Ratio 47.22, Glucose 131.0 H, Calcium 9.62, Total Bilirubin 0.38, AST 22.1, ALT 14.1, Alkaline Phosphatase 40.7 L, Total Protein 5.28 L, Albumin 2.90 L, Globulin 2.38, Albumin/Globulin Ratio 1.21 ASSESSMENT: Please see below. 1. Acute COPD exacerbation 2. Chronic respiratory failure with CO2 retention 3. Anxiety 4. Generalized weakness. PLAN: 1. Discharge home 2. DUO NEBS 3. Pulmicort 1mg at night time 4. Omnicef BID for 5 days 5. Prednisone 20mg BID for 3 days then daily for 4 days 6. The patient would benefit from Home Health for PT and OT 7. We will see him back in the office next week. Plan and coordination of the patient's care discussed in the presence of Utilization Management Manager and nurse. SCRIBED BY: CHIKI MOORE, Carpet Sewing Machine Operator scribed while in presence of service performed by Dr. Torres/Raina Rodriges APRN on 12/21/20 (0800)
[2020-12-21] MEDS: PREDNISONE PO SCH (09:01)
[2020-12-21] MEDS: LOVENOX SUBCUT SCH (09:01)
[2020-12-21] MEDS: HYZAAR 50-12.5 MG TAB PO SCH (09:01)
[2020-12-21] MEDS: OMNICEF PO SCH (09:01)
[2020-12-21] MEDS: CARDIZEM PO SCH (09:01)
[2020-12-21] MEDS: ASPIRIN EC PO SCH (09:01)
[2020-12-21] MEDS ORDERED: DUONEB NEB ONE (09:56)
[2020-12-21] MEDS: XANAX PO PRN (10:11)
--- NOTE | 2020-12-21 10:32 | PN ---
DATE OF SERVICE: 12/18/20 SUBJECTIVE: 85-year-old white male hospitalized with acute exacerbation of COPD. The patient has end-stage chronic lung disease with fluid retention, chronic respiratory acidosis which is well compensated. The patient says he is breathing better. He is gaining strength. Appetite has improved. REVIEW OF SYSTEMS: CONSTITUTIONAL: No night sweats. No fatigue, malaise, lethargy. No fever or chills. HEENT: Eyes: No visual changes. No eye pain. No eye discharge. ENT: No runny nose. No epistaxis. No sinus pain. No sore throat. No odynophagia. No congestion. RESPIRATORY: No cough, no congestion. No hemoptysis. Shortness of breath on minimal exertion. CARDIOVASCULAR: No angina symptoms. No CHF symptoms. No atypical chest pain for CAD. No palpitations. No PND. No orthopnea. GASTROINTESTINAL: No abdominal pain. No nausea or vomiting. No diarrhea or constipation. No hematemesis. No hematochezia. GENITOURINARY: No urgency. No frequency. No dysuria. No hematuria. No obstructive symptoms. No discharge. No pain. No significant abnormal bleeding. MUSCULOSKELETAL: No musculoskeletal pain; no joint swelling. NEUROLOGICAL: No headache. No neck pain. No syncope. No seizures. No dizziness. PSYCHIATRIC: Not anxious. No depression. No suicidal thoughts. No homicidal thoughts. SKIN: No rash. No lesions. No wounds. ENDOCRINE: No unexplained weight loss. No weight gain. HEMATOLOGIC/LYMPHATIC: No anemia. No purpura. No petechiae. No prolonged or excessive bleeding. No palpable lymph nodes. PHYSICAL EXAMINATION: VITAL SIGNS: Temperature 98.1, pulse 60, respiratory rate 20, blood pressure 145/68, pulse ox 97%. HEENT: Head normocephalic, atraumatic. Eyes: Extraocular muscles are intact. Pupils are equal, round and reactive to light and accommodation. Ears: No lesions. Nose appeared normal. Throat: No exudate or erythema. NECK: Supple. No JVD, no carotid bruit. No lymphadenopathy or thyromegaly. LUNGS: Decreased breath sounds. Clear to auscultation. Percussion note normal. Chest symmetrical. HEART: S1, S2, no S3. No murmurs. No cyanosis or clubbing. No ascites. Pulses: Dorsalis pedis and posterior tibial pulses +1 to +2 bilaterally. ABDOMEN: Soft. Nontender. Bowel sounds active. No CVA tenderness. No mass felt. EXTREMITIES: No edema. Full range of motion of all extremities, equal. NEUROLOGIC: No focal deficit. Cranial nerves II through XII are grossly intact. No headache. No double vision. SKIN: Not dry. Intact. Turgor - normal. LYMPHATIC: No palpable lymph nodes/no lymphedema. MUSCULOSKELETAL: Normal joints with no swelling. Muscle tone is normal. LABS: Hemoglobin 12, hematocrit 37, WBC 11,000, normal differential. Creatinine 0.6, BUN 29, potassium 4.1. ABGs showed pH 7.49 with p02 of 97 with pc02 of 49, 93% saturation on FI02 of 28% on Vapotherm. ASSESSMENT: 1. Respiratory failure seems to be compensated with less carbia. The patient's overall respiratory status seems to have improved. PLAN: 1. Continue steroids, antibiotics and Vapotherm. 2. Encourage the patient to eat. The patient is underweight and has lost a lot of weight lately. BMI is 17. He is very stubborn. He is a full code. He is dependent, not able to take care of himself but still living by himself. The family wants to help him but he doesn't want anybody's interference in his own life. TIME SPENT: More than 30 minutes. Plan and coordination of the patient's care discussed in the presence of nurse. ZAKIA
--- NOTE | 2020-12-21 10:45 | PN ---
DATE OF SERVICE: 12/19/20 SUBJECTIVE: 85-year-old white male hospitalized with acute exacerbation of COPD with respiratory failure. The patient had lost at least 10 to 15 lbs in the past 2 to 3 months. He lives by himself, unable to take care of himself. Overall, respiratory status has deteriorated. The patient's condition has improved remarkably. The patient says that his appetite has improved, breathing somewhat better. Arterial blood gases have improved with 2L now. The patient's p02 is 60, pc02 54, pH 7.44 with 92% saturation. He is weaned off Vapotherm now. Blood gases practically as good. PHYSICAL EXAMINATION: GENERAL: The patient is oriented to time, place and person. VITAL SIGNS: Temperature 97.4, pulse 75, respiratory rate 18, blood pressure 130/58, pulse ox 97% on 2L. HEENT: Head normocephalic, atraumatic. Eyes: Extraocular muscles are intact. Pupils are equal, round and reactive to light and accommodation. Ears: No lesions. Nose appeared normal. Throat: No exudate or erythema. NECK: Supple. No JVD, no carotid bruit. No lymphadenopathy or thyromegaly. LUNGS: Clear to auscultation. Percussion note normal. Chest symmetrical. HEART: S1, S2, no S3. No murmurs. No cyanosis or clubbing. No ascites. Pulses: Dorsalis pedis and posterior tibial pulses +1 to +2 bilaterally. ABDOMEN: Soft. Nontender. Bowel sounds active. No CVA tenderness. No mass felt. EXTREMITIES: No edema. Full range of motion of all extremities, equal. NEUROLOGIC: No focal deficit. Cranial nerves II through XII are grossly intact. No headache. No double vision. SKIN: Not dry. Intact. Turgor - normal. LYMPHATIC: No palpable lymph nodes/no lymphedema. MUSCULOSKELETAL: Normal joints with no swelling. Muscle tone is normal. LABS: Hemoglobin 11.2, hematocrit 35, WBC 10,000, creatinine .07, BUN 32, potassium 3.9. ASSESSMENT: 1. Respiratory failure, chronic. His oxygenation seems to have improved. 2. 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 PLAN: 1. Continue antibiotics, steroids, nebs. 2. The patient lives by himself, needs more attention. The patient makes arrangement for his own breakfast and lunch. He meets them outside. In the hospital he is doing very well as far as food intake is concerned. 3. Echocardiogram showed normal LV contractility and markedly enlarged RV cavity. CONDITION: Stable TIME SPENT: More than 30 minutes. Plan and coordination of the patient's care discussed in the presence of nurse. ZAKIA
--- NOTE | 2020-12-21 12:05 | CM.DICTOOL ---
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 TO 60% CAD DEPENDENT LEG EDEMA HISTORY OF NONCOMPLIANCE WITH MEDICATIONS,FOLLOWUP,DIET AND LIFESTYLE SURGICAL: APPENDECTOMY LAST VITALS Temp Pulse Resp BP Pulse Ox 97.8 F 63 18 145/69 H 96 12/21/20 05:55 12/21/20 05:55 12/21/20 05:55 12/21/20 05:55 12/21/20 10:00 TAKE THESE MEDICATIONS AT HOME Albuterol/Ipratropium (Ipratropium/Albuterol Vial.Neb) 3 ml NEB TID -- ( NEW) Last Admin: 12/21/20 04:50 Dose: 3 ml Documented by: Alprazolam (Alprazolam 0.25 Mg Tablet) 0.25 mg PO BEDTIME [facility] Last Admin: 12/20/20 20:46 Dose: 0.25 mg Documented by: Aspirin (Aspirin 81 Mg Tablet.) 81 mg PO DAILYWM [facility] Last Admin: 12/21/20 09:01 Dose: 81 mg Documented by: Atorvastatin Calcium (Atorvastatin Calcium 20 Mg Tablet) 20 mg PO QPM [facility] Last Admin: 12/20/20 17:25 Dose: 20 mg Documented by: Budesonide (Budesonide 1 Mg/2 Ml Vial.Neb) 0.5 mg NEB @ BEDTIME AND IN THE AM -- ( NEW) Last Admin: 12/21/20 04:50 Dose: 1 mg Documented by: Cefdinir (Cefdinir 300 Mg Capsule) 300 mg PO BID X 5 MORE DAYS -- (NEW) Stop: 12/23/20 08:59 Last Admin: 12/21/20 09:01 Dose: 300 mg Documented by: Diltiazem HCl (Diltiazem Hcl 60 Mg Tablet) 60 mg PO Q12HR [facility] Last Admin: 12/21/20 09:01 Dose: 60 mg Documented by: HCTZ/Losartan Potassium (Losartan/Hydrochlorothiazide 50/12.5 Mg Tab) 1 tab PO DAILY [facility] Last Admin: 12/21/20 09:01 Dose: 1 tab Documented by: Prednisone (Prednisone 20 Mg Tablet) 20 mg PO BIDWM X 3 MORE DAYS, THEN 20 MG D AILY X 4 DAYS, THEN DISCONTINUE -- ( NEW) Last Admin: 12/21/20 09:01 Dose: 20 mg Documented by: ALLERGIES No Known Allergies Allergy (Verified 12/16/20 13:14) DISCONTINUED MEDICATIONS 1). Potassium Chloride 20 MEQ PO DAILY NEW PRESCRIPTIONS: OMNICEF 300MG PO BID X 5 DAYS PREDNISONE 20 MG PO BID X 3 DAYS THEN 20 MG DAILY X 4 , THEN DISCONTINUE DUONEB TID PULMICORT NEBULIZER 0.5 MG IN THE AM AND @ BEDTIME SMOKING: N/A DISEASE SPECIFIC EDUCATION: COPD PO STERIODS HOME OXYGEN HOME NEBULIZERS ACTIVITY/FALL PRECAUTIONS NO DRIVING FOR NOW COVID 19 LAB REVIEW: 12/21/20 05:55 12/21/20 05:55 12/21/20 05:55: WBC 9.64, RBC 4.04 L, Hgb 12.0 L, Hct 38.4 L, MCV 95.0 H, MCH 29.7, MCHC 31.3 L, RDW Coeff of Amber 13.5, Plt Count 94 L D, Neutrophils % (Manual) 90.0 H, Lymphocytes % (Manual) 3.0 L, Monocytes % (Manual) 7.0, Anisocytosis Not present 12/21/20 05:55: Sodium 135.6, Potassium 3.75, Chloride 98.6, Carbon Dioxide 38.8 H, Anion Gap 1.95, BUN 34.0 H, Creatinine 0.72, Estimated GFR (MDRD) 104.00, BUN/Creatinine Ratio 47.22, Glucose 131.0 H, Calcium 9.62, Total Bilirubin 0.38, AST 22.1, ALT 14.1, Alkaline Phosphatase 40.7 L, Total Protein 5.28 L, Albumin 2.90 L, Globulin 2.38, Albumin/Globulin Ratio 1.21 PLAN: DISCHARGE HOME: LIVES ALONE AND [facility] TO FOLLOW UP WITH SN, PT AND OT - CONTACTED [facility] - NOTIFIED [facility] [facility] [facility] - DALLIN NOTIFIED HAS A SON AND DTR THAT ALSO CHECKS ON HIM ACTIVITY: UP WITH WALKER DIRECTED PER THERAPY, FREQUENT REST PERIODS. FALL PRECAUTIONS NO DRIVING UNTIL SEE DR. TORRES AT OFFICE VISIT SOCIAL DISTANCING PRECAUTIONS OXYGEN: 2 LITERS A MINUTE PER NASAL CANNULA CONTINUOS - PROVIDED BY LEGACY OXYGEN PRECAUTIONS DIET: REGULAR MD FOLLOWUP : SEE DR. TORRES/ SAELEM BRANTLEY APRN/ LESLIE MIRANDA APRN IN THE OFFICE ON WEDNESDAY, DECEMBER 27 @ 2:45 PM CODE STATUS: FULL CODE MR JAY IS ALERT AND ORIENTED X 4. HE HAS SOME FORGETFULNESS. USES OXYGEN @ 2 L/M CONTINUOS. HAS USED NEBULIZERS HERE AND HAS MACHINE AT HOME. SKIN IS WARM AND DRY AND INTACT. HE GETS UP WITH A WALKER. IS CONTINENT OF BOWEL AND BLADDER. MR. JAY STATED HE HAS NO ABDOMINAL DISCOMFORT, NO NAUSEA. LAST BM 12/15/2020. REFUSED ANY TYPE OF LAXATIVE. HE STATED I DONT HAVE PROBLEMS WITH MY BOWELS, I WENT A FEW DAYS AGO. NUTRITIONAL AND FLUID INTAKE IS FAIR. HE WANTS TO GO HOME AND LIVE ALONE WITH HIS DOG. INSTRUCTED NOT TO DRIVE UNTIL RELEASED BY . MD SALEEM DELUCA APRN ALYCE HANNAN, APRN
--- NOTE | 2020-12-21 13:14 | PN ---
DATE OF SERVICE: 12/20/2020 SUBJECTIVE: The patient was seen and examined with the Nurse Practitioner. The patient's condition is improving. His pO2 is staying higher than usual still with two liters, stays around pO2 of 60. Saturation is 90-92% His appetite has improved. Overall cardiovascular and respiratory status is stable for now. The patient is refusing to go to Assisted Living or Senior Living. He is oriented to time, place and person. TIME SPENT: More than 30 minutes. Plan and coordination of the patient's care discussed in the presence of nurse. ZAKIA
--- NOTE | 2020-12-21 13:35 | PN ---
DATE OF SERVICE: 12/17/20 SUBJECTIVE: The patient was seen and examined with the nurse practitioner. The patient's condition seems to be improving. His blood gases, p02 of 99 with pc02 of 60 with pH of 7.42 with 97% saturation on Vapotherm, FI02 of 32%. He is feeling a little better, he wants to go home. I told him he needs a couple days of treatment with oxygen and steroid to improve his respiratory status. Condition improving. TIME SPENT: More than 30 minutes. Plan and coordination of the patient's care discussed in the presence of nurse. ZAKIA
--- NOTE | 2020-12-23 11:22 | DS ---
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 SEVERE COPD, OXYGEN DEPENDENT CHRONIC ANEMIA EARLY DEMENTIA AORTIC STENOSIS HYPERTENSION ASTHMA DYSLIPIDEMIA SEVERE ATHEROSCLEROTIC HEART DISEASE RIGHT CAROTID STENOSIS 50 TO 60% CAD DEPENDENT LEG EDEMA HISTORY OF NONCOMPLIANCE WITH MEDICATIONS,FOLLOWUP,DIET AND LIFESTYLE SURGICAL: APPENDECTOMY LAST VITALS: Temp Pulse Resp BP Pulse Ox 97.8 F 63 18 145/69 H 96 12/21/20 05:55 12/21/20 05:55 12/21/20 05:55 12/21/20 05:55 12/21/20 10:00 DISCHARGE INSTRUCTIONS: DISCHARGE HOME: LIVES ALONE AND [facility] TO FOLLOW UP WITH SN, PT AND OT - CONTACTED [facility], [facility] - NOTIFIED [facility], [facility] [facility] - DALLNI NOTIFIED, HAS A SON AND DTR THAT ALSO CHECKS ON HIM. OXYGEN: 2 LITERS A MINUTE PER NASAL CANNULA CONTINUOS - PROVIDED BY [facility]. OXYGEN PRECAUTIONS. MD FOLLOWUP : SEE DR. TORRES/ SALEEM BRANTLEY APRN/ LESLIE MIRANDA APRN IN THE OFFICE ON WEDNESDAY, DECEMBER 27 @ 2:45 PM. CODE STATUS: FULL CODE. TAKE THESE MEDICATIONS AT HOME: Albuterol/Ipratropium (Ipratropium/Albuterol Vial.Neb) 3 ml NEB TID -- ( NEW) Last Admin: 12/21/20 04:50 Dose: 3 ml Documented by: Alprazolam (Alprazolam 0.25 Mg Tablet) 0.25 mg PO BEDTIME [facility] Last Admin: 12/20/20 20:46 Dose: 0.25 mg Documented by: Aspirin (Aspirin 81 Mg Tablet.) 81 mg PO DAILYWM [facility] Last Admin: 12/21/20 09:01 Dose: 81 mg Documented by: Atorvastatin Calcium (Atorvastatin Calcium 20 Mg Tablet) 20 mg PO QPM [facility] Last Admin: 12/20/20 17:25 Dose: 20 mg Documented by: Budesonide (Budesonide 1 Mg/2 Ml Vial.Neb) 0.5 mg NEB @ BEDTIME AND IN THE AM -- ( NEW) Last Admin: 12/21/20 04:50 Dose: 1 mg Documented by: Cefdinir (Cefdinir 300 Mg Capsule) 300 mg PO BID X 5 MORE DAYS -- (NEW) Stop: 12/23/20 08:59 Last Admin: 12/21/20 09:01 Dose: 300 mg Documented by: Diltiazem HCl (Diltiazem Hcl 60 Mg Tablet) 60 mg PO Q12HR [facility] Last Admin: 12/21/20 09:01 Dose: 60 mg Documented by: HCTZ/Losartan Potassium (Losartan/Hydrochlorothiazide 50/12.5 Mg Tab) 1 tab PO DAILY [facility] Last Admin: 12/21/20 09:01 Dose: 1 tab Documented by: Prednisone (Prednisone 20 Mg Tablet) 20 mg PO BIDWM X 3 MORE DAYS, THEN 20 MG DAILY X 4 DAYS, THEN DISCONTINUE -- ( NEW) Last Admin: 12/21/20 09: Dose: 20 mg Documented by: ALLERGIES: No Known Allergies Allergy (Verified 12/16/20 13:14) DISCONTINUED MEDICATIONS: 1). Potassium Chloride 20 MEQ PO DAILY NEW PRESCRIPTIONS: OMNICEF 300MG PO BID X 5 DAYS PREDNISONE 20 MG PO BID X 3 DAYS THEN 20 MG DAILY X 4 , THEN DISCONTINUE DUONEB TID PULMICORT NEBULIZER 0.5 MG IN THE AM AND @ BEDTIME SMOKING: N/A DISEASE SPECIFIC EDUCATION: COPD PO STEROIDS HOME OXYGEN HOME NEBULIZERS ACTIVITY/FALL PRECAUTIONS NO DRIVING FOR NOW COVID 19 LAB REVIEW: 12/21/20 05:55 12/21/20 05:55 12/21/20 05:55: WBC 9.64, RBC 4.04 L, Hgb 12.0 L, Hct 38.4 L, MCV 95.0 H, MCH 29.7, MCHC 31.3 L, RDW Coeff of Amber 13.5, Plt Count 94 L D, Neutrophils % (Manual) 90.0 H, Lymphocytes % (Manual) 3.0 L, Monocytes % (Manual) 7.0, Anisocytosis Not present 12/21/20 05:55: Sodium 135.6, Potassium 3.75, Chloride 98.6, Carbon Dioxide 38.8 H, Anion Gap 1.95, BUN 34.0 H, Creatinine 0.72, Estimated GFR (MDRD) 104.00, BUN/Creatinine Ratio 47.22, Glucose 131.0 H, Calcium 9.62, Total Bilirubin 0.38, AST 22.1, ALT 14.1, Alkaline Phosphatase 40.7 L, Total Protein 5.28 L, Albumin 2.90 L, Globulin 2.38, Albumin/Globulin Ratio 1.21 ACTIVITY: UP WITH WALKER DIRECTED PER THERAPY, FREQUENT REST PERIODS. FALL PRECAUTIONS NO DRIVING UNTIL SEE DR. TORRES AT OFFICE VISIT SOCIAL DISTANCING PRECAUTIONS DIET: REGULAR HOSPITAL COURSE: The patient was hospitalized with acute exacerbation of COPD and had CO2 retention with respiratory failure. The patient was aggressively treated with NEBS, Steroids, Inhalers, antibiotics. Oxygen saturation improved. He was put on Vapotherm for 2-3 days which helped him a lot. At the time of discharge the patient's blood gasses were acceptable. O2 retention was not as bad. His appetite had improved. His mental status had improved. He was oriented to time, place and person. The patient is strongly advised not to drive until he sees me back in the office on following Sunday. The patient was discharged on Omnicef 300mg BID for 5 days and Prednisone 20mg BID for four days and after that 20mg PO daily for one of the four days. 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 The patient has lost weight. He lives by himself and unable to take care of by himself but he is very stubborn and refuses any help from family member. One more time he was advised to stop driving until he sees me back in the office. CONDITION: Stable PROGNOSIS: Poor. The patient is DNR. TIME SPENT: More than 60 minutes. [facility]
--- NOTE | 2020-12-23 11:22 | PN ---
12/16/2020: Level 5 12/17:2020: Intermediate 12/18/2020: Intermediate 12/19/2020: Intermediate 12/20/2020: Intermediate 12/21/2020: D as in discharge MTDD
== END 2020-12-21 13:40 | disposition home health service (06) | DRG 189 ==
LOC: ED 13:01 → MEDSURG A 17:04
PROVIDERS: ADMIT Internal Medicine; ATTEND Internal Medicine
DX: Z99.81 Dependence on supplemental oxygen; Z20.822 Contact with and (suspected) exposure to COVID-19; J44.1 Chronic obstructive pulmonary disease with (acute) exacerbation; E87.5 Hyperkalemia; R06.02 Shortness of breath; R60.0 Localized edema; I10 Essential (primary) hypertension; J96.12 Chronic respiratory failure with hypercapnia; R53.1 Weakness; J45.909 Unspecified asthma, uncomplicated; F03.90 Unspecified dementia, unspecified severity, without behavioral disturbance, psychotic disturbance, mood disturbance, and anxiety; N18.2 Chronic kidney disease, stage 2 (mild); F41.9 Anxiety disorder, unspecified; E78.5 Hyperlipidemia, unspecified; D64.9 Anemia, unspecified; I35.0 Nonrheumatic aortic (valve) stenosis; I25.10 Atherosclerotic heart disease of native coronary artery without angina pectoris; E53.8 Deficiency of other specified B group vitamins; R05 Cough